=== PATIENT | male | born 1945 | race Caucasian/White ===

== ENCOUNTER 2020-02-22 13:20 | Emergency (ER) | payer MEDICARE, OTHER, SELFPAY ==
[2020-02-22 13:27] VITALS: BP 128/64; PULSE 97; RESP 16; TEMP 37; O2SAT 97; BMI 22.8
[2020-02-22 13:57] LABS: Appearance Urine UA CLEAR; Bilirubin Urine UA NEGATIVE (NEGATIVE); Color Urine UA YELLOW; Glucose Urine UA NEGATIVE (Negative); Ketones Urine UA NEGATIVE (NEGATIVE); Leukocyte Esterase Urine UA NEGATIVE (NEGATIVE); Nitrite Urine UA NEGATIVE (Negative); Occult Blood Urine UA 2+ (Negative); Protein Urine UA 2+ (Negative); Urobilinogen Urine UA 0.2 E.U./dL (0.2); pH Urine UA 6.5 (4.5-8.0)
[2020-02-22 14:08] LABS: RBC Urine 5-10/HPF (0-5/HPF); Squamous Epithelial Cell Urine 0-1 /HPF (0-5/HPF); WBC Urine 5-10/HPF (0-5/HPF)
[2020-02-22 14:09] LABS: Amorphous Sediment Urine 1+; Bacteria Urine Few (2-10); Culture Indicated Urine Specimen Cultured
--- NOTE | 2020-02-22 14:20 | PC.NURSE ---
patient comes into the ED with complaints of urinary symptoms. He states that on sunday he began having burning, urgency, and incontinence. He been increasingly fatigued and had an episode of confusion where he was not able to tell which day it was and feels the he ate 2 of his antibiotic pills within a 2 hour period. He also states that his scalp is hypersensitive to touch.
--- NOTE | 2020-02-22 14:33 | ED_ITS ---
HPI - Male Genitourinary <Shanthi Cabrales PA-C - Last Filed: 02/22/20 22:25> General Chief complaint: Urogenital-Male Stated complaint: UTI symptoms since Sunday Time Seen by Provider: 02/22/20 14:33 Source: patient Mode of arrival: Ambulatory History of Present Illness HPI Narrative: This is a well-appearing 75-year-old with hyperlipidemia, hypothyroid, rheumatoid arthritis no recent UTIs, who presents to the emergency department complaining of ongoing urgency and discomfort with urination after starting antibiotics for UTI Sunday night. His symptoms started on Sunday morning and gradually worsened throughout the day and included burning sensation with urination, irritation and bladder discomfort. He also had a fever yesterday of 101.3 in the afternoon after he had had 3 doses of cefuroxime. He also had confusion yesterday, his daughter said for a couple of hours he did not seem to know if it was morning or evening and was not able to answer questions appropriately. He seemed generally confused and he actually took 2 doses of his antibiotic yesterday evening one at 4:30 p.m. and one at 6:00 p.m. thinking that he had missed his dose. He says he is also feeling generally fatigued and more tired than usual. Daughter brought him to the emergency department though he has appeared well today has not had any confusion, they were concerned because of his confusion yesterday and that his antibiotics may not be appropriately treating his infection. He currently has no active pain except he says he is still having a burning uncomfortable sensation at the end of his stream and he is still having significant urgency with incontinence. He did not have an actual visit urinalysis or culture but was prescribed antibiotics over a telemedicine visit. Both patient and daughter deny that he had any speech changes, facial droop, coordination issues, headache, nausea, vomiting, chills, diarrhea or any other symptoms. Onset (ago): day(s) (2) Duration: constant and improved Related Data Home Medications Medication Instructions Recorded Confirmed CHOLECALCIFEROL (VITAMIN D) 2,000 iu PO #0 05/09/12 [ATORVASTATIN] 5 mg PO QDAY #0 09/30/12 ASPIRIN (Aspirin EC) 81 mg PO SEE INSTRUCTIONS #0 10/02/12 CA PANTOTHENATE/FOLIC ACID/VIT 1 tab PO Q3DAYS #0 10/02/12 (MULTIVITAMIN) CALCIUM CARBONATE (Calcium) 600 mg PO BIDCC #0 10/02/12 ascorbic acid (vitamin C) 500 mg PO Q3DAYS #0 10/02/12 prednisone 15 mg PO QDAY #0 10/02/12 cefuroxime axetil 500 mg PO BID 02/22/20 02/22/20 Previous Rx's Medication Instructions Recorded prednisone 5 - 10 mg PO BID #45 10/08/12 Allergies Allergy/AdvReac Type Severity Reaction Status Date / Time oxycodone Allergy Mild Rash on Verified 02/22/20 15:29 abdominal area Sulfa (Sulfonamide AdvReac Severe Vomiting Verified 02/22/20 15:28 Antibiotics) and Diarrhea Review of Systems <Shanthi Cabrales PA-C - Last Filed: 02/22/20 22:25> Review of Systems Narrative: GENERAL: Denies chills, positive for generalized fatigue, negative malaise, positive for fever, sweats. HEENT: Denies sinus pain, ear pain, sore throat, difficulty swallowing, dizziness. RESPIRATORY: Denies dyspnea, cough, wheezing, hemoptysis, sputum. CARDIOVASCULAR: Denies chest pain, palpitations, orthopnea, edema, GASTROINTESTINAL: Denies nausea, vomiting, abdominal pain, diarrhea, constipation, melena. : positive for dysuria, frequency, incontinence, negative for hematuria, urinary retention. MUSCULOSKELETAL: denies weakness, joint pain, or bony pain SKIN: Denies rash, skin lesions, or other NEUROLOGIC: Denies weakness, headache, numbness, change in speech, positive for episode of confusion yesterday, negative seizures, incoordination. PSYCHIATRIC: No concerning psychosocial issues. 12 point review of systems is negative except for those stated above Patient History <Shanthi Cabrales PA-C - Last Filed: 02/22/20 22:25> Social History Smoking Status: Former smoker Smoking Status: Former smoker alcohol intake frequency: a few times a week Alcohol type: wine Substance Use Type: does not use Exam <Shanthi Cabrales PA-C - Last Filed: 02/22/20 22:25> Narrative Exam Narrative: GENERAL: 75 year old patient appears stated age. Well-nourished, well-developed patient, in mild distress. HEAD: Atraumatic. Normocephalic. EYES: Pupils equal round and reactive. Extraocular motions intact. No scleral icterus. No injection or drainage. ENT: Nose without bleeding, purulent drainage. Throat without erythema, tonsillar hypertrophy or exudate. Airway patent. NECK: Trachea midline. Non tender CARDIOVASCULAR: Regular rate and rhythm without murmurs, gallops, or rubs. RESPIRATORY: Clear to auscultation. Breath sounds equal bilaterally. No wheezes, rales, or rhonchi. GASTROINTESTINAL: Abdomen soft, non-tender, nondistended. EXTREMITIES: No edema or joint tenderness. BACK: Nontender without deformity or crepitance. No flank or CVA tenderness. NEURO: AOx3. Cranial nerves are intact, strength is intact and equal 5/5 bilaterally UE and LE SKIN: No rash or erythema of visible areas Initial Vital Signs Initial Vital Signs: Vital Signs Temperature 98.6 F 02/22/20 13:27 Pulse Rate 97 H 02/22/20 13:27 Respiratory Rate 16 02/22/20 13:27 Blood Pressure 128/64 02/22/20 13:27 Pulse Oximetry 97 02/22/20 13:27 <Julieta Mays MD - Last Filed: 02/23/20 18:10> Initial Vital Signs Initial Vital Signs: Vital Signs Temperature 98.6 F 02/22/20 13:27 Pulse Rate 97 H 02/22/20 13:27 Respiratory Rate 16 02/22/20 13:27 Blood Pressure 128/64 02/22/20 13:27 Pulse Oximetry 97 02/22/20 13:27 Scores <Shanthi Cabrales PA-C - Last Filed: 02/22/20 22:25> GCS [place] coma scale eye opening: Spontaneous [place] coma scale verbal response: Orientated [place] coma scale motor response: Obey commands [place] coma scale total score: 15 Course <Shanthi Cabrales PA-C - Last Filed: 02/22/20 22:25> Course Course Narrative: Discussed this patient with attending physician Dr. Mays, he does have elevated white count of 18,000 although his lactate is not elevated. It appears that his symptoms are overall improving, his fever has improved with the cefuroxime, however his episode of confusion yesterday is concerning as well as his elevated white count today, plan to give him a bolus of fluid as well as give him ceftriaxone here in the emergency department IV before discharging him to continue his antibiotics orally at home. 15:21 Orders Ordered: Discontinued Medications Acetaminophen (Tylenol) 650 mg PO NOW ONE Stop: 02/22/20 15:58 Last Admin: 02/22/20 16:03 Dose: 650 mg Documented by: MARK Sodium Chloride (Normal Saline 0.9%) 1,000 mls @ 1,000 mls/hr IV BOLUS ONE Stop: 02/22/20 16:23 Last Admin: 02/22/20 15:32 Dose: 1,000 mls/hr Documented by: MARK Ceftriaxone Sodium/Dextrose (Rocephin) 2 gm in 50 mls @ 100 mls/hr IV NOW ONE Stop: 02/22/20 15:54 Last Infusion: 02/22/20 15:56 Dose: 0 mls/hr Documented by: Admin: 02/22/20 15:32 Dose: 100 mls/hr Documented by: MARK Vital Signs Vital signs: Vital Signs - 8 hr 02/22/20 17:04 Pulse Rate 89 Respiratory Rate 12 Blood Pressure 117/64 Pulse Oximetry 94 <Julieta Mays MD - Last Filed: 02/23/20 18:10> Orders Ordered: Discontinued Medications Acetaminophen (Tylenol) 650 mg PO NOW ONE Stop: 02/22/20 15:58 Last Admin: 02/22/20 16:03 Dose: 650 mg Documented by: MARK Sodium Chloride (Normal Saline 0.9%) 1,000 mls @ 1,000 mls/hr IV BOLUS ONE Stop: 02/22/20 16:23 Last Admin: 02/22/20 15:32 Dose: 1,000 mls/hr Documented by: MARK Ceftriaxone Sodium/Dextrose (Rocephin) 2 gm in 50 mls @ 100 mls/hr IV NOW ONE Stop: 02/22/20 15:54 Last Infusion: 02/22/20 15:56 Dose: 0 mls/hr Documented by: Admin: 02/22/20 15:32 Dose: 100 mls/hr Documented by: MARK Vital Signs Vital signs: Vital Signs - 8 hr 02/22/20 17:04 Pulse Rate 89 Respiratory Rate 12 Blood Pressure 117/64 Pulse Oximetry 94 MDM - Male Genitourinary <Shanthi Cabrales PA-C - Last Filed: 02/22/20 22:25> Differential Diagnosis Differential diagnosis: Likely urinary tract infection and other (Leukocytosis, fatigue) Medical Records Attestation: I reviewed the patient's medical records. Lab Data Attestation: I reviewed the patient's lab results. Result diagrams: 02/22/20 13:45 02/22/20 13:45 Labs: Lab Results 02/22/20 02/22/20 02/22/20 Range/Units 13:45 13:45 13:45 WBC 18.0 H (4.5-11.0) X10^3/uL RBC 3.94 L (4.5-5.9) X10^6/uL Hgb 13.4 L (13.5-17.5) g/dL Hct 39.2 L (41-53) % MCV 99.4 (80-100) fL MCH 33.9 (26-34) PG MCHC 34.1 (30-36) % RDW 14.4 (11.6-14.8) % Plt Count 178 (150-400) X10^3/uL Neut % (Auto) 83.6 H (50-75) % Lymph % (Auto) 6.6 L (25-40) % [place] % (Auto) 9.0 (3-14) % Eos % (Auto) 0.3 L (2-4) % Baso % (Auto) 0.5 (0-2) % Neut # (Auto) 89437 H (5389-4692) /uL Lymph # (Auto) 1200 (2726-5325) /uL [place] # (Auto) 1600 H (0-900) /uL Eos # (Auto) 0 (0-450) /uL Baso # (Auto) 100 (0-100) /uL Sodium 135 L (137-145) mmol/L Potassium 3.9 (3.4-5.1) mmol/L Chloride 100 (98-107) mmol/L Carbon Dioxide 28 (22-32) mmol/L BUN 15 (9-20) mg/dL Creatinine 0.96 (0.66-1.25) mg/dL Estimated GFR > 60.0 (>60) mL/min BUN/Creatinine Ratio 15.6 (6-22) Glucose 118 H (80-110) mg/dL Lactate 1.4 (0.7-2.1) mmol/L Calcium 9.4 (8.4-10.2) mg/dL Urine Color Urine Appearance Urine pH (4.5-8.0) Ur Specific [place] (1.000-1.035) Urine Protein (Negative) Urine Glucose (UA) (Negative) g/dL Urine Ketones (NEGATIVE) Urine Occult Blood (Negative) Urine Nitrate (Negative) Urine Bilirubin (NEGATIVE) Urine Urobilinogen (0.2) E.U./dL Ur Leukocyte Esterase (NEGATIVE) Urine RBC (0-5/HPF) Urine WBC (0-5/HPF) Ur Squamous Epith Cells (0-5/HPF) Amorphous Sediment Urine Bacteria (None) Ur Culture Indicated? 02/22/20 Range/Units 13:53 WBC (4.5-11.0) X10^3/uL RBC (4.5-5.9) X10^6/uL Hgb (13.5-17.5) g/dL Hct (41-53) % MCV (80-100) fL MCH (26-34) PG MCHC (30-36) % RDW (11.6-14.8) % Plt Count (150-400) X10^3/uL Neut % (Auto) (50-75) % Lymph % (Auto) (25-40) % [place] % (Auto) (3-14) % Eos % (Auto) (2-4) % Baso % (Auto) (0-2) % Neut # (Auto) (2132-9826) /uL Lymph # (Auto) (7638-5135) /uL [place] # (Auto) (0-900) /uL Eos # (Auto) (0-450) /uL Baso # (Auto) (0-100) /uL Sodium (137-145) mmol/L Potassium (3.4-5.1) mmol/L Chloride (98-107) mmol/L Carbon Dioxide (22-32) mmol/L BUN (9-20) mg/dL Creatinine (0.66-1.25) mg/dL Estimated GFR (>60) mL/min BUN/Creatinine Ratio (6-22) Glucose (80-110) mg/dL Lactate (0.7-2.1) mmol/L Calcium (8.4-10.2) mg/dL Urine Color Yellow Urine Appearance Clear Urine pH 6.5 (4.5-8.0) Ur Specific [place] 1.010 (1.000-1.035) Urine Protein 2+ H (Negative) Urine Glucose (UA) Negative (Negative) g/dL Urine Ketones Negative (NEGATIVE) Urine Occult Blood 2+ H (Negative) Urine Nitrate Negative (Negative) Urine Bilirubin Negative (NEGATIVE) Urine Urobilinogen 0.2 (0.2) E.U./dL Ur Leukocyte Esterase Negative (NEGATIVE) Urine RBC 5-10/hpf H (0-5/HPF) Urine WBC 5-10/hpf H (0-5/HPF) Ur Squamous Epith Cells 0-1 /hpf (0-5/HPF) Amorphous Sediment 1+ Urine Bacteria Few (2-10) H (None) Ur Culture Indicated? Specimen cultured MDM Narrative Medical decision making narrative: This is a generally healthy active 75-year-old gentleman with rheumatoid arthritis, hypothyroid, and hyperlipidemia who presents to the emergency department complaining of ongoing urinary symptoms though he has been taking antibiotics since Sunday evening. He developed acute urinary symptoms on Sunday which worsened throughout the day and was prescribed antibiotics after a telemedicine visit. Sunday he had an episode of confusion lasting about 2 hours and took multiple doses of his antibiotic (cefuroxime, 3 total during the day). He also had a fever at that time of 101.3. Since that time he has had no continued confusion, no fever and has been doing well other than feeling slightly fatigued. Labs today are unremarkable with exception of a leukocytosis. His vitals are unremarkable, he has a normal neuro exam, he does not meet sepsis criteria, his urinary symptoms have largely resolved with exception of continued mild dysuria and urge incontinence. I have low suspicion for CVA or TIA, I think his episode of confusion was likely due to his infection which is now improving after he has been on antibiotics for 2 days. After discussion with the attending physician, he was provided with a fluid bolus and ceftriaxone IV prior to discharge home to continue his oral antibiotics. He will have close follow-up with his primary care physician. He has a very attentive daughter, emergency return precautions provided, all questions answered. <Julieta Mays MD - Last Filed: 02/23/20 18:10> Lab Data Labs: Lab Results 02/22/20 02/22/20 02/22/20 Range/Units 13:45 13:45 13:45 WBC 18.0 H (4.5-11.0) X10^3/uL RBC 3.94 L (4.5-5.9) X10^6/uL Hgb 13.4 L (13.5-17.5) g/dL Hct 39.2 L (41-53) % MCV 99.4 (80-100) fL MCH 33.9 (26-34) PG MCHC 34.1 (30-36) % RDW 14.4 (11.6-14.8) % Plt Count 178 (150-400) X10^3/uL Neut % (Auto) 83.6 H (50-75) % Lymph % (Auto) 6.6 L (25-40) % [place] % (Auto) 9.0 (3-14) % Eos % (Auto) 0.3 L (2-4) % Baso % (Auto) 0.5 (0-2) % Neut # (Auto) 50282 H (7351-7313) /uL Lymph # (Auto) 1200 (4331-2152) /uL [place] # (Auto) 1600 H (0-900) /uL Eos # (Auto) 0 (0-450) /uL Baso # (Auto) 100 (0-100) /uL Sodium 135 L (137-145) mmol/L Potassium 3.9 (3.4-5.1) mmol/L Chloride 100 (98-107) mmol/L Carbon Dioxide 28 (22-32) mmol/L BUN 15 (9-20) mg/dL Creatinine 0.96 (0.66-1.25) mg/dL Estimated GFR > 60.0 (>60) mL/min BUN/Creatinine Ratio 15.6 (6-22) Glucose 118 H (80-110) mg/dL Lactate 1.4 (0.7-2.1) mmol/L Calcium 9.4 (8.4-10.2) mg/dL Urine Color Urine Appearance Urine pH (4.5-8.0) Ur Specific [place] (1.000-1.035) Urine Protein (Negative) Urine Glucose (UA) (Negative) g/dL Urine Ketones (NEGATIVE) Urine Occult Blood (Negative) Urine Nitrate (Negative) Urine Bilirubin (NEGATIVE) Urine Urobilinogen (0.2) E.U./dL Ur Leukocyte Esterase (NEGATIVE) Urine RBC (0-5/HPF) Urine WBC (0-5/HPF) Ur Squamous Epith Cells (0-5/HPF) Amorphous Sediment Urine Bacteria (None) Ur Culture Indicated? 02/22/20 Range/Units 13:53 WBC (4.5-11.0) X10^3/uL RBC (4.5-5.9) X10^6/uL Hgb (13.5-17.5) g/dL Hct (41-53) % MCV (80-100) fL MCH (26-34) PG MCHC (30-36) % RDW (11.6-14.8) % Plt Count (150-400) X10^3/uL Neut % (Auto) (50-75) % Lymph % (Auto) (25-40) % [place] % (Auto) (3-14) % Eos % (Auto) (2-4) % Baso % (Auto) (0-2) % Neut # (Auto) (4204-2037) /uL Lymph # (Auto) (4321-1585) /uL [place] # (Auto) (0-900) /uL Eos # (Auto) (0-450) /uL Baso # (Auto) (0-100) /uL Sodium (137-145) mmol/L Potassium (3.4-5.1) mmol/L Chloride (98-107) mmol/L Carbon Dioxide (22-32) mmol/L BUN (9-20) mg/dL Creatinine (0.66-1.25) mg/dL Estimated GFR (>60) mL/min BUN/Creatinine Ratio (6-22) Glucose (80-110) mg/dL Lactate (0.7-2.1) mmol/L Calcium (8.4-10.2) mg/dL Urine Color Yellow Urine Appearance Clear Urine pH 6.5 (4.5-8.0) Ur Specific [place] 1.010 (1.000-1.035) Urine Protein 2+ H (Negative) Urine Glucose (UA) Negative (Negative) g/dL Urine Ketones Negative (NEGATIVE) Urine Occult Blood 2+ H (Negative) Urine Nitrate Negative (Negative) Urine Bilirubin Negative (NEGATIVE) Urine Urobilinogen 0.2 (0.2) E.U./dL Ur Leukocyte Esterase Negative (NEGATIVE) Urine RBC 5-10/hpf H (0-5/HPF) Urine WBC 5-10/hpf H (0-5/HPF) Ur Squamous Epith Cells 0-1 /hpf (0-5/HPF) Amorphous Sediment 1+ Urine Bacteria Few (2-10) H (None) Ur Culture Indicated? Specimen cultured Discharge Plan Departure Patient Disposition: Home Clinical Impression: Urinary tract infection Qualifiers: Urinary tract infection type: acute cystitis Hematuria presence: without hematuria Qualified Code(s): N30.00 - Acute cystitis without hematuria Leukocytosis Qualifiers: Leukocytosis type: unspecified Qualified Code(s): D72.829 - Elevated white blood cell count, unspecified Discharge Date/Time: 02/22/20 17:06 Instructions: DI for Urinary Tract Infection (UTI) Activity Restrictions/Additional Instructions: Thank you for letting us to be part of your care today in the emergency department. Will most of your labs look good today, you still have evidence that your body's fighting a urinary tract infection, with an elevated white count and findings on your urinalysis. I do not think that you have an infection that has extended to your kidneys at this point, however your episode of confusion yesterday is concerning and in light of the fact that you also had a fever yesterday and to have an elevated white count today we administered IV fluids and IV antibiotics in the emergency department. You should still continue to take your oral antibiotics as prescribed. I think that these were beginning to work well but having the additional IV antibiotics today should help to keep your infection from worsening. Please keep monitoring her symptoms at home including checking your temperature, please try to stay well hydrated. I would like you to see your primary care provider in the next few days for follow-up. If you continue to have issues with incontinence even after the rather low resolution of your infection, you may also want to see a urologist. I suspect this symptom is due to your infection as you state that that is new for you. If you have new, worsening or concerning symptoms do not hesitate to seek medical care return to the emergency department for further evaluation. Th ere is no evidence of an emergent or life threatening illness at this time, but follow up with your doctor in 1-2 days is recommended nonetheless to continue to rule out serious underlying causes of your symptoms. Please call the office for an appointment. Please return to the Emergency Department for any worsening or persistent symptoms. Please take medications as directed. Prescriptions: No Action CHOLECALCIFEROL (VITAMIN D) 2,000 iu PO Qty: 0 RF: 0 prednisone 20 MG tablet 5 - 10 mg PO BID Qty: 45 RF: 0 [ATORVASTATIN] 5 mg PO QDAY Qty: 0 RF: 0 ASPIRIN (Aspirin EC) 81 mg PO SEE INSTRUCTIONS Qty: 0 RF: 0 prednisone 5 MG tablet 15 mg PO QDAY Qty: 0 RF: 0 CA PANTOTHENATE/FOLIC ACID/VIT (MULTIVITAMIN) 1 tab PO Q3DAYS Qty: 0 RF: 0 CALCIUM CARBONATE (Calcium) 600 mg PO BIDCC Qty: 0 RF: 0 ascorbic acid (vitamin C) 500 MG tablet 500 mg PO Q3DAYS Qty: 0 RF: 0 cefuroxime axetil 500 mg Tablet 500 mg PO BID RF: 0 Referrals: Kami Solares MD [Primary Care Provider] - <Julieta Mays MD - Last Filed: 02/23/20 18:10> Cosign ED Attending Cosignature Attestation: I was immediately available in the department for consultation throughout this patient's visit. I agree with documentation as above. Julieta Mays MD
[2020-02-22 15:01] LABS: Add Manual Diff / Slide Review NO; Basophils Absolute Auto 100 /uL (0-100); Basophils Percent Auto 0.5 % (0-2); Eosinophils Absolute Auto 0 /uL (0-450); Eosinophils Percent Auto 0.3 % (2-4); Hematocrit 39.2 % (41-53); Hemoglobin 13.4 g/dL (13.5-17.5); Lymphocytes Absolute Auto 1200 /uL (1100-4500); Lymphocytes Percent Auto 6.6 % (25-40); Mean Corpuscular HGB Conc 34.1 % (30-36); Mean Corpuscular Hemoglobin 33.9 PG (26-34); Mean Corpuscular Volume 99.4 fL (80-100); Monocytes Absolute Auto 1600 /uL (0-900); Neutrophils Absolute Auto 15100 /uL (1500-7000); Neutrophils Percent Auto 83.6 % (50-75); Platelet Count 178 X10^3/uL (150-400); Red Blood Cell Count 3.94 X10^6/uL (4.5-5.9); Red Cell Distribution Width 14.4 % (11.6-14.8)
[2020-02-22 15:05] LABS: Lactate (Lactic Acid) 1.4 mmol/L (0.7-2.1)
[2020-02-22 15:06] LABS: BUN Creatinine Ratio 15.6 (6-22); Blood Urea Nitrogen 15 mg/dL (9-20); Calcium 9.4 mg/dL (8.4-10.2); Carbon Dioxide 28 mmol/L (22-32); Chloride 100 mmol/L (98-107); Estimated Glomerular Filt Rate > 60.0 mL/min (>60); Glucose 118 mg/dL (80-110); HEMOLYSIS < 15 (0-50); Potassium 3.9 mmol/L (3.4-5.1); Sodium 135 mmol/L (137-145)
[2020-02-22] MEDS: SODIUM CHLORIDE 0.9% 1,000 ML 1000 ML IV (15:32)
[2020-02-22] MEDS: CEFTRIAXONE 2 GM/50 ML FROZ.PIGGY IV (15:32)
[2020-02-22] MEDS: ACETAMINOPHEN 325 MG TABLET 650 MG PO (16:03)
[2020-02-22 17:04] VITALS: BP 117/64; PULSE 89; RESP 12; O2SAT 94
== END 2020-02-22 17:06 | disposition home or self-care (01) ==
PROVIDERS: Emergency Medicine; Emergency Provider Student in an Organized Health Care Education/Training Program; PCP Student in an Organized Health Care Education/Training Program
DX: N30.00 Acute cystitis without hematuria (principal); D72.829 Elevated white blood cell count, unspecified
CPT/HCPCS: 36415; 80048; 81001; 83605; 85025; 87086; 96365; 99284; J0696

== ENCOUNTER → 2020-06-07 11:05 | Outpatient (CLI) | payer MEDICARE, OTHER, SELFPAY ==
[2020-06-07 12:17] LABS: COVID19 -Nasal RAPID Negative (Negative)
== END ==
PROVIDERS: PCP Student in an Organized Health Care Education/Training Program; Visit Provider Physician Assistant
DX: Z01.812 Encounter for preprocedural laboratory examination; Z20.828 Contact with and (suspected) exposure to other viral communicable diseases
CPT/HCPCS: 87635; C9803

== ENCOUNTER → 2020-06-09 15:06 | Outpatient (CLI) | payer MEDICARE, OTHER, SELFPAY | PROVIDERS: PCP Student in an Organized Health Care Education/Training Program; Referring Provider Student in an Organized Health Care Education/Training Program; Visit Provider Student in an Organized Health Care Education/Training Program | DX: R42 Dizziness and giddiness (principal); Z53.9 Procedure and treatment not carried out, unspecified reason ==

== ENCOUNTER → 2020-07-03 13:10 | Outpatient (CLI) | payer MEDICARE, OTHER, SELFPAY ==
[2020-07-03 14:40] LABS: COVID19 -Nasal RAPID Negative (Negative)
== END ==
PROVIDERS: PCP Student in an Organized Health Care Education/Training Program; Visit Provider Nurse Practitioner
DX: Z01.812 Encounter for preprocedural laboratory examination (principal); Z20.822 Contact with and (suspected) exposure to COVID-19
CPT/HCPCS: 87635; C9803

== ENCOUNTER → 2020-07-05 15:16 | Outpatient (CLI) | payer MEDICARE, OTHER, SELFPAY ==
--- NOTE | 2020-07-05 15:48 | PM.TREADMILL ---
Cardiac Stress Test Report Referral & Results Date Patient Seen: 07/05/20 Time Patient Seen: 15:48 Requesting provider: Kami Solares Indication: dizziness and giddiness Rest ECG: sinus rhythm Procedure Note: Standard Royer protocol, 4:55, 5.9 METS Slightly reduced exercise capacity, NIDA +9% Normal hemodynamic response to exercise No chest pain or anginal symptoms 1.[address] depression in II, III, aVF, V4-V6 Impression: positive exercise stress test Please note: Actual ECG tracings can be found in the PACS system.
--- NOTE | 2020-07-05 20:04 | DI.NM.S_ITS ---
DATE OF SERVICE: 07/05/2020 NO DICTATION Samuel Manning - LIVIER/dai/guille doc#: [id number]/job#: [id number] dd: 07/05/2020 17:33:00 dt: 07/05/2020 19:54:00 DICTATING MD/COPIES TO: Floridalma Little MD COPIES MNE: BENITO;
--- NOTE | 2020-07-05 20:11 | DI.NM.S_ITS ---
DATE OF SERVICE: 07/05/2020 PROCEDURE: Exercise stress test. INDICATION: Dizziness, presyncope. EXERCISE STRESS TEST: The patient underwent exercise stress test under the supervision of an attending staff. He walked on Royer protocol for 4 minutes 55 seconds, achieved 97 percent of target heart rate and normal blood pressure response, 7 METs of workload and functional aerobic impairment positive 9 percent. Baseline rhythm was sinus with some flattening and repolarization changes in the inferior lateral leads. During exercise, artifacts were seen, but in immediate recovery, the patient has up to 1.5 mm horizontal, as well as upsloping ST depression, in inferior leads and V4 to V6 and about [address]- elevation in lead aVR. ST depression lasted for more than 5 minutes in recovery. The patient did not have any chest pain or anginal symptoms. He felt fatigued. CONCLUSION: Exercise test is positive for inducible ischemia. Diminished exercise tolerance. No significant arrhythmia seen. Normal hemodynamic response. Discussed the finding with the second cutter physician, Dr. Ulloa, who is taking care of and covering Dr. Solares. Will recommend treating this patient like a coronary artery disease and consider left heart catheterization. Samuel Manning - LIVIER/dai/guille doc#: [id number]/job#: [id number] dd: 07/05/2020 17:42:00 dt: 07/05/2020 19:54:00 DICTATING /COPIES TO: Floridalma Little MD COPIES MNE: BEN[place]O;
== END ==
PROVIDERS: PCP Student in an Organized Health Care Education/Training Program; Referring Provider Student in an Organized Health Care Education/Training Program; Visit Provider Student in an Organized Health Care Education/Training Program
DX: I25.9 Chronic ischemic heart disease, unspecified (principal); R42 Dizziness and giddiness; R55 Syncope and collapse
CPT/HCPCS: 93017

== ENCOUNTER 2020-08-01 15:03 | Observation (INO) | payer MEDICARE, OTHER, SELFPAY ==
[2020-08-01] VITALS (14 sets, daily range): BP systolic 128–169; BP diastolic 73–80; PULSE 61–74; RESP 14–24; TEMP 36.4–37.2; O2SAT 97–100; BMI 22.8
--- NOTE | 2020-08-01 15:09 | ED.GENADULT ---
HPI - General Adult General Chief complaint: Dizziness Stated complaint: dizzy spell, weakness, left arm numbness Time Seen by Provider: 08/01/20 15:08 Source: patient and family Mode of arrival: Ambulatory Limitations: no limitations History of Present Illness HPI narrative: Patient is a 75-year-old male. History of rheumatoid arthritis, hypothyroidism, hypertension and coronary artery disease here for evaluation of dizziness, left-sided facial tingling, left arm numbness. He states the symptoms started approximately noon today. He was standing in the kitchen making some food when the episodes occurred. He denies any chest pain or shortness of breath. He has had dizziness in the past and has seen his primary doctor for this. Has also seen Cardiology. Approximately 2 weeks ago had an exercise stress test which did show reversible ischemia. Patient states that he was sent to see Cardiology for by his primary doctor because of the dizziness that he has had. He states that today his dizziness is what he has had in the past however he has never had the fatigue or the facial tingling or the left arm numbness or the balance issues that are associated with it. He states that at the time of my exam his symptoms have improved since her onset but he is not back to baseline. He describes the dizziness as more of a difficulty walking and not a room spinning sensation. Has not tried anything for symptoms prior to arrival Related Data Home Medications Medication Instructions Recorded Confirmed CHOLECALCIFEROL (VITAMIN D) 2,000 iu PO #0 05/09/12 07/06/20 [ATORVASTATIN] 5 mg PO QDAY #0 09/30/12 07/06/20 ASPIRIN (Aspirin EC) 81 mg PO SEE INSTRUCTIONS #0 10/02/12 07/06/20 CA PANTOTHENATE/FOLIC ACID/VIT 1 tab PO Q3DAYS #0 10/02/12 07/06/20 (MULTIVITAMIN) CALCIUM CARBONATE (Calcium) 600 mg PO BIDCC #0 10/02/12 07/06/20 ascorbic acid (vitamin C) 500 mg PO Q3DAYS #0 10/02/12 07/06/20 prednisone 15 mg PO QDAY #0 10/02/12 07/06/20 cefuroxime axetil 500 mg PO BID 02/22/20 07/06/20 atorvastatin 20 mg tablet 20 mg PO DAILY 06/01/20 07/06/20 calcium carbonate 500 mg calcium 500 mg PO DAILY 06/01/20 07/06/20 (1,250 mg) tablet cholecalciferol (vitamin D3) 50 50 mcg PO DAILY 06/01/20 07/06/20 mcg (2,000 unit) capsule levothyroxine 50 mcg tablet 50 mcg PO DAILY 06/01/20 07/06/20 naphazo HCl 0.025 %-hyprome 0.2 drp OPHTHALMIC (EYE) 06/01/20 07/06/20 %-ps 80 0.5 %-Zn sulf 0.25 % eye drops vitamin B complex 1 tab PO DAILY 06/01/20 07/06/20 zinc 50 mg tablet 50 mg PO DAILY 06/01/20 07/06/20 Previous Rx's Medication Instructions Recorded prednisone 5 - 10 mg PO BID #45 10/08/12 Allergies Allergy/AdvReac Type Severity Reaction Status Date / Time oxycodone Allergy Mild Rash on Verified 07/06/20 10:28 abdominal area ciprofloxacin Allergy Verified 07/06/20 10:28 Sulfa (Sulfonamide AdvReac Severe Vomiting Verified 07/06/20 10:28 Antibiotics) and Diarrhea Review of Systems Constitutional Constitutional: Denies fever(s), Denies headache(s) and Reports weakness Eyes Eyes: Denies exophthalmos ENT Ears, Nose, Mouth, and Throat: Denies vertigo, Reports dizziness, Denies otalgia, Denies headache(s), Reports disequilibrium and Denies sore throat Cardiovascular Cardiovascular: Denies chest pain, Denies rapid heart rate and Denies dyspnea Respiratory Respiratory: Denies cough and Denies dyspnea Gastrointestinal Gastrointestinal: Denies abdominal pain, Denies nausea and Denies vomiting Genitourinary Genitourinary: Denies dysuria Genitourinary: Denies dysuria Musculoskeletal Musculoskeletal: Reports abnormal gait, Denies arthralgias, Denies myalgias and Denies tingling Integumentary/Breasts Skin/Breast: Denies lesions and Denies rash Neurologic Neurologic: Denies abnormal speech, Reports abnormal gait, Denies confusion, Denies vertigo, Reports dizziness, Denies headache(s), Reports lack of coordination, Denies convulsions, Denies tingling, Reports disequilibrium and Reports weakness Psychiatric Psychiatric: Denies confusion Hematologic/Lymphatic On Anticoagulants: No Allergic/Immunologic Allergic/Immunologic: Denies urticaria Patient History Medical History BPH NOS w/o ur obs/LUTS Elevated PSA Erectile dysfunction Osteoarthritis Rheumatoid arthritis Surgical History History of back surgery Family History Brother Hearing impaired Social History marital status: number of children: 1 occupational status: previously employed Smoking Status: Former smoker alcohol intake: current caffeine: Yes Smoking Status: Former smoker alcohol intake frequency: a few times a week Alcohol type: wine Substance Use Type: does not use Exam Initial Vital Signs Initial Vital Signs: Vital Signs Temperature 97.8 F 08/01/20 15:07 Pulse Rate 65 08/01/20 15:07 Respiratory Rate 20 08/01/20 15:07 Blood Pressure 153/73 H 08/01/20 15:07 Pulse Oximetry 98 08/01/20 15:07 Const General: cooperative, healthy appearing, comfortable, well developed, well groomed and No acute distress Limitations: mental status not altered HENSC Head: normal to inspection and normocephalic Resp Effort & Inspection: normal respiratory effort Auscultation: clear to auscultation bilaterally Cardio Rate: regular rate Rhythm: regular rhythm GI Inspection: non-distended Skin Lesions: no lesions Rashes: no rashes Neuro General: patient alert, patient awake and patient oriented x3 Cranial Nerves: CN's II-XI intact bilaterally Cognition: normal cognition Speech: speech normal Gait: ataxic Motor: muscle tone normal throughout Sensory Exam: no sensory deficits noted Extrem General: capillary refill normal and No edema Psych Appearance: grossly normal and well kempt Scores GCS Pardeep coma scale eye opening: Spontaneous [place] coma scale verbal response: Orientated [place] coma scale motor response: Obey commands Pardeep coma scale total score: 15 Course Orders Ordered: ED Orders 08/01/20 15:10 EKG-12 Lead Stat 08/01/20 15:11 XR chest 1V Stat Complete Blood Count AUTO DIFF Stat Comprehensive Metabolic Panel Stat Lipase Stat NT-proBNP (BNP-Adult 18+) Stat Partial Thromboplastin Time Stat Prothrombin Time INR Stat Troponin & CK Cardiac Panel Stat 08/01/20 15:20 COVID19 Stat 08/01/20 15:29 CT head/brain wo con Stat Discontinued Medications Aspirin (Aspirin 81 Mg Chew Tab) 324 mg PO NOW ONE Stop: 08/01/20 16:58 Last Admin: 08/01/20 17:10 Dose: 324 mg Documented by: HERIBERTO Vital Signs Vital signs: Vital Signs - 8 hr 08/01/20 15:07 08/01/20 15:17 08/01/20 15:23 Temperature 97.8 F Pulse Rate 65 73 74 Respiratory Rate 20 24 22 Blood Pressure 153/73 H Pulse Oximetry 98 99 100 08/01/20 15:24 08/01/20 15:30 08/01/20 16:00 Temperature Pulse Rate 63 70 72 Respiratory Rate 17 17 14 Blood Pressure 150/77 H 157/75 H Pulse Oximetry 98 99 97 08/01/20 16:06 08/01/20 16:30 08/01/20 17:00 Temperature Pulse Rate 71 64 69 Respiratory Rate 22 15 20 Blood Pressure 144/78 H 145/77 H Pulse Oximetry 98 97 99 08/01/20 17:01 Temperature Pulse Rate 68 Respiratory Rate 19 Blood Pressure 169/78 H Pulse Oximetry 99 Medical Decision Making Medical Records Medical records reviewed: Yes I reviewed the patient's medical records. Lab Data Lab results reviewed: Yes I reviewed the patient's lab results. Result diagrams: 08/01/20 15:11 08/01/20 15:11 Labs: Lab Results 08/01/20 08/01/20 08/01/20 Range/Units 15:11 15:11 15:11 WBC 6.6 (4.5-11.0) X10^3/uL RBC 4.84 (4.5-5.9) X10^6/uL Hgb 14.8 (13.5-17.5) g/dL Hct 45.5 (41-53) % MCV 94.1 (80-100) fL MCH 30.5 (26-34) PG MCHC 32.4 (30-36) % RDW 13.6 (11.6-14.8) % Plt Count 205 (150-400) X10^3/uL Neut % (Auto) 48.5 L (50-75) % Lymph % (Auto) 36.9 (25-40) % [place] % (Auto) 10.3 (3-14) % Eos % (Auto) 2.9 (2-4) % Baso % (Auto) 1.4 (0-2) % Neut # (Auto) 3200 (9035-2501) /uL Lymph # (Auto) 2400 (3367-8463) /uL [place] # (Auto) 700 (0-900) /uL Eos # (Auto) 200 (0-450) /uL Baso # (Auto) 100 (0-100) /uL PT 12.0 (10.1-12.7) SECONDS INR 1.0 (0.9-1.3) APTT 35 (26.4-36.2) SECONDS Sodium 137 (137-145) mmol/L Potassium 4.1 (3.4-5.1) mmol/L Chloride 102 (98-107) mmol/L Carbon Dioxide 31 (22-32) mmol/L BUN 18 (9-20) mg/dL Creatinine 1.09 (0.66-1.25) mg/dL Estimated GFR > 60.0 (>60) mL/min BUN/Creatinine Ratio 16.5 (6-22) Glucose 117 H (80-110) mg/dL Calcium 9.4 (8.4-10.2) mg/dL Total Bilirubin 0.4 (0.2-1.3) mg/dL AST 36 (17-59) IU/L ALT 26 (<50) IU/L Alkaline Phosphatase 77 (38-126) U/L Total Creatine Kinase 59 (55-170) U/L CK-MB (CK-2) TNP CK-MB (CK-2) Rel Index TNP Troponin I < 0.012 (0.01-0.034) ng/mL NT-Pro-B Natriuret Pep 341 (<450) pg/mL Total Protein 7.8 (6.3-8.2) g/dL Albumin 4.0 (3.5-5.0) g/dL Globulin 3.8 (1.7-4.1) g/dL Albumin/Globulin Ratio 1.1 (1.0-2.8) Lipase 183 (23-300) U/L SARS-CoV-2 (PCR) (Negative) 08/01/20 Range/Units 15:20 WBC (4.5-11.0) X10^3/uL RBC (4.5-5.9) X10^6/uL Hgb (13.5-17.5) g/dL Hct (41-53) % MCV (80-100) fL MCH (26-34) PG MCHC (30-36) % RDW (11.6-14.8) % Plt Count (150-400) X10^3/uL Neut % (Auto) (50-75) % Lymph % (Auto) (25-40) % [place] % (Auto) (3-14) % Eos % (Auto) (2-4) % Baso % (Auto) (0-2) % Neut # (Auto) (8206-7914) /uL Lymph # (Auto) (4215-1997) /uL [place] # (Auto) (0-900) /uL Eos # (Auto) (0-450) /uL Baso # (Auto) (0-100) /uL PT (10.1-12.7) SECONDS INR (0.9-1.3) APTT (26.4-36.2) SECONDS Sodium (137-145) mmol/L Potassium (3.4-5.1) mmol/L Chloride (98-107) mmol/L Carbon Dioxide (22-32) mmol/L BUN (9-20) mg/dL Creatinine (0.66-1.25) mg/dL Estimated GFR (>60) mL/min BUN/Creatinine Ratio (6-22) Glucose (80-110) mg/dL Calcium (8.4-10.2) mg/dL Total Bilirubin (0.2-1.3) mg/dL AST (17-59) IU/L ALT (<50) IU/L Alkaline Phosphatase (38-126) U/L Total Creatine Kinase (55-170) U/L CK-MB (CK-2) CK-MB (CK-2) Rel Index Troponin I (0.01-0.034) ng/mL NT-Pro-B Natriuret Pep (<450) pg/mL Total Protein (6.3-8.2) g/dL Albumin (3.5-5.0) g/dL Globulin (1.7-4.1) g/dL Albumin/Globulin Ratio (1.0-2.8) Lipase (23-300) U/L SARS-CoV-2 (PCR) Negative (Negative) Imaging Data CT scan - head: Radiologist's Impression: Findings consistent with cerebral volume loss and microvascular ischemic changes. Age indeterminate although likely chronic lacunar infarcts are noted within the left frontal and right parietal lobes. No acute trans cortical infarction. ECG Data Attestation: I personally reviewed and interpreted this ECG as follows: Prior ECG tracings: not available for review Interpretation: Sinus rhythm Ventricular rate is 71 Normal axis Normal QRS Normal QTC No ST T wave changes MDM Narrative Medical decision making narrative: Patient denies any chest pain or shortness of breath. His EKG is unremarkable. Troponin is unremarkable. The dizziness that he had today is more of a lightheadedness and not vertigo. It appears that he has had this in the past. What is new today is the fatigue and the tingling in his left arm and the gait issues. Given his presentation and his history there is concerned about TIA/CVA. I have more suspicion for a neurologic issue rather than a cardiovascular issue although this is somewhat of a concern given his presentation and also his prior stress test result. I discussed the case with Dr. Hernandez who is on-call for the patient's primary provider who will admit for further evaluation and treatment. I did discuss this with the patient as well and he expressed understanding and agreement. Discharge Plan Departure Patient Disposition: Admitted as Observation Clinical Impression: TIA (transient ischemic attack) Admit Date/Time: 08/01/20 17:13 Admit Provider: Tone Hernandez
--- NOTE | 2020-08-01 15:11 | DI.RAD.S_ITS ---
PROCEDURE: XR CHEST 1V INDICATIONS: chest pain TECHNIQUE: One view of the chest was acquired. COMPARISON: None. FINDINGS: Surgical changes and devices: None. Lungs and pleura: Lungs are clear. No pleural effusions or pneumothorax. There is likely an azygos fissure, normal variant. Mediastinum: Mediastinal contours appear normal. Heart size is normal. Bones and chest wall: No suspicious bony lesions. Heterogeneous region of sclerosis within the proximal left humeral metaphysis which may represent enchondroma versus bone infarct. Mild degenerative changes of the spine and shoulders. Overlying soft tissues appear unremarkable. IMPRESSION: No evidence of an acute cardiopulmonary abnormality. Dictated by: Misael Coppola D.O. on 08/01/2020 at 14:49 Approved by: Misael Coppola D.O. on 08/01/2020 at 14:51
[2020-08-01 15:28] LABS: Add Manual Diff / Slide Review NO; Basophils Absolute Auto 100 /uL (0-100); Basophils Percent Auto 1.4 % (0-2); Eosinophils Absolute Auto 200 /uL (0-450); Eosinophils Percent Auto 2.9 % (2-4); Hematocrit 45.5 % (41-53); Hemoglobin 14.8 g/dL (13.5-17.5); Lymphocytes Absolute Auto 2400 /uL (1100-4500); Lymphocytes Percent Auto 36.9 % (25-40); Mean Corpuscular HGB Conc 32.4 % (30-36); Mean Corpuscular Hemoglobin 30.5 PG (26-34); Mean Corpuscular Volume 94.1 fL (80-100); Monocytes Absolute Auto 700 /uL (0-900); Monocytes Percent Auto 10.3 % (3-14); Neutrophils Absolute Auto 3200 /uL (1500-7000); Neutrophils Percent Auto 48.5 % (50-75); Platelet Count 205 X10^3/uL (150-400); Red Blood Cell Count 4.84 X10^6/uL (4.5-5.9); Red Cell Distribution Width 13.6 % (11.6-14.8); White Blood Cell Count 6.6 X10^3/uL (4.5-11.0)
--- NOTE | 2020-08-01 15:29 | DI.CT.S_ITS ---
PROCEDURE: CT HEAD/BRAIN WO CON INDICATIONS: dizziness and ataxic gait TECHNIQUE: Noncontrast 4.5 mm thick angled axial sections acquired from the foramen magnum to the vertex, with coronal and sagittal reformats. For radiation dose reduction, the following was used: automated exposure control, adjustment of mA and/or kV according to patient size. COMPARISON: None. FINDINGS: Image quality: Artifact at the skull base. CSF spaces: Ventricles and extra-axial CSF spaces are prominent consistent with cerebral atrophy and ex vacuo dilatation. Brain: There is diffuse foci and confluent regions of white matter hypoattenuation. This includes age indeterminate, likely chronic lacunar infarcts within the left frontal and right parietal lobes . No acute intracranial hemorrhage. No mass effect or midline shift. Atherosclerotic calcifications are noted within the proximal intracranial vasculature. Garza-white matter differentiation is maintained. Skull and face: Calvarium and visualized facial bones appear intact, without suspicious lesions. Sinuses: Visualized sinuses and mastoids are clear. IMPRESSION: Findings consistent with cerebral volume loss and microvascular ischemic changes. Age indeterminate although likely chronic lacunar infarcts are noted within the left frontal and right parietal lobes. No acute transcortical infarction. Dictated by: Misael Coppola D.O. on 08/01/2020 at 14:56 Approved by: Misael Coppola D.O. on 08/01/2020 at 15:00
[2020-08-01 15:40] LABS: PTT Partial Thromboplastin Tim 35 SECONDS (26.4-36.2)
[2020-08-01 15:41] LABS: Alanine Aminotransferase 26 IU/L (<50); Albumin Globulin Ratio 1.1 (1.0-2.8); Alkaline Phosphatase 77 U/L (38-126); Aspartate Aminotransferase 36 IU/L (17-59); BUN Creatinine Ratio 16.5 (6-22); Bilirubin Total 0.4 mg/dL (0.2-1.3); Blood Urea Nitrogen 18 mg/dL (9-20); Calcium 9.4 mg/dL (8.4-10.2); Carbon Dioxide 31 mmol/L (22-32); Chloride 102 mmol/L (98-107); Creatine Kinase 59 U/L (55-170); Estimated Glomerular Filt Rate > 60.0 mL/min (>60); Globulin 3.8 g/dL (1.7-4.1); Glucose 117 mg/dL (80-110); HEMOLYSIS < 15 (0-50); Lipase 183 U/L (23-300); Potassium 4.1 mmol/L (3.4-5.1); Sodium 137 mmol/L (137-145); Total Protein 7.8 g/dL (6.3-8.2)
[2020-08-01 15:53] LABS: NT-proBNP (BNP-Adult 18+) 341 pg/mL (<450); Troponin I < 0.012 ng/mL (0.01-0.034)
[2020-08-01 15:56] LABS: COVID19 -Nasal RAPID Negative (Negative)
[2020-08-01] MEDS: ASPIRIN 81 MG CHEW TAB 324 MG PO (17:10)
--- NOTE | 2020-08-01 17:27 | PM.HP.1 ---
History of Present Illness History of Present Illness Date Patient Seen: 08/01/20 Time Patient Seen: 17:39 Chief complaint: dizzy spell, weakness, left arm numbness Narrative: 75-year-old male history of hyperlipidemia hypothyroidism rheumatoid arthritis with some recent ongoing dizziness and lightheadedness. Patient presents to the emergency department today with onset of left arm numbness tingling and subjective feeling of weakness in addition to that he had left facial numbness. Did not notice any difficulty with facial muscle weakness. He had clarity of speech. He also had worsening of his balance problem. He just feels out of sorts. Likely needs to hold off moving because he may fall over he needs to hold on the something is always looking for something test to grab. He says the rooms not spinning around him he does not feel like his legs are weak he just feels off balance. Patient states this has been ongoing here for the last few months. He has been seeing his primary care doctor and they been doing some workup on his heart. At this time he is says his face numbness like Novocain his arm numbness is like Novocain feels like his left hand is weak in feels like his balance is good he is a good historian. He has no obvious facial muscle weakness no difficulty with speech or word-finding his daughter is at his bedside. He has no complaints of chest pain palpitations or shortness of breath. He states that he has had normal bowel movements normal urination. No abdominal pain. He has had no recent changes of his medication he denies any metal in his body or heart valves or aneurysm clips. He says he has a no code. He does not want to be on life support. Reviewed laboratory test done in the emergency room which are fairly unremarkable including cardiac troponin. CT scan shows age-related changes. Patient History Medical History (Updated 08/01/20 @ 17:28 by Tone Hernandez MD) BPH NOS w/o ur obs/LUTS Elevated PSA Erectile dysfunction Osteoarthritis Rheumatoid arthritis Surgical History History of back surgery Family & Social History Family History Brother Hearing impaired Tobacco & Substance use: Smoking Status Former smoker alcohol intake current alcohol intake frequency a few times a week Substance Use Type does not use Meds Home Medications and Allergies Home Medications Medication Instructions Recorded Confirmed Type CHOLECALCIFEROL (VITAMIN D) 2,000 iu PO #0 05/09/12 07/06/20 History [ATORVASTATIN] 5 mg PO QDAY #0 09/30/12 07/06/20 History ASPIRIN (Aspirin EC) 81 mg PO SEE INSTRUCTIONS #0 10/02/12 07/06/20 History CA PANTOTHENATE/FOLIC ACID/VIT 1 tab PO Q3DAYS #0 10/02/12 07/06/20 History (MULTIVITAMIN) CALCIUM CARBONATE (Calcium) 600 mg PO BIDCC #0 10/02/12 07/06/20 History ascorbic acid (vitamin C) 500 mg PO Q3DAYS #0 10/02/12 07/06/20 History prednisone 15 mg PO QDAY #0 10/02/12 07/06/20 History prednisone 5 - 10 mg PO BID #45 10/08/12 07/06/20 Rx cefuroxime axetil 500 mg PO BID 02/22/20 07/06/20 History atorvastatin 20 mg tablet 20 mg PO DAILY 06/01/20 07/06/20 History calcium carbonate 500 mg calcium 500 mg PO DAILY 06/01/20 07/06/20 History (1,250 mg) tablet cholecalciferol (vitamin D3) 50 50 mcg PO DAILY 06/01/20 07/06/20 History mcg (2,000 unit) capsule levothyroxine 50 mcg tablet 50 mcg PO DAILY 06/01/20 07/06/20 History naphazo HCl 0.025 %-hyprome 0.2 drp OPHTHALMIC (EYE) 06/01/20 07/06/20 History %-ps 80 0.5 %-Zn sulf 0.25 % eye drops vitamin B complex 1 tab PO DAILY 06/01/20 07/06/20 History zinc 50 mg tablet 50 mg PO DAILY 06/01/20 07/06/20 History Allergies Allergy/AdvReac Type Severity Reaction Status Date / Time oxycodone Allergy Mild Rash on Verified 07/06/20 10:28 abdominal area ciprofloxacin Allergy Verified 07/06/20 10:28 Sulfa (Sulfonamide AdvReac Severe Vomiting Verified 07/06/20 10:28 Antibiotics) and Diarrhea Exam Vital Signs (past 8 hours): - 08/01/20 15:07 08/01/20 15:17 08/01/20 15:23 Temperature 97.8 F Pulse Rate 65 73 74 Respiratory Rate 20 24 22 Blood Pressure 153/73 H Pulse Oximetry 98 99 100 08/01/20 15:24 08/01/20 15:30 08/01/20 16:00 Temperature Pulse Rate 63 70 72 Respiratory Rate 17 17 14 Blood Pressure 150/77 H 157/75 H Pulse Oximetry 98 99 97 08/01/20 16:06 08/01/20 16:30 08/01/20 17:00 Temperature Pulse Rate 71 64 69 Respiratory Rate 22 15 20 Blood Pressure 144/78 H 145/77 H Pulse Oximetry 98 97 99 08/01/20 17:01 Temperature Pulse Rate 68 Respiratory Rate 19 Blood Pressure 169/78 H Pulse Oximetry 99 Oxygen Delivery Method Room Air Narrative Exam Narrative: Gen.: Alert and oriented x3 no apparent distress. HEENT: NCAT PERRLA tympanic membranes are clear nares are patent oral mucosa is moist no tonsillar hypertrophy neck is supple without lymphadenopathy no thyroid enlargement. Cardio: S1-S2 regular rate and rhythm no murmurs appreciated. Respiratory: Lungs are clear to auscultation no wheezes or crackles normal respiratory effort. Abdomen: Soft nontender no rebound or guarding no liver spleen enlargement no appreciable hernias Extremities: Full range of motion no appreciable weakness no cyanosis or edema. Neurologic: Patient's sensation is intact upper and lower extremities. Good strength. Patient is right handed. Cranial nerves 2-12 are intact. Objective Labs Result Diagrams: 08/01/20 15:11 08/01/20 15:11 Labs: Laboratory Results - last 24 hr 08/01/20 08/01/20 08/01/20 15:11 15:11 15:11 WBC 6.6 RBC 4.84 Hgb 14.8 Hct 45.5 MCV 94.1 MCH 30.5 MCHC 32.4 RDW 13.6 Plt Count 205 Neut % (Auto) 48.5 L Lymph % (Auto) 36.9 Johnson % (Auto) 10.3 Eos % (Auto) 2.9 Baso % (Auto) 1.4 Neut # (Auto) 3200 Lymph # (Auto) 2400 Johnson # (Auto) 700 Eos # (Auto) 200 Baso # (Auto) 100 PT 12.0 INR 1.0 APTT 35 Sodium 137 Potassium 4.1 Chloride 102 Carbon Dioxide 31 BUN 18 Creatinine 1.09 Estimated GFR > 60.0 BUN/Creatinine Ratio 16.5 Glucose 117 H Calcium 9.4 Total Bilirubin 0.4 AST 36 ALT 26 Alkaline Phosphatase 77 Total Creatine Kinase 59 CK-MB (CK-2) TNP CK-MB (CK-2) Rel Index TNP Troponin I < 0.012 NT-Pro-B Natriuret Pep 341 Total Protein 7.8 Albumin 4.0 Globulin 3.8 Albumin/Globulin Ratio 1.1 Lipase 183 SARS-CoV-2 (PCR) 08/01/20 15:20 WBC RBC Hgb Hct MCV MCH MCHC RDW Plt Count Neut % (Auto) Lymph % (Auto) Johnson % (Auto) Eos % (Auto) Baso % (Auto) Neut # (Auto) Lymph # (Auto) Johnson # (Auto) Eos # (Auto) Baso # (Auto) PT INR APTT Sodium Potassium Chloride Carbon Dioxide BUN Creatinine Estimated GFR BUN/Creatinine Ratio Glucose Calcium Total Bilirubin AST ALT Alkaline Phosphatase Total Creatine Kinase CK-MB (CK-2) CK-MB (CK-2) Rel Index Troponin I NT-Pro-B Natriuret Pep Total Protein Albumin Globulin Albumin/Globulin Ratio Lipase SARS-CoV-2 (PCR) Negative Assessment & Plan Assessment & Plan narrative: 75-year-old male with hyperlipidemia hypertension presents with left arm numbness and left facial numbness with difficulty with balance. Laboratory tests EKG are unremarkable at this point. Due to the concerning nature of his symptoms due to potential cerebrovascular accident or injury patient will be admitted to the hospital for further evaluation and workup he will be given an aspirin he will be continued on his statin will monitor closely is blood pressure. If blood pressure raises significantly will treat. It is a little elevated now but I would prefer to have a little high at this point until we know what is going on. Head CT imaging was reviewed which shows cerebrovascular changes consistent with his age. Will place him on telemetry monitoring he will have an MRI angiogram stroke protocol to rule out cerebrovascular insult or injury and proceed with carotid artery ultrasound if needed. Will repeat laboratory testing in the morning. He will have NIH stroke scale done Q shift and we will have Physical therapy and Occupational therapy meet with him. Hyperlipidemia. Patient is on atorvastatin 20 mg a day will continue his statin at this point as prevention for. Recent cholesterol testing looks like has been done so will hold off on that. Essential hypertension. Patient currently not on antihypertensive medication blood pressure is elevated will let it be a little bit high at this point till we can figure out and further understand what is going on cerebrovascular early. Hypothyroidism is on replacement with 50 mcg will continue the 50 mcg tablet. Rheumatoid arthritis. Looks like he has been on and off prednisone. Will continue to monitor his arthritis symptoms and hold off on medication. DVT prophylaxis with SCDs and Lovenox. Disposition and plan continue telemetry monitoring and night stroke scale aspirin statin. MRI angiogram stroke protocol tomorrow. Will consider adding an echocardiogram or other laboratory tests as needed
--- NOTE | 2020-08-01 18:35 | DI.MRI.S_ITS ---
PROCEDURE: MR STROKE Pre- and post-contrast brain MRI, non-contrast brain MR angiogram, pre- and postcontrast neck MR angiogram INDICATIONS: Dizziness gait disturbance TECHNIQUE: Brain: Noncontrast axial T1 spin echo, axial T2 fast spin echo, sagittal and axial FLAIR, coronal T2 fast spin echo, axial gradient echo, axial diffusion and ADC through the brain. After the administration of contrast, axial 3D VIBE of the cranial vasculature and brain. Brain MRA: Non-contrast 3-D time of flight MR angiogram, with multiple xrihsby-qdmtnmhxi-rcjibnmiba (MIP) reformats performed. Neck MRA: Axial and sagittal TruFISP through the neck. Coronal dynamic MR angiogram during administration of contrast in the arterial and venous phases, with 3-dimenstional vrdgvkz-euikevqpy-aeepfdwpvw (MIP) reformats constructed from subtraction images. COMPARISON: [facility], CT, CT HEAD/BRAIN WO CON, 08/01/2020, 15:36. FINDINGS: Image quality: Degraded by patient motion artifact. BRAIN: CSF spaces: Ventricles are normal in size and shape. Basal cisterns are patent. No extra-axial fluid collections. Brain: No intracranial bleeds or mass effects. Garza-white matter interface is normal. There is mild, diffuse cerebral volume loss. There are moxu-fz-jeiusykb periventricular and subcortical white matter chronic microvascular ischemic changes. Diffusion weighted images show no acute ischemic insults. Brainstem appears normal. Normal intravascular flow voids are present. Dural sinuses demonstrate normal postcontrast enhancement. No abnormal intracranial enhancement. Skull and face: Calvarial marrow signal is normal. Orbits appear normal. Sinuses: Sinuses and mastoids are clear. BRAIN MR ANGIOGRAM: Anterior circulation: Intracranial internal carotid arteries are normal in enhancement. Atherosclerotic irregularity noted in the cavernous and supraclinoid segments of the internal carotid arteries bilaterally which causes moderate stenosis of the right internal carotid artery and mild stenosis of the left internal carotid artery.. The flow within the paired anterior cerebral arteries is normal and symmetric. The flow within the middle cerebral arteries is normal and symmetric. The anterior communicating artery is seen. No stenoses, occlusions, or aneurysms. Posterior circulation: Visualized portion of the right vertebral artery is fully patent. There is diminished flow in the intracranial left vertebral artery due to proximal left vertebral artery high-grade stenosis. Normal flow noted in the basilar artery. Basilar artery appears fully patent. High-grade stenosis noted in the origin of the left posterior cerebral artery with very diminished flow in the P1 segment of the left vertebral artery due to the origin high-grade stenosis. High-grade stenosis noted in the distal P1 segment of the right posterior cerebral artery. No aneurysms. NECK MR ANGIOGRAM: Carotids: Great vessels demonstrate a conventional anatomy as they arise from the aortic arch. The origins of the common carotid arteries appear patent. The calibers and courses of both common carotid arteries are normal. Atherosclerotic irregularity noted in the origin/proximal internal carotid arteries bilaterally which causes less than 50% stenosis of the right internal carotid artery and 70 -75 % stenosis of the proximal left internal carotid artery. Posterior circulation: Patient is right vertebral artery dominant. Moderate stenosis noted in the origin of the right vertebral artery. High-grade stenosis noted in the origin of the left vertebral artery with very diminished flow in the left vertebral artery distal to the origin of the vessel. Multifocal high-grade stenoses noted in the V2, V3 and proximal V4 segments of the left vertebral artery. Miscellaneous: Subclavian arteries appear patent. Pre-contrast images through the neck show no soft tissue abnormalities. IMPRESSION: BRAIN MRI: 1. No acute intracranial disease process. 2. No areas of acute or chronic infarction. 3. Mild, diffuse cerebral volume loss. 4. Dkbv-ae-ttoatvqk periventricular and subcortical white matter chronic microvascular ischemic change. 5. No abnormal intracranial mass or mass effect. 6. No suspicious postcontrast enhancement. BRAIN MR ANGIOGRAM: 1. High-grade stenosis involving the origin of the left posterior cerebral artery with very diminished flow in the left posterior artery distal to the origin of the vessel. 2. Short segment, high-grade stenosis of the distal P1 segment of the right posterior cerebral artery. 3. Diminished flow in the V4 segment of the left vertebral artery secondary to proximal high-grade stenosis. 4. Moderate stenosis of the supraclinoid segment of the right vertebral artery. NECK MR ANGIOGRAM: 1. Approximately 70-75 % stenosis of the proximal left internal carotid artery. 2. Less than 50% stenosis of the origin of the right internal carotid artery. 3. High-grade stenosis of the origin of the left vertebral artery with very diminished flow distal to the origin of the vessel. Multifocal high-grade stenoses noted in the V2, V3 and V4 segments of the left vertebral artery. 4. Moderate stenosis of the origin of the right vertebral artery. Patient is right vertebral artery dominant. Dictated by: Ann Sinha MD, PhD on 08/02/2020 at 11:14 Approved by: Ann Sinha MD, PhD on 08/02/2020 at 11:30
--- NOTE | 2020-08-01 18:36 | PC.NURSE ---
Addendum entered by Darshana Fernández R.N. 08/01/20 21:28: Pt had relatively uneventful evenig. Denies discomfort. tele NSR per ICU staff. Refuses SCD @ this time IVF continue as per orders. Call light w/in reach, pt calls appropriate for needs. Continue w/plan of care. Original Note: Pt arrived from ER to RM 213 @ 1740, A/O, pleasant. Denies any discomfort upon admit. Tele placed as per orders, Showing NSR per ICU staff. IVF NS @ 100cc/hr infusing into LFA via pump w/o incidence. Pt & family oriented to room & call system. Call light w/in reach. Pt calls appropriately for needs.
[2020-08-01] MEDS: SODIUM CHLORIDE 0.9% 1,000 ML 100 ML IV (18:41)
--- NOTE | 2020-08-02 00:36 | PC.NURSE ---
2300 Received safe hand-off report. The patient is lying on his left side in bed, alert and oriented x4. He demonstrates no muscular weakness in all four extremities, and there is no speech impairment or droop seen. Total NIH = 0. He has a left forearm PIV that has NS infusing at 100mL/h. He is on room air, and telemetry monitoring shows NSR with 1st degree AV block. No s/sx of distress. Will continue to monitor.
[2020-08-02 04:10] VITALS: BP 151/76; PULSE 69; RESP 16; TEMP 36.6; O2SAT 95
[2020-08-02 06:22] LABS: Add Manual Diff / Slide Review NO; Basophils Absolute Auto 100 /uL (0-100); Basophils Percent Auto 1.3 % (0-2); Eosinophils Absolute Auto 300 /uL (0-450); Eosinophils Percent Auto 3.4 % (2-4); Hematocrit 44.7 % (41-53); Hemoglobin 14.9 g/dL (13.5-17.5); Lymphocytes Absolute Auto 2600 /uL (1100-4500); Lymphocytes Percent Auto 29.7 % (25-40); Mean Corpuscular HGB Conc 33.3 % (30-36); Mean Corpuscular Volume 93.1 fL (80-100); Monocytes Absolute Auto 900 /uL (0-900); Monocytes Percent Auto 10.3 % (3-14); Neutrophils Absolute Auto 4900 /uL (1500-7000); Neutrophils Percent Auto 55.3 % (50-75); Platelet Count 190 X10^3/uL (150-400); Red Cell Distribution Width 13.5 % (11.6-14.8); White Blood Cell Count 8.8 X10^3/uL (4.5-11.0)
[2020-08-02 06:31] LABS: BUN Creatinine Ratio 16.3 (6-22); Blood Urea Nitrogen 15 mg/dL (9-20); Calcium 8.7 mg/dL (8.4-10.2); Carbon Dioxide 31 mmol/L (22-32); Chloride 106 mmol/L (98-107); Estimated Glomerular Filt Rate > 60.0 mL/min (>60); Glucose 94 mg/dL (80-110); HEMOLYSIS < 15 (0-50); Potassium 3.9 mmol/L (3.4-5.1); Sodium 140 mmol/L (137-145)
[2020-08-02 07:40] VITALS: BP 134/78; PULSE 66; RESP 15; TEMP 36.6; O2SAT 96
--- NOTE | 2020-08-02 08:40 | P.PN_ITS ---
Subjective Subjective Date Patient Seen: 08/02/20 Time Patient Seen: 08:20 Interval history: Spent 40 minutes with patient's this morning Met with patient and reviewed ER note and Dr. Ar Parker as well as workup in the emergency room and subsequent vital signs except try. Patient states that since about midnight he has not had any of his symptoms which prompted his admission. The numbness and tingling in his left arm and left face have resolved. He felt very unsteady on his feet but is no longer feeling that way. He is tolerating p.o. without difficulty. He ate his entire breakfast. He denies headache. Reviewed his symptoms that prompted his evaluation in the ER and he states that he has had some dizziness which prompted a workup cardiac and did show some reversible ischemia he met with welding machine operator helper arc and was placed on a baby aspirin but he has not started that yet. He did not have any symptoms of chest pain. This episode was the worst of his symptoms. He has a history of rheumatoid arthritis but has been off methotrexate for about 6 months. Has been off prednisone as well and has been doing quite well. He sees Dr. campa [facility]. He lives in [place] alone. He has a daughter who lives very close by and is very attentive. Reviewed his past medical history medications allergies past surgical history Review of systems: Negative for headache Negative for neurologic symptoms Negative for chest pain or palpitations or lightheadedness or dizziness Patient has had nasal congestion and sneezing since February COVID test was negative Exam Vital Signs (past 8 hours): - 08/02/20 04:10 08/02/20 07:40 Temperature 97.9 F 97.8 F Pulse Rate 69 66 Respiratory Rate 16 15 Blood Pressure 151/76 H 134/78 Pulse Oximetry 95 96 Oxygen Delivery Method Room Air Oxygen Flow Rate 0 Narrative Exam Narrative: Very pleasant man alert and oriented x3 sitting in his hospital bed. Excellent historian HEENT: Unremarkable. No neurologic findings Neck: Supple without adenopathy Chest: Clear to auscultation without wheezes rhonchi or crackles Cor: Regular rate and rhythm without any murmur Extremities: No edema, pulses intact Abdomen: Positive bowel sounds, soft, nontender Neurologic exam nonfocal. Sensations intact to light touch bilateral upper and lower extremities as is motor strength. Cranial nerves 2-12 are intact. I did not stand him up. Objective Labs Result Diagrams: 08/02/20 06:04 08/02/20 06:04 Labs: Laboratory Results - last 24 hr 08/01/20 08/01/20 08/01/20 15:11 15:11 15:11 WBC 6.6 RBC 4.84 Hgb 14.8 Hct 45.5 MCV 94.1 MCH 30.5 MCHC 32.4 RDW 13.6 Plt Count 205 Neut % (Auto) 48.5 L Lymph % (Auto) 36.9 [place] % (Auto) 10.3 Eos % (Auto) 2.9 Baso % (Auto) 1.4 Neut # (Auto) 3200 Lymph # (Auto) 2400 [place] # (Auto) 700 Eos # (Auto) 200 Baso # (Auto) 100 PT 12.0 INR 1.0 APTT 35 Sodium 137 Potassium 4.1 Chloride 102 Carbon Dioxide 31 BUN 18 Creatinine 1.09 Estimated GFR > 60.0 BUN/Creatinine Ratio 16.5 Glucose 117 H Calcium 9.4 Total Bilirubin 0.4 AST 36 ALT 26 Alkaline Phosphatase 77 Total Creatine Kinase 59 CK-MB (CK-2) TNP CK-MB (CK-2) Rel Index TNP Troponin I < 0.012 NT-Pro-B Natriuret Pep 341 Total Protein 7.8 Albumin 4.0 Globulin 3.8 Albumin/Globulin Ratio 1.1 Lipase 183 SARS-CoV-2 (PCR) 08/01/20 08/02/20 08/02/20 15:20 06:04 06:04 WBC 8.8 RBC 4.80 Hgb 14.9 Hct 44.7 MCV 93.1 MCH 31.0 MCHC 33.3 RDW 13.5 Plt Count 190 Neut % (Auto) 55.3 Lymph % (Auto) 29.7 [place] % (Auto) 10.3 Eos % (Auto) 3.4 Baso % (Auto) 1.3 Neut # (Auto) 4900 Lymph # (Auto) 2600 [place] # (Auto) 900 Eos # (Auto) 300 Baso # (Auto) 100 PT INR APTT Sodium 140 Potassium 3.9 Chloride 106 Carbon Dioxide 31 BUN 15 Creatinine 0.92 Estimated GFR > 60.0 BUN/Creatinine Ratio 16.3 Glucose 94 Calcium 8.7 Total Bilirubin AST ALT Alkaline Phosphatase Total Creatine Kinase CK-MB (CK-2) CK-MB (CK-2) Rel Index Troponin I NT-Pro-B Natriuret Pep Total Protein Albumin Globulin Albumin/Globulin Ratio Lipase SARS-CoV-2 (PCR) Negative PFSH Medical History BPH NOS w/o ur obs/LUTS Elevated PSA Erectile dysfunction Osteoarthritis Rheumatoid arthritis Surgical History History of back surgery Family History Brother Hearing impaired Social History marital status: number of children: 1 household members: none occupational status: previously employed Smoking Status: Former smoker alcohol intake: current caffeine: Yes Assessment & Plan Assessment & Plan narrative: 75-year-old male with a history of hypothyroidism, rheumatoid arthritis, osteoarthritis and coronary artery disease presents with symptoms suggestive of TIA. His symptoms have completely resolved. We will await the MRI MRA stroke protocol Will get him up and ambulate him Will start a baby aspirin because he was not on this prior to this incident Will continue his outpatient medications Pending results of MRI MRA we may discharge to home today.
--- NOTE | 2020-08-02 08:41 | SLP.IPNOTE ---
Orders for Speech Therapy evaluation received, chart reviewed. Discussed with Nsg who reports NIH score of 0 over 2 Nsg shifts. Pt is communicating without difficulty, consumed breakfast without difficulty. Agreed to DC orders. ST available for recall to case should symptoms appear.
[2020-08-02 08:56] LABS: Creatine Kinase 53 U/L (55-170)
[2020-08-02 09:09] LABS: Troponin I < 0.012 ng/mL (0.01-0.034)
--- NOTE | 2020-08-02 09:30 | PT.IIE ---
Surgical History (Last Reviewed 07/06/20 @ 12:30 by Rachelle Yousif MD) History of back surgery Medical History (Last Reviewed 08/01/20 @ 15:34 by Guillermo Danielson DO) BPH NOS w/o ur obs/LUTS Elevated PSA Erectile dysfunction Osteoarthritis Rheumatoid arthritis Physical Therapy Inpatient Evaluation/Re-Eval M1 PT/OT-IP Prior Functional Status Start: 08/02/20 08:48 Freq: NEEDED Status: Active Protocol: Document 08/02/20 09:28 AW (Rec: 08/02/20 12:03 AW [id number]) Medical Review Prior Functional Status Medical History Reviewed Yes Communication WNL. Pt is an effective verbal communicator. He is [place] and typically wears bilateral hearing aids. Mobility and Gait Independent without device. Pt walks ~1.5 miles several times weekly and performs calisthenics and stretches daily. Activities of Daily Living and IADL's Independent with all ADL and IADL's. Pt is an active frontload driver . Social History Household Members none Living Arrangements House Number of Floors (Floors) One Floor Number of Stairs To Enter/Railing? 5 MICAELA with narrow bilateral rails. Home Environment High Toilet,Walk in Shower,Tub /Shower,Built-In Shower Seat Home Equipment Manual Wheelchair,Grab Bars Near Toilet,Grab Bars In Shower Employment Status Retired Additional Social History Comment Pt lives alone in [place]. 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 M2 PT-IP Current Condition Start: 08/02/20 08:48 Freq: NEEDED Status: Active Protocol: Document 08/02/20 09:28 AW (Rec: 08/02/20 12:03 AW [id number]) Physical Therapy Current Condition Current Condition Evaluation Date 08/02/20 Treatment Diagnosis LUE and facial numbness, possible TIA, impaired gait/ dynamic balance Onset Date 08/01/20 M3 PT-IP Subjective Start: 08/02/20 08:48 Freq: NEEDED Status: Active Protocol: Document 08/02/20 09:28 AW (Rec: 08/02/20 12:03 AW [id number]) Subjective Physical Therapy Visit Type Type Initial Evaluation Visit Start Time 09:07 Visit Stop Time 09:28 Total Visit Minutes 21 Notes BRAIN MR ANGIOGRAM: High- grade stenosis L PROJECT MANAGEMENT ADVISOR, distal P1 segment of R PROJECT MANAGEMENT ADVISOR NECK MR ANGIOGRAM: ~70-75 % stenosis of the proximal L ICA ; <50% stenosis of the origin of the R ICA Physical Therapy Visit Comments Patient Comments Pt is willing to participate with PT Patient Goals Resume normal activity Therapy Pain Assessment Pain When Pain Assessed During Mobility Pain Present Pain Present Denied Pain M4 PT-IP Mobility and Gait Start: 08/02/20 08:48 Freq: NEEDED Status: Active Protocol: Document 08/02/20 09:28 AW (Rec: 08/02/20 12:03 AW [id number]) PT-Bed Mobility Assessment Supine to Sit Supine to Sit Independent Scooting Scooting to Edge of Bed Independent PT-Transfer Assessment Sit to and From Stand Sit to and from Stand Independent Equipment Transfer Assistive Device None,Gait Belt Orthotic/Prosthetic Devices or Brace: No Transfers Transfer Destination Chair Transfer Technique Stand Step Pivot Transfer Ability Level of Assist Independent Comments Mobility Comments Pt was encountered lying in the bed. He completed all bed moblility independently and then ambulated around the unit to complete Functional Gait Assessment. On return to the room, he transferred to the chair without assist. Gait Assessment Gait Gait Assistance Required: Standby Assistance Distance (Feet) 300 Assistive Devices Assistive Device None,Gait Belt Orthotic/Prosthetic Devices or Brace: No Gait Deviations General Gait Pattern Decreased Feet Clearance, Flexed Trunk Factors Limiting Gait Function Factors Limiting Gait Function Poor Balance Comments Gait Comments Pt ambulated around the unit and completed FGA with score of 21/30. He had most difficulty with narrow base of support ambulation and also had notable loss of gait speed /path deviation with all head turns. Stair Climbing Assessment Evaluation Level of Assist On Stairs Independent Devices Stair Climbing Assistive Devices Right Railing Technique/Endurance Stair Climbing Direction Ascend and Descend Stair Climbing Technique Step Over Step Number of Steps Climbed 3 Query Text: Stair Climbing Set # Repetitions (reps) 1 PT-Balance Assessment Sitting Balance and Reactions Static Sitting Balance Ability Normal Dynamic Sitting Balance Ability Normal Standing Balance and Reactions Static Standing Balance Ability Good Dynamic Standing Balance Ability Good Device Used no AD Balance Tests Romberg WNL Tandem Standing needed assist to get into position and to hold Functional Assessments Functional Tests Functional Gait Assessment Other Functional Tests Performed Points deducted for head turns , step over obstacle, eyes closed, backward walking, and NBOS. M5 PT-IP Objective Assessments Start: 08/02/20 08:48 Freq: NEEDED Status: Active Protocol: Document 08/02/20 09:28 AW (Rec: 08/02/20 12:03 AW [id number]) Orientation Orientation/Cognition Level of Alertness Alert Orientation Name,Day of Week,Place, Situation Language Function Ability Hard of Hearing Safety Awareness Understands Safety Issues Gross Range of Motion Upper Extremity ROM Assessment Within Functional Limits Lower Extremity ROM Assessment Within Functional Limits Strength Upper Extremity Strength Assessment Within Functional Limits Lower Extremity Strength Assessment Within Functional Limits Comments Strength Comments BLE grossly 4+/5 Coordination Assessment Assessment Finger to Nose Test Minimal Impairment Coordination Comments missed target <1 cm with LUE Sensation Assessment Sensation Sensation Description Numbness,Tingling Comments Sensation Comments Numbness tingling LUE resolved per patient report but he continues to endorse numb/ tingling left face. Muscle Tone Muscle Tone WNL Yes Other Assessments Other Other Assessments Occulomotor and vestibular exam grossly normal. M6 PT-IP Treatment Start: 08/02/20 08:48 Freq: NEEDED Status: Active Protocol: Document 08/02/20 09:28 AW (Rec: 08/02/20 12:03 AW [id number]) Physical Therapy Treatment Education Education Provided Safety M7 PT-IP Assessment and Plan Start: 08/02/20 08:48 Freq: NEEDED Status: Active Protocol: Document 08/02/20 09:28 AW (Rec: 08/02/20 12:03 AW [id number]) PT Summary Assessment and Plan Potential Rehabilitation Potential Excellent Status of Condition at Evaluation Stable Summary Impairments Strength,Balance,Sensation, Gait Assessment Summary Antoine is a 75 yo man seen for PT evaluation with TIA-like symptoms of LUE and left face numbness. On exam, LUE numbness has been absent since last midnight but left face numbness persists intermittently. Pt completed all bed mobility and transfers independently but required SBA for ambulation without AD. He completed Functional Gait Assessment with a score of 21/ 30 which is below mean for age -matched peers (Herminio, 2007). Pt would benefit from outpatient PT to address dynamic balance concerns. Pt may also consider having a family member or someone else stay with him for a day or two in case symptoms evolve. Goals Gait Goal Independent Gait Distance 200 Other Goals - Pt to score 25/30 or greater on FGA. Frequency of Treatment Frequency Of Treatment Once a Day Treatment Plan Physical Therapy Treatment Plan Transfer Training,Gait Training,Therapeutic Exercise, Balance Retraining,Discharge Planning,Neuromuscular Re-ed, Coordination Retraining Recommendations To Nursing Amount of Assist Needed Standby Assistance Discharge Recommendations PT Discharge Recommendations Home,Home with Assistance, Outpatient PT Transportation Needs at Discharge Private Vehicle
[2020-08-02] MEDS: ENOXAPARIN 40 MG/0.4 ML SYRINGE SUBCUT (09:44)
[2020-08-02] MEDS: LEVOTHYROXINE 50 MCG TABLET PO (09:45)
[2020-08-02] MEDS: ASPIRIN EC 81 MG TABLET PO (09:45)
[2020-08-02] MEDS: ACETAMINOPHEN 325 MG TABLET 650 MG PO ×2 (09:46→17:31)
[2020-08-02 10:15] VITALS: O2SAT 95
--- NOTE | 2020-08-02 10:16 | PC.NURSE ---
Day shift: Pt off unit for MRI at approx 1020. Pt off tele now as well. Will place back on tele when Pt returns. Pts daughter in room for support.
--- NOTE | 2020-08-02 10:19 | CM.DANOTE ---
DCP: Case received, EMR reviewed and met with patient. Introduced self and role. Was able to meet with patient to obtain information regarding his baseline activity status prior to hospitalization, as well as his current living situation. DCP assessment completed with information currently available. Patient is a 75 year old male who admitted yesterday afternoon to the care of the hospitalist team. PCP: Dr. Solares. Payer: confirmed: Medicare/[employer]. Patient came to the hospital via private vehicle secondary to having some dizziness and left arm numbness. He is scheduled to have an MRI today. He also has P.T. orders. Met with patient in his room. He is alert and oriented, pleasant. Patient resides in [place], lives alone, approximately 11 years ago. He has a daughter, Rosa Razo, who lives in [place] as well. Patient is independent at baseline. He drives, uses no DME. Patient indicated that he has lived in [place] for approximately 21 years. P: Patient is ambulatory, he should be able to go home when medically stable. P.T. mentioned outpatient P.T. MRI is pending. DCP will continue to follow. Darling Parker RN/Truck Driver Rubbish Collector
--- NOTE | 2020-08-02 11:29 | PC.NURSE ---
Day shift: Pt back on AC unit at approx 1120. Pt back on tele at approx 1130. Pt stated that he tolerated the MRI well. Encouraged to drink extra fluids to help rid body of the contrast used in MRI.
[2020-08-02 11:30] VITALS: BP 137/73; PULSE 71; RESP 15; TEMP 36.5; O2SAT 96
--- NOTE | 2020-08-02 13:06 | PC.NURSE ---
Day shift: Per Dr Janelle scott to d/c tele at this time.
--- NOTE | 2020-08-02 13:20 | OT.IP.EVAL ---
Past Medical History (Last Reviewed 08/01/20 @ 15:34 by Guillermo Danielson DO) BPH NOS w/o ur obs/LUTS Elevated PSA Erectile dysfunction Osteoarthritis Rheumatoid arthritis Surgical History (Last Reviewed 07/06/20 @ 12:30 by Rachelle Yousif MD) History of back surgery Occupational Therapy Inpatient Evaluation/Re-Eval M1 PT/OT-IP Prior Functional Status Start: 08/02/20 13:24 Freq: NEEDED Status: Active Protocol: Document 08/02/20 13:20 [facility] (Rec: 08/02/20 13:48 [facility] [id number]) Medical Review Prior Functional Status Medical History Reviewed Yes Communication WNL. Pt is an effective verbal communicator. He is [place] and typically wears bilateral hearing aids. Mobility and Gait Independent without device. Pt walks ~1.5 miles several times weekly and performs calisthenics and stretches daily. Activities of Daily Living and IADL's Independent with all ADL and IADL's. Pt is an active garbage truck driver . Social History Household Members none Living Arrangements House Number of Floors (Floors) One Floor Number of Stairs To Enter/Railing? 5 MICAELA with narrow bilateral rails. Home Environment High Toilet,Walk in Shower,Tub /Shower,Built-In Shower Seat Home Equipment Manual Wheelchair,Grab Bars Near Toilet,Grab Bars In Shower Employment Status Retired Additional Social History Comment Pt lives alone in [place]. 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 M2 OT-IP Current Condition Start: 08/02/20 13:24 Freq: Status: Active Protocol: Document 08/02/20 13:20 [facility] (Rec: 08/02/20 13:48 [facility] [id number]) Occupational Therapy Current Condition Current Condition Evaluation Date 08/02/20 Treatment Diagnosis LUE numbness, decreased STM Diagnosis Onset Date 08/01/20 M3 OT- IP Subjective and Pain Start: 08/02/20 13:24 Freq: Status: Active Protocol: Document 08/02/20 13:20 [facility] (Rec: 08/02/20 13:48 [facility] [id number]) OT- Subjective Occupational Therapy Visit Type Type Initial Evaluation Visit Start Time 12:17 Visit Stop Time 13:20 Total Visit Minutes 63 Notes BRAIN MR ANGIOGRAM: High grade stenosis L INSTRUCTOR HAIRSPRING, distal P1 segment of R INSTRUCTOR [place]IRSPRING NECK MR ANGIOGRAM: ~70-75 % stenosis of the proximal L ICA ; <50% stenosis of the origin of the R ICA Occupational Therapy Visit Comments Patient Comments Pt agreed to do OT eval, pt's daughter present in the home. Patient/Caregiver Goals TO go home. OT Pain Assessment Pain When Pain Assessed At Rest Pain Present Pain Present Denied Pain M4 OT- IP ADL's Start: 08/02/20 13:24 Freq: Status: Active Protocol: Document 08/02/20 13:20 [facility] (Rec: 08/02/20 13:48 [facility] [id number]) OT GIT-Bzif-Hftoyrc General Evaluation Self-Feeding Ability Independent OT ADL-Grooming Comments OT Grooming Comments Not performed. OT ADL-Dressing General Eval Upper Body Dressing Ability Independent Lower Body Dressing Ability Standby Assistance Comments OT Dressing Comments Pt loss of balance while donning left leg into pants and needing CGA too regain balance. Pt states normally leans to the wall in order to get his pants on. Educated pt to sit for LB dressing needs to improve safety. OT ADL-Toileting General Evaluation Toileting Ability Standby Assistance Comments OT Toileting Comments Pt states has urination urgency and at times rushes to use the bathroom and has fallen in the past. Suggested that pt use disposable briefs to prevent pt from having to banerjee to the bathroom. In addition to sit down to urinate would be safer for the pt at this time. OT ADL-Bathing Comments OT Bathing Comments NOt performed. Suggested to use a shower chair at this time. M5 OT- IP IADL's Start: 08/02/20 13:24 Freq: Status: Active Protocol: Document 08/02/20 13:20 [facility] (Rec: 08/02/20 13:48 [facility] [id number]) OT-Instrumental Activities of Daily Living Home Safety Awareness Awareness of Need for Assistance at Home Decreased Awareness Medication Management Medication Management Comments Due to pt's decreased STM, would be best to have his daughter assist with his needs. Money Management Money Management Comments Due to pt's decreased STM, would be best to have his daughter /supervise and assist as needed. Meal Preparation Meal Preparation Comments Due to pt's decreased STM, would be best to have his daughter assist with his needs. Video Production Intern Video Production Intern Comments Due to pt's decreased STM, would be best to have his daughter assist with his needs. Driving Driving Concerns Identified Regarding Safety M6 OT- IP Functional Cognition Start: 08/02/20 13:24 Freq: Status: Active Protocol: Document 08/02/20 13:20 [facility] (Rec: 08/02/20 13:48 [facility] [id number]) Cognitive Factors Limiting Selfcare Function Cognitive Ability Level of Alertness Alert Patient Orientation Name,Month,Date,Year,Day of Week,Place,Situation Attention Span Ability Capable of Focused Attention, Capable of Sustained Attention Ability to Follow Commands Able to Follow One Step Commands Memory Description Short Term Impaired,Working Impaired Safety Awareness Underestimates Need for Assistance Problem Solving Ability Needs Assist to Identify Solutions Executive Function Ability Unable to Filter Distractions, Unable to Organize Plans, Unable to Remember Details Cognitive Tests SLUMS Pt scored 23/30 which implies mild cognitive deficits for pts level of education, a score of 27/30 is normal. Pt able to recall 11 animals in one minute, able to recall 3/5 words after time passed, and able to answer 2/4 questions right after paragraph read. Cognitive Comments Cognitive Assessment Comments Pt scored 175 seconds and MIN vc to get through the task which implies severe deficits for visual attention, task switching, mental flexibility, speed of processing, and executive function. It is suggested pt not to drive at this time. OT- Vision and Hearing OT- Hearing Assessment OT- Hearing Assessment WFL OT- Vision Assessment Visual Acuity Glasses All The Time M7 OT- IP Mobility and Balance Start: 08/02/20 13:24 Freq: Status: Active Protocol: Document 08/02/20 13:20 [facility] (Rec: 08/02/20 13:48 [facility] [id number]) OT- Bed Mobility Assessment Rolling Type of Rolling Roll to Left Level of Assistance Independent Supine to Sit Supine to Sit Assist Independent OT-Transfer Assessment Sit to and From Stand Sit to and from Stand Independent Transfers Transfer Ability Standby Assistance Technique Transfer Destination Bed,Chair,Toilet Devices Transfer Assistive Devices None Comments Mobility Comments distant SBA for mobility in the room OT- Balance Assessment Sitting Balance and Reactions Static Sitting Balance Ability Normal Dynamic Sitting Balance Ability Good Standing Balance and Reactions Static Standing Balance Ability Fair Dynamic Standing Balance Ability Poor Comments Other Balance Tests/Deviations/Treatment Pt lost his balance while : trying to stand and [place] his pants. M8 OT- IP Objective Assessments Start: 08/02/20 13:24 Freq: Status: Active Protocol: Document 08/02/20 13:20 [facility] (Rec: 08/02/20 13:48 [facility] [id number]) OT Gross Range of Motion Upper Extremity Range of Motion Assessment Right Impaired ROM Impairments RUE mildly decreased at end range of AROM. Pt's tends to have flexed posture of neck and back. Right shoulder more rounded than left side. OT Strength Comments Strength Comments BUE 4/5 OT- Coordination Assessment Upper Extremity Finger to Nose Test Within Functional Limits Comments Coordination Comments RUE 31.5 seconds and LUE 29.5 sec for 9 hole peg. OT-Muscle Tone Assessment Muscle Tone WNL No OT Sensation Assessment Comments Summary Comments Intact for light touch. Pt states has numbness on his left arm that comes and goes. M9 OT- IP Assessment and Plan Start: 08/02/20 13:24 Freq: Status: Active Protocol: Document 08/02/20 13:20 [facility] (Rec: 08/02/20 13:48 [facility] [id number]) OT Summary Assessment and Plan Potential Rehabilitation Potential Good Analytic Complexity at Evaluation Low Summary OT Impairments Strength,Balance,Functional Mobility,Dressing,Bathing, Activity Tolerance Progress Towards Goals Progressing Toward Goals,Slow Progress due to Cognition Assessment Summary Pt low complexity and main barriers are decreased STM, dynamic balance, fms, and would benefit from supervision for executive functions needs , meds, and finances due to decreased STM. Pt's daughter is very supportive and willing to stay with the pt to provide supervision and assist as needed. Pt would benefit from outpt therapy for balance and memory needs. Goals Dressing Goal Independent Bathing Goal Independent Shower Transfer Goal Independent OT-Other Goals Pt to be able to incorporate memory strategies daily for Adl and IADl needs. Days to Meet Goals 2 Frequency of Treatment Frequency Of Treatment Once a Day Treatment Plan OT Treatment Plan ADL Training,Functional Cognition Training,Functional Mobility,Patient/Family Education,Discharge Planning Other Treatment Recommendations and Next shower if still here Treatment Focus Discharge Recommendations OT Discharge Recommendations Home with Assistance, Outpatient PT Home Equipment Needs shower chair Transportation Needs at Discharge Private Vehicle
[2020-08-02 13:55] VITALS: O2SAT 96
[2020-08-02 15:24] VITALS: BP 128/71; PULSE 63; RESP 17; TEMP 36.2; O2SAT 98
--- NOTE | 2020-08-02 15:34 | DI.CT.S_ITS ---
PROCEDURE: CT ANGIO HEAD AND NECK INDICATIONS: Abnormal vascular findings on prior MR angiograms. TECHNIQUE: Pre-contrast 4.5 mm thick sections acquired from the foramen magnum to the vertex. After the administration of intravenous contrast, 1 mm thick sections acquired from the aortic arch through the [place]. Post-contrast 4.5 mm thick sections then re-acquired from the foramen magnum to the vertex. 3-dimensional leeroiq-dafpcbxpp-dbwhdsidte (MIP) and/or volume rendering reformats were acquired of the central intracranial vasculature and neck separately. COMPARISON: [facility], MR, MR STROKE, 08/02/2020, 10:30. [facility], CT, CT HEAD/BRAIN WO CON, 08/01/2020, 15:36. FINDINGS: Image quality: Excellent. BRAIN: CSF spaces: Ventricles are normal in size and shape. Basal cisterns are patent. No extra-axial fluid collections. Brain: No midline shift. No intracranial bleeds or masses. Garza-white matter interface appears intact. Skull and face: Calvarium and facial bones appear intact, without suspicious lesions. Orbits appear normal. Sinuses: Sinuses and mastoids are clear. HEAD CT ANGIOGRAPHY: Anterior circulation: Intracranial internal carotid arteries demonstrate atherosclerotic calcification and irregularity. There is at least 70% stenosis seen involving the right supraclinoid intracranial internal carotid artery. The flow within the paired anterior cerebral arteries is normal and symmetric. The flow within the middle cerebral arteries is normal and symmetric. The anterior communicating artery is seen. No aneurysms are seen. Posterior circulation: There is approximately 50% narrowing seen involving the left V4 segment. There is a normal appearing basilar artery. There is generalized reduced flow seen within both posterior cerebral arteries. On these images, no julia, hemodynamically significant stenosis is identified, however. No aneurysms are seen. NECK CT ANGIOGRAPHY: Carotid system: The great vessels demonstrate a conventional anatomy as they arise from the aortic arch. The origins of the common carotid arteries appear patent. The common carotid arteries demonstrate normal caliber and courses. The bifurcation regions demonstrate atherosclerotic irregularity and calcification. There is approximately 75% stenosis seen involving the left proximal internal carotid artery. There is approximately 50% stenosis seen involving the right proximal internal carotid artery. The more distal internal carotid arteries demonstrate normal course and caliber. Posterior circulation: There is high-grade stenosis (at least 80%) involving the left vertebral artery origin. Multiple stenosis can be seen involving the more distal left vertebral artery, at least 50%. There is approximately 30% stenosis seen involving the right vertebral artery origin. The more distal right vertebral artery is within normal limits. The right vertebral artery is dominant to the left. Soft tissues: Visualized neck soft tissues demonstrate no suspicious abnormalities. Bones: No suspicious bony lesions. Visualized cervical spine appears normally aligned. IMPRESSION: At least 70% stenosis seen involving the right supraclinoid intracranial internal carotid artery. There is generalized decreased flow within the posterior cerebral arteries, yet without a focal stenosis identified on these images. Approximately 50% stenosis seen involving the V4 segment of the left vertebral artery. Approximately 75% stenosis involving the proximal left internal carotid artery. Approximately 50% stenosis involving the right proximal internal carotid artery. High-grade stenosis (at least 80%) involving the left vertebral artery. Multiple stenosis of at least 50% can be seen throughout the left vertebral artery. There is a mild stenosis involving the origin of the right vertebral artery. Any quantitative measurements of stenosis were performed using NASCET criteria. Dictated by: Preston Cheung M.D. on 08/02/2020 at 17:18 Approved by: Preston Cheung M.D. on 08/02/2020 at 17:29
--- NOTE | 2020-08-02 17:29 | P.DS_ITS ---
History of Present Illness History of Present Illness Date Patient Seen: 08/02/20 Time Patient Seen: 17:29 Date of Onset of Symptoms: 08/01/20 Chief complaint: dizzy spell, weakness, left arm numbness Discharge Providers Provider Date of admission: 08/01/20 17:13 Discharge Date: 08/02/20 Primary care physician: Kami Solares MD Consults: 08/01/20 18:35 Consult to Discharge Planning Routine Comment: Consult to Occupational Therapy Evaluate & Treat Comment: Physician Instructions: Evaluate and treat Consult to Physical Therapy Evaluate & Treat Comment: Physician Instructions: Evaluate and Treat Consult to Speech Therapy Evaluate & Treat Comment: Physician Instructions: Evaluate and treat Discharge provider: Shanthi Luis MD Summary Hospital Course Discharge Diagnosis: TIA Hypothyroidism Hyperlipidemia Carotid stenosis 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 He underwent CT scan of the head without contrast that showed no acute stroke or intracranial abnormality but possible old lacunar infarcts. He was admitted to the hospital for further monitoring. He was placed on a baby aspirin a day. He previously had been on no aspirin therapy. His symptoms completely resolved. His blood pressure was normal at the time I saw him and he was symptom free. His exam was unremarkable. He then had a MRI MRA of the head neck which showed 70-75% stenosis of the left internal carotid artery as well as 50% stenosis of the right internal carotid artery. He had high-grade stenoses in the left vertebral artery and moderate stenosis in the right vertebral artery. He also had high-grade stenosis in the left posterior cerebral artery and high-grade stenosis in the right posterior cerebral artery. I discussed this with [facility] vascular surgery with her PA [employer]day school missionary Richelle Godinez. She also discussed with 1 of her physicians. Due to the concern of possible over read on the MRI MRA they recommended doing a CT angiogram of the head and neck. They feel that this is a more reliable test to look at stenosis of the arteries. I then discussed this with the patient and his daughter Rosa. The patient had become upset and agitated stating he was going to go home because he did not get any sleep last night. I discussed the findings on the CT scan I discussed the findings on the MRI and MRA and the recommendations from [facility] vascular surgery to proceed with the CT angiogram of the head neck. I discussed that my opinion was that continued hospitalization overnight was the safest option due to the unknown findings as well as his recent probable TIA. He agreed to do the CT scan tonight but was insistent on going home tonight. We discussed possibility of having a larger stroke. He was comfortable with taking that risk in going home and then following this up as an outpatient. He understands that this was not my 1st recommendation. However I feel that he is of sound mind to make decisions regarding his healthcare. He understands risk of progression of disease and having a significant CVA. He understands rationale for a baby aspirin in addition to his atorvastatin and his levothyroxine. He will contact our as our office in the morning to follow up with Dr. Solares. Pending the results of his CT scan he will go home on his outpatient medications as well as a baby aspirin daily and we will discuss with [facility] vascular surgery about the results of his CT once we receive the results. We also discussed his recent stress Mibi test that was performed and his appointment with Dr. Pa of Cardiology and the plan that he had recommended that he go on a baby aspirin. He is scheduled for a stress echo. Apparently a stress Mibi showed reversible ischemia. I reviewed his CK and troponin that was negative in the ER as well as this morning. I do not think that his symptoms were on a cardiac basis. Patient has had a longstanding symptoms of dizziness and I wonder if this is not related to his vertebral artery stenosis. Status at Discharge Cognitive/behavioral status at discharge: oriented Functional status at discharge: independent ambulation Overall status at discharge: patient is back to baseline Time Spent with Patient Time spent: Greater than 30 minutes Exam Vital Signs (past 8 hours): - 08/02/20 10:15 08/02/20 11:30 08/02/20 13:55 Temperature 97.7 F Pulse Rate 71 Respiratory Rate 15 Blood Pressure 137/73 Pulse Oximetry 95 96 96 08/02/20 15:24 Temperature 97.2 F L Pulse Rate 63 Respiratory Rate 17 Blood Pressure 128/71 Pulse Oximetry 98 Oxygen Delivery Method Room Air Oxygen Flow Rate 0 Narrative Exam Narrative: Blood pressures have been good. They have been the 120s to 130s over 70s. Heart rate has been in the 60s to 70s. He has been afebrile. O2 sat on room air is in the mid 90s. He is alert and oriented x3 and is calm. Otherwise exam is unchanged from earlier today. No focal neurologic findings Objective Labs Result Diagrams: 08/02/20 06:04 08/02/20 06:04 Labs: Laboratory Results - last 24 hr 08/02/20 08/02/20 08/02/20 06:04 06:04 06:04 WBC 8.8 RBC 4.80 Hgb 14.9 Hct 44.7 MCV 93.1 MCH 31.0 MCHC 33.3 RDW 13.5 Plt Count 190 Neut % (Auto) 55.3 Lymph % (Auto) 29.7 [place] % (Auto) 10.3 Eos % (Auto) 3.4 Baso % (Auto) 1.3 Neut # (Auto) 4900 Lymph # (Auto) 2600 [place] # (Auto) 900 Eos # (Auto) 300 Baso # (Auto) 100 Sodium 140 Potassium 3.9 Chloride 106 Carbon Dioxide 31 BUN 15 Creatinine 0.92 Estimated GFR > 60.0 BUN/Creatinine Ratio 16.3 Glucose 94 Calcium 8.7 Total Creatine Kinase 53 L CK-MB (CK-2) TNP CK-MB (CK-2) Rel Index TNP Troponin I < 0.012 [facility] Medical History BPH NOS w/o ur obs/LUTS Elevated PSA Erectile dysfunction Osteoarthritis Rheumatoid arthritis Surgical History History of back surgery Family History Brother Hearing impaired Social History marital status: number of children: 1 household members: none occupational status: previously employed Smoking Status: Former smoker alcohol intake: current caffeine: Yes Discharge Assessment & Plan Assessment and Plan Assessment: TIA Carotid artery stenosis Vertebral artery stenosis Cerebral artery stenosis Hyperlipidemia Hypothyroidism Rheumatoid arthritis without acute issues Possible coronary artery disease Plan of Treatment: CT angio head neck and pending results patient is deciding to go home against my recommendations. He will follow-up as outpatient with Dr. Solares We will discuss results of CT angio of the head neck with vascular surgery at [facility]. He will go home on outpatient levothyroxine, atorvastatin and will start on a baby aspirin daily He will return to the ER if symptoms worsen. Discharge Plan Discharge Plan Patient Disposition: Home Discharge orders & Medications Prescriptions: Continued ASPIRIN (Aspirin EC) 81 mg PO SEE INSTRUCTIONS Qty: 0 RF: 0 CA PANTOTHENATE/FOLIC ACID/VIT (MULTIVITAMIN) 1 tab PO 3XW Qty: 0 RF: 0 CALCIUM CARBONATE (Calcium) 600 mg PO BIDCC Qty: 0 RF: 0 ascorbic acid (vitamin C) 500 MG tablet 500 mg PO 3XW PRN (Reason: cold prevention) Qty: 0 RF: 0 cyanocobalamin (vitamin B-12) [Vitamin B-12] 1,000 mcg Tablet 1,000 mcg PO 3XW RF: 0 naphazoline 0.012 % Drops 1 - 2 drp OPHTHALMIC (EYE) QID PRN (Reason: Dry Eyes) RF: 0 levothyroxine 50 mcg tablet 50 mcg PO AC RF: 0 vitamin B complex Tablet 1 tab PO 3XW RF: 0 zinc Tablet,Chewable 0.5 tab PO 3XW RF: 0 atorvastatin 20 mg tablet 20 mg PO DAILY RF: 0 cholecalciferol (vitamin D3) 50 mcg (2,000 unit) capsule 50 mcg PO DAILY RF: 0 Follow up/Referrals: Kami Solares MD [Primary Care Provider] - Discharge Data Primary Care Provider: Kami Solares Attending Provider: Kami Solares
--- NOTE | 2020-08-10 15:46 | PC.NURSE ---
Late Entry; NS infusion initiated 08/01 at 18:41, stopped per MD order 08/02 at 08:19.
== END 2020-08-02 18:15 | disposition home or self-care (01) ==
LOC: ED 16:58 → AC 17:13
PROVIDERS: Family Medicine; Admitting Provider Family Medicine; Emergency Provider Emergency Medicine; PCP Student in an Organized Health Care Education/Training Program; Referring Provider Emergency Medicine; Visit Provider Student in an Organized Health Care Education/Training Program
DX: G45.9 Transient cerebral ischemic attack, unspecified (principal); R42 Dizziness and giddiness; R53.1 Weakness; E03.9 Hypothyroidism, unspecified; M06.9 Rheumatoid arthritis, unspecified; I10 Essential (primary) hypertension; I25.10 Atherosclerotic heart disease of native coronary artery without angina pectoris; E78.5 Hyperlipidemia, unspecified; Z20.822 Contact with and (suspected) exposure to COVID-19
CPT/HCPCS: 36415; 70450; 70496; 70498; 70548; 70553; 71045; 80048; 80053; 82550; 83690; 83880; 84484; 85025; 85610; 85730; 87635; 93005; 93010; 96360; 96361; 96372; 97161; 97165; 97530; 97535; 99284; C9803; G0378; J1650; Q9967

== ENCOUNTER → 2021-07-06 15:58 | Outpatient (CLI) | payer MEDICARE, OTHER, SELFPAY ==
[2020-08-01 18:33] VITALS: BMI 22.8
[2021-07-07 04:34] LABS: Hepatitis B Surf AB Quant <3.1 mIU/mL (Immunity>9.9)
[2021-07-07 17:27] LABS: Hepatitis B Surface Antigen NEGATIVE s/c (NEGATIVE)
[2021-07-08 15:47] LABS: QuantiFERON Mitogen Value >10.00 IU/mL (.); QuantiFERON Nil Value 0.02 IU/mL (.); QuantiFERON TB Gold Plus Negative (Negative); QuantiFERON TB1 Ag Value 0.02 IU/mL (.); QuantiFERON TB2 Ag Value 0.01 IU/mL (.)
== END ==
PROVIDERS: PCP Student in an Organized Health Care Education/Training Program; Referring Provider Internal Medicine; Visit Provider Internal Medicine
DX: Z11.59 Encounter for screening for other viral diseases (principal); Z11.1 Encounter for screening for respiratory tuberculosis; Z79.899 Other long term (current) drug therapy; M06.00 Rheumatoid arthritis without rheumatoid factor, unspecified site
CPT/HCPCS: 36415; 86480; 86706; 87340

== ENCOUNTER 2022-08-18 13:21 | Emergency (ER) | payer MEDICARE, OTHER, SELFPAY ==
[2020-08-01 18:33] VITALS: BMI 22.8
[2022-08-18] VITALS (19 sets, daily range): BP systolic 112–201; BP diastolic 57–88; PULSE 57–79; RESP 12–25; TEMP 36.4; O2SAT 95–100; BMI 24.1
[2022-08-18 14:07] LABS: Add Manual Diff / Slide Review NO; Basophils Absolute Auto 100 /uL (0-100); Basophils Percent Auto 1.2 % (0-2); Eosinophils Absolute Auto 200 /uL (0-450); Eosinophils Percent Auto 3.2 % (2-4); Hemoglobin 15.8 g/dL (13.5-17.5); Lymphocytes Absolute Auto 1800 /uL (1100-4500); Lymphocytes Percent Auto 24.4 % (25-40); Mean Corpuscular HGB Conc 32.9 % (30-36); Mean Corpuscular Hemoglobin 31.5 PG (26-34); Mean Corpuscular Volume 95.7 fL (80-100); Monocytes Absolute Auto 600 /uL (0-900); Neutrophils Absolute Auto 4800 /uL (1500-7000); Neutrophils Percent Auto 63.2 % (50-75); Platelet Count 140 X10^3/uL (150-400); Red Blood Cell Count 5.02 X10^6/uL (4.5-5.9); Red Cell Distribution Width 13.5 % (11.6-14.8); White Blood Cell Count 7.6 X10^3/uL (4.5-11.0)
[2022-08-18 14:11] LABS: Alanine Aminotransferase 34 IU/L (<50); Albumin 4.2 g/dL (3.5-5.0); Albumin Globulin Ratio 1.3 (1.0-2.8); Alkaline Phosphatase 52 U/L (38-126); Aspartate Aminotransferase 42 IU/L (17-59); BUN Creatinine Ratio 13.5 (6-22); Bilirubin Total 0.9 mg/dL (0.2-1.3); Blood Urea Nitrogen 14 mg/dL (9-20); Calcium 8.6 mg/dL (8.4-10.2); Carbon Dioxide 31 mmol/L (22-32); Chloride 101 mmol/L (98-107); Creatine Kinase 66 U/L (55-170); Estimated Glomerular Filt Rate > 60 mL/min (>60); Globulin 3.3 g/dL (1.7-4.1); Glucose 122 mg/dL (80-110); HEMOLYSIS 37 (0-50); Lipase 264 U/L (23-300); Potassium 3.9 mmol/L (3.4-5.1); Sodium 140 mmol/L (137-145); Total Protein 7.5 g/dL (6.3-8.2)
[2022-08-18 14:24] LABS: Troponin I < 0.012 ng/mL (0.01-0.034)
--- NOTE | 2022-08-18 15:13 | DI.CT.S_ITS ---
PROCEDURE: CT ABDOMEN PELVIS W CON INDICATIONS: IV contrast only/vomiting TECHNIQUE: After the administration of intravenous contrast, axial sections acquired from the lung bases to the pubic symphysis. Coronal and sagittal reformats were performed. For radiation dose reduction, the following was used: automated exposure control, adjustment of mA and/or kV according to patient size. COMPARISON: None. FINDINGS: Image quality: Good Lower chest: Incidentally noted 9 mm nodule at the right costophrenic angle. Scattered scarring and atelectasis also present. Another nodule is seen in the right middle lobe measuring 5 mm. Image 5/10, 20. Nonspecific minimal esophageal wall thickening in the distal aspect. Solid organs: Liver is unremarkable. Moderate degree of inflammatory stranding around the gallbladder. The cystic duct appears dilated. No pathologic dilation of the biliary tree or pancreatic duct. No splenomegaly. No adrenal nodules. No hydronephrosis. Nonobstructing bilateral renal calculi are present, measuring up to 1 cm on the left. Vessels and lymph nodes: No abdominal aortic aneurysm. The main portal vein is patent. There is no pathologic adenopathy by size criteria. Bowel and peritoneum: No bowel obstruction. No pathologic ascites. Suspected chronic diverticular disease, particularly of the sigmoid colon. Consider correlation with any history of colonoscopy. Body wall: Unremarkable Pelvis: Bladder is under distended. Prostate is not well evaluated on this study, overall unremarkable. Bones: No acute or suspicious osseous abnormality. There are degenerative changes. Left L5 laminotomy. IMPRESSION: No radiopaque gallstones, however there is moderate inflammatory changes of the gallbladder, as well as dilation of the cystic duct. Obstructing radiolucent stones is consideration. Consider ultrasound to assess for sonographic Simeon sign if there is concordant clinical concern for cholecystitis. Incidentally noted lung nodules measuring up to 9 mm. Consider follow-up CT chest in six months or sooner. Other findings as above. Dictated by: Neptali Gardner M.D. on 08/18/2022 at 16:00 Approved by: Neptali Gardner M.D. on 08/18/2022 at 16:05
--- NOTE | 2022-08-18 15:14 | ED.NAVMDI ---
HPI - Nausea/Vomiting/Diarrhea <Aakash Alvarez MD - Last Filed: 08/22/22 08:00> General Chief complaint: Nausea/Vomiting/Diarrhea Stated complaint: Nausea/vomiting, weakness [id number] (randomly) Time Seen by Provider: 08/18/22 14:47 Source: patient Mode of arrival: Ambulatory History of Present Illness HPI Narrative: Patient here with daughter complains of intermittent nausea and vomiting this month. Had episode earlier this month. Has been doing well until yesterday with vomiting again. Denies any abdominal pain. However patient states he is had a lot of burping and belching in his past month. This is new for him. Has mild headache because of what he feels as dehydration. No slurred speech facial droop. No numbness tingling or weakness. No difficulty walking. No dizziness. Patient denies any chest pain. Denies abdominal pain. Patient does have peripheral artery disease. Last MRI MRA was in June 2021 and there was no changes in his vessels according to patient and daughter. Denies any chest pain back pain abdominal pain denies any headache. No altered mental status. Fast exam is negative. Denies any palpitations. No black or bloody stools. Patient denies any surgical abdominal history. Not had endoscopy of the stomach. Is not on any antacids. No changes in health as far as medications or diet. Worse with standing up. Better with lying flat Related Data Home Medications Medication Instructions Recorded Confirmed ASPIRIN (Aspirin EC) 81 mg PO SEE INSTRUCTIONS ##0 10/02/12 08/01/20 CA PANTOTHENATE/FOLIC ACID/VIT 1 tab PO 3XW ##0 10/02/12 08/01/20 (MULTIVITAMIN) CALCIUM CARBONATE (Calcium) 600 mg PO BIDCC ##0 10/02/12 08/01/20 ascorbic acid (vitamin C) 500 mg 500 mg PO 3XW PRN cold prevention 10/02/12 08/01/20 tablet ##0 atorvastatin 20 mg tablet 20 mg PO DAILY 06/01/20 08/01/20 cholecalciferol (vitamin D3) 50 50 mcg PO DAILY 06/01/20 08/01/20 mcg (2,000 unit) capsule cyanocobalamin (vitamin B-12) 1,000 mcg PO 3XW 08/01/20 08/01/20 1,000 mcg tablet (Vitamin B-12) levothyroxine 50 mcg tablet 50 mcg PO AC 08/01/20 08/01/20 naphazoline 0.012 % eye drops 1 - 2 drp ophthalmic (eye) QID PRN 08/01/20 08/01/20 Dry Eyes vitamin B complex 1 tab PO 3XW 08/01/20 08/01/20 zinc 0.5 tab PO 3XW 08/01/20 08/01/20 Allergies Allergy/AdvReac Type Severity Reaction Status Date / Time oxycodone Allergy Mild Rash on Verified 08/18/22 13:40 abdominal area Sulfa (Sulfonamide AdvReac Severe Vomiting Verified 08/18/22 13:40 Antibiotics) and Diarrhea ciprofloxacin AdvReac Verified 08/18/22 13:40 gemifloxacin AdvReac Verified 08/18/22 13:40 levofloxacin AdvReac Verified 08/18/22 13:40 moxifloxacin AdvReac Verified 08/18/22 13:40 norfloxacin AdvReac Verified 08/18/22 13:40 ofloxacin AdvReac Verified 08/18/22 13:40 Review of Systems <Aakash Alvarez MD - Last Filed: 08/22/22 08:00> Review of Systems Narrative: GENERAL: negative chills, fatigue, malaise, fever, sweats. HEENT: negative sinus pain, ear pain, sore throat RESPIRATORY: negative dyspnea, cough CARDIOVASCULAR: negative chest pain, palpitations GASTROINTESTINAL: Positive nausea, vomiting, negative abdominal pain : negative dysuria, frequency, hematuria MUSCULOSKELETAL: negative muscle or bony pain SKIN: negative rash, skin lesions NEUROLOGIC: negative weakness, numbness, negative slurred speech negative dizziness negative altered mental status ROS Unobtainable: All systems reviewed & are unremarkable except as noted in HPI and below Patient History <Aakash Alvarez MD - Last Filed: 08/22/22 08:00> Medical History BPH NOS w/o ur obs/LUTS Elevated PSA Erectile dysfunction Osteoarthritis Rheumatoid arthritis Surgical History History of back surgery Family History Brother Hearing impaired Social History marital status: number of children: 1 household members: none occupational status: previously employed Smoking Status: Former smoker alcohol intake: current caffeine: Yes Smoking Status: Former smoker alcohol intake frequency: a few times a week Alcohol type: wine Substance Use Type: does not use Exam <Aakash Alvarez MD - Last Filed: 08/22/22 08:00> Narrative Exam Narrative: GENERAL: in no distress, not toxic not dyspneic HEAD: Normocephalic. EYES: Pupils equal round ENT: Mucous membranes moist. NECK: Trachea midline. CARDIOVASCULAR: Regular rate and rhythm without murmurs RESPIRATORY: Clear to auscultation. Breath sounds equal bilaterally. No wheezes, rales, or rhonchi. GASTROINTESTINAL: Abdomen soft, non-tender, no peritoneal signs, bowel sounds are present. No CVA tenderness, negative Simeon sign EXTREMITIES: No gross deformities. BACK: No flank tenderness. NEURO: AOx4. SKIN: Warm and dry PSYCH: Not anxious, is cooperative Initial Vital Signs Initial Vital Signs: Vital Signs Temperature 97.5 F L 08/18/22 13:34 Pulse Rate 66 08/18/22 13:34 Respiratory Rate 18 08/18/22 13:34 Blood Pressure 112/57 L 08/18/22 13:34 Pulse Oximetry 99 08/18/22 13:34 Oxygen Delivery Method 08/18/22 13:34 <Guillermo Danielson DO - Last Filed: 08/18/22 23:56> Initial Vital Signs Initial Vital Signs: Vital Signs Temperature 97.5 F L 08/18/22 13:34 Pulse Rate 66 08/18/22 13:34 Respiratory Rate 18 08/18/22 13:34 Blood Pressure 112/57 L 08/18/22 13:34 Pulse Oximetry 99 08/18/22 13:34 Oxygen Delivery Method 08/18/22 13:34 Course <Aakash Alvarez MD - Last Filed: 08/22/22 08:00> Orders Ordered: Discontinued Medications Sodium Chloride (Normal Saline 0.9%) 1,000 mls @ 1,000 mls/hr IV BOLUS ONE Stop: 08/18/22 16:12 Last Infusion: 08/18/22 16:54 Dose: 0 mls/hr Documented By: Admin: 08/18/22 15:22 Dose: 1,000 mls/hr Documented By: JASWANT Ondansetron HCl (Ondansetron 4 Mg/2 Ml Inj) 4 mg IV NOW PRN PRN Reason: Nausea And Vomiting Pantoprazole Sodium (Pantoprazole 40 Mg Vial) 40 mg IV NOW ONE Stop: 08/18/22 15:14 Last Admin: 08/18/22 15:22 Dose: 40 mg Documented By: JASWANT Vital Signs Vital signs: Vital Signs - 8 hr 08/18/22 16:39 08/18/22 15:58 08/18/22 15:58 Pulse Rate 61 Pulse Rate [Orthostatic Sitting] 72 Pulse Rate [Orthostatic Standing] 79 Respiratory Rate 21 Blood Pressure 174/79 H Blood Pressure [Orthostatic Sitting] 165/76 H Blood Pressure [Orthostatic Standing] 186/82 H Pulse Oximetry 98 08/18/22 16:00 08/18/22 16:00 08/18/22 16:30 Pulse Rate 62 Pulse Rate [Orthostatic Sitting] Pulse Rate [Orthostatic Standing] Respiratory Rate 12 Blood Pressure 155/75 H 167/75 H Blood Pressure [Orthostatic Sitting] Blood Pressure [Orthostatic Standing] Pulse Oximetry 99 08/18/22 16:30 08/18/22 16:32 08/18/22 16:33 Pulse Rate 62 64 Pulse Rate [Orthostatic Sitting] Pulse Rate [Orthostatic Standing] Respiratory Rate 22 22 Blood Pressure 165/76 H Blood Pressure [Orthostatic Sitting] Blood Pressure [Orthostatic Standing] Pulse Oximetry 97 99 08/18/22 16:35 08/18/22 16:36 08/18/22 17:00 Pulse Rate Pulse Rate [Orthostatic Sitting] Pulse Rate [Orthostatic Standing] Respiratory Rate Blood Pressure 199/88 H 186/82 H 168/79 H Blood Pressure [Orthostatic Sitting] Blood Pressure [Orthostatic Standing] Pulse Oximetry 08/18/22 17:00 08/18/22 17:28 08/18/22 17:28 Pulse Rate 64 57 L Pulse Rate [Orthostatic Sitting] Pulse Rate [Orthostatic Standing] Respiratory Rate 15 17 Blood Pressure 176/74 H Blood Pressure [Orthostatic Sitting] Blood Pressure [Orthostatic Standing] Pulse Oximetry 99 97 08/18/22 17:30 08/18/22 17:30 08/18/22 18:00 Pulse Rate 58 L 60 Pulse Rate [Orthostatic Sitting] Pulse Rate [Orthostatic Standing] Respiratory Rate 25 H 19 Blood Pressure 168/79 H Blood Pressure [Orthostatic Sitting] Blood Pressure [Orthostatic Standing] Pulse Oximetry 98 98 08/18/22 18:01 08/18/22 18:01 08/18/22 18:23 Pulse Rate 60 Pulse Rate [Orthostatic Sitting] Pulse Rate [Orthostatic Standing] Respiratory Rate 18 Blood Pressure 201/82 H 154/74 H Blood Pressure [Orthostatic Sitting] Blood Pressure [Orthostatic Standing] Pulse Oximetry 100 08/18/22 18:23 08/18/22 18:30 08/18/22 18:30 Pulse Rate 63 65 Pulse Rate [Orthostatic Sitting] Pulse Rate [Orthostatic Standing] Respiratory Rate 16 16 Blood Pressure 150/75 H Blood Pressure [Orthostatic Sitting] Blood Pressure [Orthostatic Standing] Pulse Oximetry 96 98 <Guillermo Danielson, DO - Last Filed: 08/18/22 23:56> Orders Ordered: Discontinued Medications Sodium Chloride (Normal Saline 0.9%) 1,000 mls @ 1,000 mls/hr IV BOLUS ONE Stop: 08/18/22 16:12 Last Infusion: 08/18/22 16:54 Dose: 0 mls/hr Documented By: Admin: 08/18/22 15:22 Dose: 1,000 mls/hr Documented By: JASWANT Ondansetron HCl (Ondansetron 4 Mg/2 Ml Inj) 4 mg IV NOW PRN PRN Reason: Nausea And Vomiting Pantoprazole Sodium (Pantoprazole 40 Mg Vial) 40 mg IV NOW ONE Stop: 08/18/22 15:14 Last Admin: 08/18/22 15:22 Dose: 40 mg Documented By: JASWANT Vital Signs Vital signs: Vital Signs - 8 hr 08/18/22 16:39 08/18/22 15:58 08/18/22 15:58 Pulse Rate 61 Pulse Rate [Orthostatic Sitting] 72 Pulse Rate [Orthostatic Standing] 79 Respiratory Rate 21 Blood Pressure 174/79 H Blood Pressure [Orthostatic Sitting] 165/76 H Blood Pressure [Orthostatic Standing] 186/82 H Pulse Oximetry 98 08/18/22 16:00 08/18/22 16:00 08/18/22 16:30 Pulse Rate 62 Pulse Rate [Orthostatic Sitting] Pulse Rate [Orthostatic Standing] Respiratory Rate 12 Blood Pressure 155/75 H 167/75 H Blood Pressure [Orthostatic Sitting] Blood Pressure [Orthostatic Standing] Pulse Oximetry 99 08/18/22 16:30 08/18/22 16:32 08/18/22 16:33 Pulse Rate 62 64 Pulse Rate [Orthostatic Sitting] Pulse Rate [Orthostatic Standing] Respiratory Rate 22 22 Blood Pressure 165/76 H Blood Pressure [Orthostatic Sitting] Blood Pressure [Orthostatic Standing] Pulse Oximetry 97 99 08/18/22 16:35 08/18/22 16:36 08/18/22 17:00 Pulse Rate Pulse Rate [Orthostatic Sitting] Pulse Rate [Orthostatic Standing] Respiratory Rate Blood Pressure 199/88 H 186/82 H 168/79 H Blood Pressure [Orthostatic Sitting] Blood Pressure [Orthostatic Standing] Pulse Oximetry 08/18/22 17:00 08/18/22 17:28 08/18/22 17:28 Pulse Rate 64 57 L Pulse Rate [Orthostatic Sitting] Pulse Rate [Orthostatic Standing] Respiratory Rate 15 17 Blood Pressure 176/74 H Blood Pressure [Orthostatic Sitting] Blood Pressure [Orthostatic Standing] Pulse Oximetry 99 97 08/18/22 17:30 08/18/22 17:30 08/18/22 18:00 Pulse Rate 58 L 60 Pulse Rate [Orthostatic Sitting] Pulse Rate [Orthostatic Standing] Respiratory Rate 25 H 19 Blood Pressure 168/79 H Blood Pressure [Orthostatic Sitting] Blood Pressure [Orthostatic Standing] Pulse Oximetry 98 98 08/18/22 18:01 08/18/22 18:01 08/18/22 18:23 Pulse Rate 60 Pulse Rate [Orthostatic Sitting] Pulse Rate [Orthostatic Standing] Respiratory Rate 18 Blood Pressure 201/82 H 154/74 H Blood Pressure [Orthostatic Sitting] Blood Pressure [Orthostatic Standing] Pulse Oximetry 100 08/18/22 18:23 08/18/22 18:30 08/18/22 18:30 Pulse Rate 63 65 Pulse Rate [Orthostatic Sitting] Pulse Rate [Orthostatic Standing] Respiratory Rate 16 16 Blood Pressure 150/75 H Blood Pressure [Orthostatic Sitting] Blood Pressure [Orthostatic Standing] Pulse Oximetry 96 98 MDM - Nausea/Vomiting/Diarrhea <Aakash Alvarez MD - Last Filed: 08/22/22 08:00> Lab Data 08/18/22 13:46 08/18/22 13:46 Labs: Lab Results 08/18/22 08/18/22 Range/Units 13:46 13:46 WBC 7.6 (4.5-11.0) X10^3/uL RBC 5.02 (4.5-5.9) X10^6/uL Hgb 15.8 (13.5-17.5) g/dL Hct 48.0 (41-53) % MCV 95.7 (80-100) fL MCH 31.5 (26-34) PG MCHC 32.9 (30-36) % RDW 13.5 (11.6-14.8) % Plt Count 140 L (150-400) X10^3/uL Neut % (Auto) 63.2 (50-75) % Lymph % (Auto) 24.4 L (25-40) % Mclean % (Auto) 8.0 (3-14) % Eos % (Auto) 3.2 (2-4) % Baso % (Auto) 1.2 (0-2) % Neut # (Auto) 4800 (4481-2493) /uL Lymph # (Auto) 1800 (9982-9174) /uL Mclean # (Auto) 600 (0-900) /uL Eos # (Auto) 200 (0-450) /uL Baso # (Auto) 100 (0-100) /uL Sodium 140 (137-145) mmol/L Potassium 3.9 (3.4-5.1) mmol/L Chloride 101 (98-107) mmol/L Carbon Dioxide 31 (22-32) mmol/L BUN 14 (9-20) mg/dL Creatinine 1.04 (0.66-1.25) mg/dL Estimated GFR > 60 (>60) mL/min BUN/Creatinine Ratio 13.5 (6-22) Glucose 122 H (80-110) mg/dL Calcium 8.6 (8.4-10.2) mg/dL Total Bilirubin 0.9 (0.2-1.3) mg/dL AST 42 (17-59) IU/L ALT 34 (<50) IU/L Alkaline Phosphatase 52 (38-126) U/L Total Creatine Kinase 66 (55-170) U/L CK-MB (CK-2) TNP CK-MB (CK-2) Rel Index TNP Troponin I < 0.012 (0.01-0.034) ng/mL Total Protein 7.5 (6.3-8.2) g/dL Albumin 4.2 (3.5-5.0) g/dL Globulin 3.3 (1.7-4.1) g/dL Albumin/Globulin Ratio 1.3 (1.0-2.8) Lipase 264 (23-300) U/L Urine Dip Bedside Urine Glucose Negative Bedside Urine Bilirubin - Negative Bedside Urine Ketone - Negative Urine Specific [place] 1.010 Bedside Urine Occult Blood - Negative Bedside Urine pH 7.0 Bedside Urine Protein - Negative Bedside Urine Urobilinogen - Negative Bedside Urine Nitrite - Negative Bedside Urine Leukocytes - Negative Esterase Imaging Data CT scan - abdomen/pelvis: Radiologist's Impression: [address] [address] [address] Scan Report Signed Patient: Samuel Manning MR#: [id number] : 1945 Acct:[id number] Age/Sex: 77 / M Date of Service: 08/18/22 Loc: ED Accession Number: [id number] ?? Procedure: CT abdomen pelvis w con Ordering Provider: Aakash Alvarez MD PROCEDURE:? CT ABDOMEN PELVIS W CON ? INDICATIONS:? IV contrast only/vomiting ? TECHNIQUE:? After the administration of intravenous contrast, axial sections acquired from the lung bases to the pubic symphysis.? Coronal and sagittal reformats were performed.? For radiation dose reduction, the following was used:? automated exposure control, adjustment of mA and/or kV according to patient size.? ? COMPARISON:? None. ? FINDINGS:? Image quality:? Good ? Lower chest:? Incidentally noted 9 mm nodule at the right costophrenic angle.? Scattered scarring and atelectasis also present.? Another nodule is seen in the right middle lobe measuring 5 mm.? Image . Nonspecific minimal esophageal wall thickening in the distal aspect.? ? Solid organs:? Liver is unremarkable.? Moderate degree of inflammatory stranding around the gallbladder.? The cystic duct appears dilated.? No pathologic dilation of the biliary tree or pancreatic duct.? No splenomegaly.? No adrenal nodules.? No hydronephrosis.? Nonobstructing bilateral renal calculi are present, measuring up to 1 cm on the left. ? Vessels and lymph nodes:? No abdominal aortic aneurysm.? The main portal vein is patent.? There is no pathologic adenopathy by size criteria. ? Bowel and peritoneum:? No bowel obstruction.? No pathologic ascites.? Suspected chronic diverticular disease, particularly of the sigmoid colon.? Consider correlation with any history of colonoscopy. ? Body wall:? Unremarkable ? Pelvis:? Bladder is under distended.? Prostate is not well evaluated on this study, overall unremarkable. ? Bones:? No acute or suspicious osseous abnormality.? There are degenerative changes.? Left L5 laminotomy. ? IMPRESSION:? No radiopaque gallstones, however there is moderate inflammatory changes of the gallbladder, as well as dilation of the cystic duct.? Obstructing radiolucent stones is consideration.? Consider ultrasound to assess for sonographic Simeon sign if there is concordant clinical concern for cholecystitis. ? Incidentally noted lung nodules measuring up to 9 mm.? Consider follow-up CT chest in six months or sooner. ? Other findings as above. ? ? Dictated by: Neptali Gardner M.D. on 08/18/2022 at 16:00 ? ? Approved by: Neptali Gardner M.D. on 08/18/2022 at 16:05 ? [facility] Narrative Medical decision making narrative: Patient here with daughter complains of intermittent nausea and vomiting this month. Had episode earlier this month. Has been doing well until yesterday with vomiting again. Denies any abdominal pain. However patient states he is had a lot of burping and belching in his past month. This is new for him. Has mild headache because of what he feels as dehydration. No slurred speech facial droop. No numbness tingling or weakness. No difficulty walking. No dizziness. Patient denies any chest pain. Denies abdominal pain. Patient does have peripheral artery disease. Last MRI MRA was in June 2021 and there was no changes in his vessels according to patient and daughter. Denies any chest pain back pain abdominal pain denies any headache. No altered mental status. Fast exam is negative After history and exam CBC CMP troponin EKGs CT abdomen pelvis Zofran Protonix normal saline have been ordered [facility] CC: Nausea vomiting/reflux Complicating co-morbidities: History of peripheral artery disease, history of TIA Data collected from: Patient and daughter Medical records reviewed: No previous visits here for this complaint Differential considered: Includes but not limited to TIA/non-STEMI/acid reflux/gastritis/pancreatitis Exam documented above, pertinent findings include: Nontender abdomen Lab Test results independently reviewed as above. Pertinent findings: White cell count 7.6 hemoglobin 15.8 hematocrit 48 platelets a 140, sodium 140 potassium 3.9 GFR greater than 60 AST 42 ALT 34 total bilirubin 0.9, glucose 122 Independently reviewed EKG as above normal sinus rhythm normal EKG rate [address] elevation or depression Imaging studies independently reviewed: CT abdomen pelvis Consultations: Treatments: Re-evaluations: 6:[address] Danielson, ultrasounds pending. Disposition likely discharge home Discussion: Diagnosis: <Guillermo Danielson DO - Last Filed: 08/18/22 23:56> Lab Data Labs: Lab Results 08/18/22 08/18/22 Range/Units 13:46 13:46 WBC 7.6 (4.5-11.0) X10^3/uL RBC 5.02 (4.5-5.9) X10^6/uL Hgb 15.8 (13.5-17.5) g/dL Hct 48.0 (41-53) % MCV 95.7 (80-100) fL MCH 31.5 (26-34) PG MCHC 32.9 (30-36) % RDW 13.5 (11.6-14.8) % Plt Count 140 L (150-400) X10^3/uL Neut % (Auto) 63.2 (50-75) % Lymph % (Auto) 24.4 L (25-40) % Mclean % (Auto) 8.0 (3-14) % Eos % (Auto) 3.2 (2-4) % Baso % (Auto) 1.2 (0-2) % Neut # (Auto) 4800 (6349-5778) /uL Lymph # (Auto) 1800 (3352-0387) /uL Mclean # (Auto) 600 (0-900) /uL Eos # (Auto) 200 (0-450) /uL Baso # (Auto) 100 (0-100) /uL Sodium 140 (137-145) mmol/L Potassium 3.9 (3.4-5.1) mmol/L Chloride 101 (98-107) mmol/L Carbon Dioxide 31 (22-32) mmol/L BUN 14 (9-20) mg/dL Creatinine 1.04 (0.66-1.25) mg/dL Estimated GFR > 60 (>60) mL/min BUN/Creatinine Ratio 13.5 (6-22) Glucose 122 H (80-110) mg/dL Calcium 8.6 (8.4-10.2) mg/dL Total Bilirubin 0.9 (0.2-1.3) mg/dL AST 42 (17-59) IU/L ALT 34 (<50) IU/L Alkaline Phosphatase 52 (38-126) U/L Total Creatine Kinase 66 (55-170) U/L CK-MB (CK-2) TNP CK-MB (CK-2) Rel Index TNP Troponin I < 0.012 (0.01-0.034) ng/mL Total Protein 7.5 (6.3-8.2) g/dL Albumin 4.2 (3.5-5.0) g/dL Globulin 3.3 (1.7-4.1) g/dL Albumin/Globulin Ratio 1.3 (1.0-2.8) Lipase 264 (23-300) U/L Urine Dip Bedside Urine Glucose Negative Bedside Urine Bilirubin - Negative Bedside Urine Ketone - Negative Urine Specific [place] 1.010 Bedside Urine Occult Blood - Negative Bedside Urine pH 7.0 Bedside Urine Protein - Negative Bedside Urine Urobilinogen - Negative Bedside Urine Nitrite - Negative Bedside Urine Leukocytes - Negative Esterase Imaging Data US - abdomen: Radiologist's Impression: PROCEDURE:? US ABDOMEN COMPLETE ? INDICATIONS:? NAUSEA VOMITING/ATTENTION TO GALLBLADDER ? TECHNIQUE:? Real-time scanning was performed of the abdominal and retroperitoneal organs, with image documentation.? ? COMPARISON:? [facility], CT, CT ABDOMEN PELVIS W [facility], 08/18/2022, 15:37. ? FINDINGS:? ? Liver:? Liver is normal in size and homogeneous in echotexture.? ? Gallbladder:? No findings of gallstones or sludge are seen.? The gallbladder wall is thickened at 6-7 mm.? There is seen pericholecystic fluid.? The sonographic Simeon sign is negative.? ? Biliary ducts:? Intrahepatic bile ducts are non-dilated.? Extrahepatic bile duct caliber measures 5 mm.? Normal is 6-7 mm or less in diameter, or 10 mm or less post-cholecystectomy.? ? Pancreas:? Visualized portions of the pancreas are sonographically normal.? ? Spleen:? Spleen is normal in size and homogeneous in echotexture.? ? Kidneys:? Right kidney measures 10 cm long; left kidney measures 8.8 cm long.? No hydronephrosis or nephrolithiasis.? No solid masses.? The kidneys demonstrate an irregular, lobulated appearance.? Shadowing foci can be seen within the kidneys, measuring up to 12 mm on the left and up to 7 mm on the right. ? Aorta:? Visualized aorta is normal in caliber at less than 3 cm.? ? Iliacs:? Proximal common iliac arteries are normal in caliber at less than 2.5 cm.? ? IVC:? Intrahepatic inferior vena cava is patent.? ? Miscellaneous:? No free abdominal fluid.? ? ? IMPRESSION:? Abnormal gallbladder, with gallbladder wall thickening and pericholecystic fluid.? No additional sonographic signs of cholecystitis are seen. ? No biliary dilatation. ? Lobulated appearing kidneys, with nonobstructing stones seen.? The kidney stones are much better seen on the accompanying CT examination. [facility] Narrative Medical decision making narrative: Patient here with daughter complains of intermittent nausea and vomiting this month. Had episode earlier this month. Has been doing well until yesterday with vomiting again. Denies any abdominal pain. However patient states he is had a lot of burping and belching in his past month. This is new for him. Has mild headache because of what he feels as dehydration. No slurred speech facial droop. No numbness tingling or weakness. No difficulty walking. No dizziness. Patient denies any chest pain. Denies abdominal pain. Patient does have peripheral artery disease. Last MRI MRA was in June 2021 and there was no changes in his vessels according to patient and daughter. Denies any chest pain back pain abdominal pain denies any headache. No altered mental status. Fast exam is negative After history and exam CBC CMP troponin EKGs CT abdomen pelvis Zofran Protonix normal saline have been ordered [facility] CC: Nausea vomiting/reflux Complicating co-morbidities: History of peripheral artery disease, history of TIA Data collected from: Patient and daughter Medical records reviewed: No previous visits here for this complaint Differential considered: Includes but not limited to TIA/non-STEMI/acid reflux/gastritis/pancreatitis Exam documented above, pertinent findings include: Nontender abdomen Lab Test results independently reviewed as above. Pertinent findings: White cell count 7.6 hemoglobin 15.8 hematocrit 48 platelets a 140, sodium 140 potassium 3.9 GFR greater than 60 AST 42 ALT 34 total bilirubin 0.9, glucose 122 Independently reviewed EKG as above normal sinus rhythm normal EKG rate [address] elevation or depression Imaging studies independently reviewed: CT abdomen pelvis Consultations: Treatments: Re-evaluations: 6:[address] Danielson, ultrasounds pending. Disposition likely discharge home Discussion: Diagnosis: Dr danielson: Received turned over. Reviewed patient's history and physical and workup up to this point. For my own independent exam. Patient's ultrasound does show thickening of the gallbladder wall but no other indication of acute cholecystitis. Patient does not have any right upper quadrant tenderness. His LFTs are unremarkable. Had a long discussion with the patient and family at bedside. We discussed his workup to this point. He acknowledged the lack of a definitive diagnosis of his discomfort but states he is feeling better. Plan to be is to hold on further workup for now. He was given information that he could follow-up with general surgery to discuss the findings of the ultrasound and his gallbladder and also potentially to discuss an upper endoscopy if his symptoms return. He was given return precautions. He expressed understanding and agreement Discharge Plan Departure Patient Disposition: Home Clinical Impression: Vomiting Instructions: DI for Nausea -- Adult, DI for Vomiting -- Adult Activity Restrictions/Additional Instructions: I do recommend that you continue to take all of your medications as directed. I do recommend you contact your primary doctor for follow-up. Use the nausea medication that you have at home as needed. You can consider contacting the general surgery department at the number provided below. Return to the emergency department for any new or worsening symptoms. Prescriptions: No Action ASPIRIN (Aspirin EC) 81 mg PO SEE INSTRUCTIONS Qty: 0 Rx Instructions: Patient has not started taking this CA PANTOTHENATE/FOLIC ACID/VIT (MULTIVITAMIN) 1 tab PO 3XW Qty: 0 CALCIUM CARBONATE (Calcium) 600 mg PO BIDCC Qty: 0 ascorbic acid (vitamin C) 500 MG tablet 500 mg PO 3XW PRN (Reason: cold prevention) Qty: 0 cyanocobalamin (vitamin B-12) [Vitamin B-12] 1,000 mcg Tablet 1,000 mcg PO 3XW naphazoline 0.012 % Drops 1 - 2 drp OPHTHALMIC (EYE) QID PRN (Reason: Dry Eyes) levothyroxine 50 mcg tablet 50 mcg PO AC Rx Instructions: Take 30min prior to breakfast vitamin B complex Tablet 1 tab PO 3XW Rx Instructions: 500mg of B3 zinc Tablet,Chewable 0.5 tab PO 3XW Rx Instructions: Take 6mg (0.5 tab of 12mg) atorvastatin 20 mg tablet 20 mg PO DAILY cholecalciferol (vitamin D3) 50 mcg (2,000 unit) capsule 50 mcg PO DAILY Referrals: Rimma Antoine MD [Physician] - Miscellaneous,DoctorMD [Primary Care Provider] - Stand Alone Forms: Patient Portal/API
[2022-08-18] MEDS: PANTOPRAZOLE 40 MG VIAL IV (15:22)
[2022-08-18] MEDS: SODIUM CHLORIDE 0.9% 1,000 ML 1000 ML IV (15:22)
--- NOTE | 2022-08-18 16:39 | DI.US.S_ITS ---
PROCEDURE: US ABDOMEN COMPLETE INDICATIONS: NAUSEA VOMITING/ATTENTION TO GALLBLADDER TECHNIQUE: Real-time scanning was performed of the abdominal and retroperitoneal organs, with image documentation. COMPARISON: [facility], CT, CT ABDOMEN PELVIS W CON, 08/18/2022, 15:37. FINDINGS: Liver: Liver is normal in size and homogeneous in echotexture. Gallbladder: No findings of gallstones or sludge are seen. The gallbladder wall is thickened at 6-7 mm. There is seen pericholecystic fluid. The sonographic Simeon sign is negative. Biliary ducts: Intrahepatic bile ducts are non-dilated. Extrahepatic bile duct caliber measures 5 mm. Normal is 6-7 mm or less in diameter, or 10 mm or less post-cholecystectomy. Pancreas: Visualized portions of the pancreas are sonographically normal. Spleen: Spleen is normal in size and homogeneous in echotexture. Kidneys: Right kidney measures 10 cm long; left kidney measures 8.8 cm long. No hydronephrosis or nephrolithiasis. No solid masses. The kidneys demonstrate an irregular, lobulated appearance. Shadowing foci can be seen within the kidneys, measuring up to 12 mm on the left and up to 7 mm on the right. Aorta: Visualized aorta is normal in caliber at less than 3 cm. Iliacs: Proximal common iliac arteries are normal in caliber at less than 2.5 cm. IVC: Intrahepatic inferior vena cava is patent. Miscellaneous: No free abdominal fluid. IMPRESSION: Abnormal gallbladder, with gallbladder wall thickening and pericholecystic fluid. No additional sonographic signs of cholecystitis are seen. No biliary dilatation. Lobulated appearing kidneys, with nonobstructing stones seen. The kidney stones are much better seen on the accompanying CT examination. Dictated by: Preston Cheung M.D. on 08/18/2022 at 17:30 Approved by: Preston Cheung M.D. on 08/18/2022 at 17:32
--- NOTE | 2022-08-18 18:17 | PC.NURSE ---
PT reports intermittent nausea/vomitting over the past 3 weeks. States it it only happens when he is standing up and walking around. Rest and lying down resolve symptoms.
== END 2022-08-18 19:02 | disposition home or self-care (01) ==
PROVIDERS: Emergency Medicine; Emergency Provider Emergency Medicine
DX: R11.2 Nausea with vomiting, unspecified (principal)
CPT/HCPCS: 36415; 74177; 76700; 80053; 81003; 82550; 83690; 84484; 85025; 93005; 96361; 96374; 99284; C9113; Q9967

== ENCOUNTER 2022-09-02 16:05 | Emergency (ER) | payer MEDICARE, OTHER, SELFPAY ==
[2020-08-01 18:33] VITALS: BMI 22.8
[2022-09-02] VITALS (8 sets, daily range): BP systolic 139–164; BP diastolic 63–77; PULSE 60–69; RESP 16–20; TEMP 36.8; O2SAT 96–100; BMI 24.1
--- NOTE | 2022-09-02 16:45 | ED_ITS ---
HPI - Nausea/Vomiting/Diarrhea <Mariola Mcdaniel [facility] - Last Filed: 09/02/22 19:10> General Chief complaint: Nausea/Vomiting/Diarrhea Stated complaint: V/D Time Seen by Provider: 09/02/22 16:27 Source: patient and family Mode of arrival: Ambulatory History of Present Illness HPI Narrative: This is a 77-year-old male who presents to the emergency department complaining of episodes of vomiting today, nausea, diarrhea/loose stool without fever, chills, respiratory illness, chest pain, shortness of breath or other symptom. He states that he was here in the emergency department not long ago. On chart review it appears that he was in the emergency department on 08/18/2022 for similar symptoms. Denies abdominal pain, endorses burping and belching frequently recently and this is new. Denies headache, denies numbness or tingling, denies week numbness or dizziness. He has a history of peripheral artery disease, MRI MRA was in June 2021 in there changes to the vessels. Denies chest pain, back pain, abdominal pain, headache, altered mentation, palpitations, denies blood in his emesis or his stools. Denies history of abdominal surgery, has not had GI endoscopy but has a referral to [facility] gastroenterology pending from his PCP Dr. Patterson. Patient endorses his pain is worse when standing up, better when lying flat, in the emergency department he had a CT abdomen pelvis with contrast showing lung nodules measuring up to 9 mm, no gallstones however moderate inflammatory changes of the gallbladder as well as the dilatation of the cystic duct. Related Data Home Medications Medication Instructions Recorded Confirmed ASPIRIN (Aspirin EC) 81 mg PO SEE INSTRUCTIONS ##0 10/02/12 08/01/20 CA PANTOTHENATE/FOLIC ACID/VIT 1 tab PO 3XW ##0 10/02/12 08/01/20 (MULTIVITAMIN) CALCIUM CARBONATE (Calcium) 600 mg PO BIDCC ##0 10/02/12 08/01/20 ascorbic acid (vitamin C) 500 mg 500 mg PO 3XW PRN cold prevention 10/02/12 08/01/20 tablet ##0 atorvastatin 20 mg tablet 20 mg PO DAILY 06/01/20 08/01/20 cholecalciferol (vitamin D3) 50 50 mcg PO DAILY 06/01/20 08/01/20 mcg (2,000 unit) capsule cyanocobalamin (vitamin B-12) 1,000 mcg PO 3XW 08/01/20 08/01/20 1,000 mcg tablet (Vitamin B-12) levothyroxine 50 mcg tablet 50 mcg PO AC 08/01/20 08/01/20 naphazoline 0.012 % eye drops 1 - 2 drp ophthalmic (eye) QID PRN 08/01/20 08/01/20 Dry Eyes vitamin B complex 1 tab PO 3XW 08/01/20 08/01/20 zinc 0.5 tab PO 3XW 08/01/20 08/01/20 Previous Rx's Medication Instructions Recorded hydrocortisone 2.5 % topical cream 1 applic ME QD-BID PRN hemorrhoids 09/02/22 with perineal applicator #30 grams hydrocortisone acetate 25 mg 25 mg ME BEDTIME PRN hemorrhoids 09/02/22 rectal suppository #12 ea nitrofurantoin macrocrystal 100 mg 100 mg PO BID 7 days #14 caps 09/02/22 capsule ondansetron 4 mg disintegrating 4 mg PO Q8H PRN nausea and 09/02/22 tablet vomiting #10 tabs Allergies Allergy/AdvReac Type Severity Reaction Status Date / Time oxycodone Allergy Mild Rash on Verified 09/02/22 16:11 abdominal area Sulfa (Sulfonamide AdvReac Severe Vomiting Verified 09/02/22 16:11 Antibiotics) and Diarrhea ciprofloxacin AdvReac Verified 09/02/22 16:11 gemifloxacin AdvReac Verified 09/02/22 16:11 levofloxacin AdvReac Verified 09/02/22 16:11 moxifloxacin AdvReac Verified 09/02/22 16:11 norfloxacin AdvReac Verified 09/02/22 16:11 ofloxacin AdvReac Verified 09/02/22 16:11 Review of Systems <TERESO Tabares - Last Filed: 09/02/22 19:10> Review of Systems ROS Unobtainable: All systems reviewed & are unremarkable except as noted in HPI and below Patient History <TERESO Tabares - Last Filed: 09/02/22 19:10> Medical History BPH NOS w/o ur obs/LUTS Elevated PSA Erectile dysfunction Osteoarthritis Rheumatoid arthritis Surgical History History of back surgery Family History Brother Hearing impaired Social History marital status: number of children: 1 household members: none occupational status: previously employed Smoking Status: Former smoker alcohol intake: current caffeine: Yes Smoking Status: Former smoker alcohol intake frequency: a few times a week Alcohol type: beer Substance Use Type: does not use Exam <TERESO Tbaares - Last Filed: 09/02/22 19:10> Narrative Exam Narrative: Reviewed vitals signs and nursing notes. General: cooperative, in no acute distress, well groomed HEENT: symmetrical facial expressions, moist mucous membranes, neck is supple CV: regular rate and rhythm, warm extremities without tachycardia, murmur, diaphoresis or fever Respiratory: Without abnormal breath sounds, normal work of breathing, without tachypnea, hypoxia. GI: abdomen soft, nontender to palpation in all quadrants, nondistended, without masses, rebound tenderness or CVA tenderness bilaterally. Simeon sign is positive, no tenderness to abdomen with palpation, negative psoas and Rovsing signs. No CVA tenderness bilaterally : No pain no abnormalities on exam, patient has external hemorrhoid that is tender, soft to palpation, small in size. MSK: moves all extremities, neurovascularly intact, no weakness, normal tone Skin: brisk capillary refill, without rash or wound Neuro: normal speech and cognition, A&O x3, ambulatory, clear speech Initial Vital Signs Initial Vital Signs: Vital Signs Temperature 98.2 F 09/02/22 16:11 Pulse Rate 63 09/02/22 16:11 Respiratory Rate 20 09/02/22 16:11 Blood Pressure 156/69 H 09/02/22 16:11 Pulse Oximetry 98 09/02/22 16:11 Oxygen Delivery Method Room Air 09/02/22 16:11 <Thang Gresham DO - Last Filed: 09/02/22 20:41> Initial Vital Signs Initial Vital Signs: Vital Signs Temperature 98.2 F 09/02/22 16:11 Pulse Rate 63 03/11/23 16:11 Respiratory Rate 20 09/02/22 16:11 Blood Pressure 156/69 H 09/02/22 16:11 Pulse Oximetry 98 09/02/22 16:11 Oxygen Delivery Method Room Air 09/02/22 16:11 Course <TERESO Tabares - Last Filed: 09/02/22 19:10> Orders Ordered: ED Orders 09/02/22 16:43 Urine Microscopic Stat 09/02/22 16:48 US abdomen limited Stat 09/02/22 17:17 CBC Auto Diff [Complete Blood Count AUTO DIFF] Stat CMP [Comprehensive Metabolic Panel] Stat CRP [C-Reactive Protein Quant] Stat Lactate (Lactic Acid) Stat Lipase Stat Magnesium Stat TSH [Thyroid Stimulating Hormone] Stat 09/02/22 17:39 Respiratory Panel (Film Array) Stat 09/02/22 18:30 Urine Culture Stat Discontinued Medications Hydrocortisone (Hydrocortisone 2.5% Cream 30 Gm) 1 applic TOP NOW ONE Stop: 09/02/22 19:00 Last Admin: 09/02/22 19:46 Dose: Not Given Documented By: MOE Hydrocortisone/Pramoxine (Hc/Pramoxine 10gm Foam) 1 applic ME NOW ONE Stop: 09/02/22 18:58 Last Admin: 09/02/22 19:46 Dose: Not Given Documented By: MOE Sodium Chloride (Normal Saline 0.9%) 1,000 mls @ 1,000 mls/hr IV BOLUS ONE Stop: 09/02/22 17:42 Last Infusion: 09/02/22 18:38 Dose: 0 mls/hr Documented By: Admin: 09/02/22 17:26 Dose: 1,000 mls/hr Documented By: TREVON Nitrofurantoin Macrocrystals (Nitrofurantoin Er 100 Mg Capsule) 100 mg PO NOW ONE Stop: 09/02/22 18:48 Last Admin: 09/02/22 19:28 Dose: 100 mg Documented By: TERVON Ondansetron HCl (Ondansetron 4 Mg/2 Ml Inj) 4 mg IV NOW ONE Stop: 09/02/22 16:45 Last Admin: 09/02/22 17:25 Dose: 4 mg Documented By: TREVON Ondansetron HCl (Ondansetron 4 Mg Odt Prepack) 1 bottle MISC SEEINSTR ONE Stop: 09/02/22 18:49 Last Admin: 09/02/22 19:28 Dose: 1 bottle Documented By: TREVON Vital Signs Vital signs: Vital Signs - 8 hr 09/02/22 16:11 09/02/22 16:11 09/02/22 16:11 Temperature 98.2 F Pulse Rate 63 60 Respiratory Rate 20 16 Blood Pressure 156/69 H 143/63 H Pulse Oximetry 98 100 Oxygen Delivery Method Room Air 09/02/22 16:30 09/02/22 16:30 09/02/22 17:00 Temperature Pulse Rate 63 Respiratory Rate Blood Pressure 153/68 H 164/77 H Pulse Oximetry 98 Oxygen Delivery Method 09/02/22 17:00 09/02/22 17:30 09/02/22 17:31 Temperature Pulse Rate 65 62 65 Respiratory Rate Blood Pressure Pulse Oximetry 97 100 99 Oxygen Delivery Method 09/02/22 17:31 09/02/22 18:00 09/02/22 18:00 Temperature Pulse Rate 69 Respiratory Rate 20 Blood Pressure 156/73 H 139/67 Pulse Oximetry 96 Oxygen Delivery Method Room Air 09/02/22 18:30 09/02/22 18:38 09/02/22 18:38 Temperature Pulse Rate 64 64 Respiratory Rate 20 Blood Pressure 151/70 H Pulse Oximetry 97 97 Oxygen Delivery Method <Thang Gresham DO - Last Filed: 09/02/22 20:41> Orders Ordered: ED Orders 09/02/22 16:43 Urine Microscopic Stat 09/02/22 16:48 US abdomen limited Stat 09/02/22 17:17 CBC Auto Diff [Complete Blood Count AUTO DIFF] Stat CMP [Comprehensive Metabolic Panel] Stat CRP [C-Reactive Protein Quant] Stat Lactate (Lactic Acid) Stat Lipase Stat Magnesium Stat TSH [Thyroid Stimulating Hormone] Stat 09/02/22 17:39 Respiratory Panel (Film Array) Stat 09/02/22 18:30 Urine Culture Stat Discontinued Medications Hydrocortisone (Hydrocortisone 2.5% Cream 30 Gm) 1 applic TOP NOW ONE Stop: 09/02/22 19:00 Last Admin: 09/02/22 19:46 Dose: Not Given Documented By: MOE Hydrocortisone/Pramoxine (Hc/Pramoxine 10gm Foam) 1 applic ME NOW ONE Stop: 09/02/22 18:58 Last Admin: 09/02/22 19:46 Dose: Not Given Documented By: MOE Sodium Chloride (Normal Saline 0.9%) 1,000 mls @ 1,000 mls/hr IV BOLUS ONE Stop: 09/02/22 17:42 Last Infusion: 09/02/22 18:38 Dose: 0 mls/hr Documented By: Admin: 09/02/22 17:26 Dose: 1,000 mls/hr Documented By: TREVON Nitrofurantoin Macrocrystals (Nitrofurantoin Er 100 Mg Capsule) 100 mg PO NOW ONE Stop: 09/02/22 18:48 Last Admin: 09/02/22 19:28 Dose: 100 mg Documented By: TREVON Ondansetron HCl (Ondansetron 4 Mg/2 Ml Inj) 4 mg IV NOW ONE Stop: 09/02/22 16:45 Last Admin: 09/02/22 17:25 Dose: 4 mg Documented By: TREVON Ondansetron HCl (Ondansetron 4 Mg Odt Prepack) 1 bottle MISC SEEINSTR ONE Stop: 09/02/22 18:49 Last Admin: 09/02/22 19:28 Dose: 1 bottle Documented By: TREVON Vital Signs Vital signs: Vital Signs - 8 hr 09/02/22 16:11 09/02/22 16:11 09/02/22 16:11 Temperature 98.2 F Pulse Rate 63 60 Respiratory Rate 20 16 Blood Pressure 156/69 H 143/63 H Pulse Oximetry 98 100 Oxygen Delivery Method Room Air 09/02/22 16:30 09/02/22 16:30 09/02/22 17:00 Temperature Pulse Rate 63 Respiratory Rate Blood Pressure 153/68 H 164/77 H Pulse Oximetry 98 Oxygen Delivery Method 09/02/22 17:00 09/02/22 17:30 09/02/22 17:31 Temperature Pulse Rate 65 62 65 Respiratory Rate Blood Pressure Pulse Oximetry 97 100 99 Oxygen Delivery Method 09/02/22 17:31 09/02/22 18:00 09/02/22 18:00 Temperature Pulse Rate 69 Respiratory Rate 20 Blood Pressure 156/73 H 139/67 Pulse Oximetry 96 Oxygen Delivery Method Room Air 09/02/22 18:30 09/02/22 18:38 09/02/22 18:38 Temperature Pulse Rate 64 64 Respiratory Rate 20 Blood Pressure 151/70 H Pulse Oximetry 97 97 Oxygen Delivery Method MDM - Nausea/Vomiting/Diarrhea <Mariola Mcdaniel, [facility] - Last Filed: 09/02/22 19:10> Lab Data 09/02/22 17:17 09/02/22 17:17 Labs: Lab Results 09/02/22 09/02/22 09/02/22 Range/Units 17:17 17:17 17:17 WBC (4.5-11.0) X10^3/uL RBC (4.5-5.9) X10^6/uL Hgb (13.5-17.5) g/dL Hct (41-53) % MCV (80-100) fL MCH (26-34) PG MCHC (30-36) % RDW (11.6-14.8) % Plt Count (150-400) X10^3/uL Neut % (Auto) (50-75) % Lymph % (Auto) (25-40) % [place] % (Auto) (3-14) % Eos % (Auto) (2-4) % Baso % (Auto) (0-2) % Neut # (Auto) (8498-6242) /uL Lymph # (Auto) (1744-3888) /uL [place] # (Auto) (0-900) /uL Eos # (Auto) (0-450) /uL Baso # (Auto) (0-100) /uL Sodium 139 (137-145) mmol/L Potassium 4.0 (3.4-5.1) mmol/L Chloride 102 (98-107) mmol/L Carbon Dioxide 33 H (22-32) mmol/L BUN 14 (9-20) mg/dL Creatinine 0.93 (0.66-1.25) mg/dL Estimated GFR > 60 (>60) mL/min BUN/Creatinine Ratio 15.1 (6-22) Glucose 99 (80-110) mg/dL Lactate 1.2 (0.7-2.1) mmol/L Calcium 8.7 (8.4-10.2) mg/dL Magnesium 1.9 (1.6-2.3) mg/dL Total Bilirubin 1.0 (0.2-1.3) mg/dL AST 29 (17-59) IU/L ALT 25 (<50) IU/L Alkaline Phosphatase 58 (38-126) U/L C-Reactive Protein 1.2 H (<1.0) mg/dL Total Protein 7.1 (6.3-8.2) g/dL Albumin 3.9 (3.5-5.0) g/dL Globulin 3.2 (1.7-4.1) g/dL Albumin/Globulin Ratio 1.2 (1.0-2.8) Lipase (23-300) U/L TSH 1.37 (0.47-4.68) uIU/mL Urine RBC (0-5/HPF) Urine WBC (0-5/HPF) Ur Squamous Epith Cells (0-5/HPF) Urine Bacteria (None) Ur Culture Indicated? Chlamy pneumoniae PCR (Not Detect) Adenovirus (PCR) (Not Detect) B. pertussis DNA (PCR) (Not Detecte) B.parapertussis DNA PCR (Not Detecte) Coronavirus OC43 (PCR) (Not Detect) Coronavirus HKU1 (PCR) (Not Detect) Coronavirus 229E (PCR) (Not Detect) SARS-CoV-2 (PCR) (Not Detecte) Coronavirus NL63 (PCR) (Not Detect) Human Metapneumovir PCR (Not Detect) Influenza Type A (PCR) (Not Detect) Influenza Type B (PCR) (Not Detect) M. pneumoniae (PCR) (Not Detect) Parainfluenza 1 (PCR) (Not Detect) Parainfluenza 2 (PCR) (Not Detect) Parainfluenza 3 (PCR) (Not Detect) Parainfluenza 4 (PCR) (Not Detect) RSV (PCR) (Not Detect) Entero/Rhino (PCR) (Not Detect) 09/02/22 09/02/22 09/02/22 Range/Units 17:17 17:17 17:39 WBC 9.5 (4.5-11.0) X10^3/uL RBC 4.81 (4.5-5.9) X10^6/uL Hgb 15.2 (13.5-17.5) g/dL Hct 45.1 (41-53) % MCV 93.9 (80-100) fL MCH 31.6 (26-34) PG MCHC 33.6 (30-36) % RDW 13.4 (11.6-14.8) % Plt Count 157 (150-400) X10^3/uL Neut % (Auto) 72.2 (50-75) % Lymph % (Auto) 16.1 L (25-40) % [place] % (Auto) 9.5 (3-14) % Eos % (Auto) 1.7 L (2-4) % Baso % (Auto) 0.5 (0-2) % Neut # (Auto) 6800 (2426-9199) /uL Lymph # (Auto) 1500 (7438-6743) /uL [place] # (Auto) 900 (0-900) /uL Eos # (Auto) 200 (0-450) /uL Baso # (Auto) 0 (0-100) /uL Sodium (137-145) mmol/L Potassium (3.4-5.1) mmol/L Chloride (98-107) mmol/L Carbon Dioxide (22-32) mmol/L BUN (9-20) mg/dL Creatinine (0.66-1.25) mg/dL Estimated GFR (>60) mL/min BUN/Creatinine Ratio (6-22) Glucose (80-110) mg/dL Lactate (0.7-2.1) mmol/L Calcium (8.4-10.2) mg/dL Magnesium (1.6-2.3) mg/dL Total Bilirubin (0.2-1.3) mg/dL AST (17-59) IU/L ALT (<50) IU/L Alkaline Phosphatase (38-126) U/L C-Reactive Protein (<1.0) mg/dL Total Protein (6.3-8.2) g/dL Albumin (3.5-5.0) g/dL Globulin (1.7-4.1) g/dL Albumin/Globulin Ratio (1.0-2.8) Lipase 39 (23-300) U/L TSH (0.47-4.68) uIU/mL Urine RBC (0-5/HPF) Urine WBC (0-5/HPF) Ur Squamous Epith Cells (0-5/HPF) Urine Bacteria (None) Ur Culture Indicated? Chlamy pneumoniae PCR Not detected (Not Detect) Adenovirus (PCR) Not detected (Not Detect) B. pertussis DNA (PCR) Not detected (Not Detecte) B.parapertussis DNA PCR Not detected (Not Detecte) Coronavirus OC43 (PCR) Not detected (Not Detect) Coronavirus HKU1 (PCR) Not detected (Not Detect) Coronavirus 229E (PCR) Not detected (Not Detect) SARS-CoV-2 (PCR) Not detected (Not Detecte) Coronavirus NL63 (PCR) Not detected (Not Detect) Human Metapneumovir PCR Not detected (Not Detect) Influenza Type A (PCR) Not detected (Not Detect) Influenza Type B (PCR) Not detected (Not Detect) M. pneumoniae (PCR) Not detected (Not Detect) Parainfluenza 1 (PCR) Not detected (Not Detect) Parainfluenza 2 (PCR) Not detected (Not Detect) Parainfluenza 3 (PCR) Not detected (Not Detect) Parainfluenza 4 (PCR) Not detected (Not Detect) RSV (PCR) Not detected (Not Detect) Entero/Rhino (PCR) Not detected (Not Detect) 09/02/22 Range/Units 18:30 WBC (4.5-11.0) X10^3/uL RBC (4.5-5.9) X10^6/uL Hgb (13.5-17.5) g/dL Hct (41-53) % MCV (80-100) fL MCH (26-34) PG MCHC (30-36) % RDW (11.6-14.8) % Plt Count (150-400) X10^3/uL Neut % (Auto) (50-75) % Lymph % (Auto) (25-40) % [place] % (Auto) (3-14) % Eos % (Auto) (2-4) % Baso % (Auto) (0-2) % Neut # (Auto) (0847-9060) /uL Lymph # (Auto) (9811-9041) /uL [place] # (Auto) (0-900) /uL Eos # (Auto) (0-450) /uL Baso # (Auto) (0-100) /uL Sodium (137-145) mmol/L Potassium (3.4-5.1) mmol/L Chloride (98-107) mmol/L Carbon Dioxide (22-32) mmol/L BUN (9-20) mg/dL Creatinine (0.66-1.25) mg/dL Estimated GFR (>60) mL/min BUN/Creatinine Ratio (6-22) Glucose (80-110) mg/dL Lactate (0.7-2.1) mmol/L Calcium (8.4-10.2) mg/dL Magnesium (1.6-2.3) mg/dL Total Bilirubin (0.2-1.3) mg/dL AST (17-59) IU/L ALT (<50) IU/L Alkaline Phosphatase (38-126) U/L C-Reactive Protein (<1.0) mg/dL Total Protein (6.3-8.2) g/dL Albumin (3.5-5.0) g/dL Globulin (1.7-4.1) g/dL Albumin/Globulin Ratio (1.0-2.8) Lipase (23-300) U/L TSH (0.47-4.68) uIU/mL Urine RBC None seen (0-5/HPF) Urine WBC 5-10/hpf H (0-5/HPF) Ur Squamous Epith Cells 0-1 /hpf (0-5/HPF) Urine Bacteria Occasional (0-1) (None) Ur Culture Indicated? Specimen cultured Chlamy pneumoniae PCR (Not Detect) Adenovirus (PCR) (Not Detect) B. pertussis DNA (PCR) (Not Detecte) B.parapertussis DNA PCR (Not Detecte) Coronavirus OC43 (PCR) (Not Detect) Coronavirus HKU1 (PCR) (Not Detect) Coronavirus 229E (PCR) (Not Detect) SARS-CoV-2 (PCR) (Not Detecte) Coronavirus NL63 (PCR) (Not Detect) Human Metapneumovir PCR (Not Detect) Influenza Type A (PCR) (Not Detect) Influenza Type B (PCR) (Not Detect) M. pneumoniae (PCR) (Not Detect) Parainfluenza 1 (PCR) (Not Detect) Parainfluenza 2 (PCR) (Not Detect) Parainfluenza 3 (PCR) (Not Detect) Parainfluenza 4 (PCR) (Not Detect) RSV (PCR) (Not Detect) Entero/Rhino (PCR) (Not Detect) Imaging Data US - abdomen: Radiologist's Impression: PROCEDURE:? US ABDOMEN LIMITED ? INDICATIONS:? VOMITING, DIARRHEA; RECENT CHOLECYSTITIS ? TECHNIQUE:? Real-time scanning was performed of the abdominal and retroperitoneal organs, with image documentation.? ? COMPARISON:? None. ? FINDINGS:? ? Liver:? Liver is normal in size and homogeneous in echotexture.? ? Gallbladder:? No stones or wall thickness.? No pericholecystic fluid.? Sonographic Simeon's is negative.? ? Biliary ducts:? Intrahepatic bile ducts are non-dilated.? Extrahepatic bile duct caliber measures 5.4 mm.? Normal is 6-7 mm or less in diameter, or 10 mm or less post-cholecystectomy.? ? Pancreas:? Visualized portions of the pancreas are sonographically normal.? ? Miscellaneous:? No free abdominal fluid.? ? IMPRESSION:? Normal abdominal ultrasound. ? ? ? Dictated by: Dean Oreilly M.D. on 09/02/2022 at 17:48 ? ? Approved by: Dean Oreilly M.D. on 09/02/2022 at 17:50 ? MDM Narrative Medical decision making narrative: Chief Complaint: Independent historian: Patient Differential diagnoses include but are not limited to: biliary disease, gastroenteritis, GERD, bowel obstruction, acute viral process, perforated viscus, appendicitis, colitis, diverticulitis, IBD/IBS, intestinal ischemia, obstructive uropathy, lumbar radiculopathy, acute cystitis, prostatitis, pyelonephritis, acute hepatitis, mesenteric ischemia, urinary retention, cholecystitis. Doubt atypical ACS. No peritoneal signs on abdominal exam. Significant tenderness to the right upper quadrant with palpation, patient's exam is timothy ewhat unremarkable, he endorses dyspepsia. I have independently reviewed the patient's vital signs and nursing notes as well as prior records if available. Pertinent lab findings reviewed: Pertinent Imaging reviewed: Abdominal ultrasound right upper quadrant Course of care: Ordered CBC, CMP, lactic acid, CRP, UA, respiratory panel, IV Zofran, IV fluid bolus 1723 Patient receiving his IV fluid bolus currently, ultrasound in the room, has not left a urine sample yet. On exam patient was nontender to the right upper quadrant with a negative Simeon sign nontender over McBurney's point and no CVA tenderness bilaterally. His lab work overall is unremarkable. His CO2 is mildly elevated at 33 otherwise no abnormalities, his CRP is 1.2, normal TSH and lipase. 180 patient has not left a urine sample yet, respiratory panel is still pending. Ultrasound report is pending. 183 I had patient ambulate to the bathroom for urine sample, urine was clear and yellow, trace of leukocytes, ketones and blood, pending microscopy Patient has external hemorrhoids that are tender, soft elevation, erythematous, without cellulitis surrounding, he had a bowel movement without blood. Opted to give him some hydrocortisone ointment for these prior to going home as the pharmacies are closed. He expresses pain on the external of his anus and no internal rectal pain, no pain with defecation, no urinary retention, no dysuria, urinary frequency or urgency, only complains of nausea and vomiting without abd ominal pain. He is nontoxic, without fever, and is p.o. tolerant. His symptoms were treated with Zofran, 1 L of IV fluid, Macrobid for UA positive for WBCs on both urine dip and microscopy. Urine culture is pending. He was given urology follow-up contact information if his symptoms are ongoing. Post-void residual was 12 mL. He does not have retention today. Patient's last visit shows he had gallbladder wall thickening with pericholecystic fluid and he did not receive antibiotics however he has multiple allergies. Today his abdominal ultrasounds hose and normal right upper quadrant ultrasound without pericholecystic fluid, gallbladder wall thickening or gallstones. Patient was given a copy of this information, he does have a history of rheumatoid arthritis, he denies any other symptoms still. His CRP is 1.2, he appears much more comfortable, is ambulatory with a steady gait and does not have postural dizziness. Social considerations that may affect disposition: none Questions are addressed and there is agreement with the plan and for follow-up. Patient is appropriate for outpatient management. MIPS: This encounter doesn't have any diagnosis' associated with MIPS criteria. <Thang Gresham DO - Last Filed: 09/02/22 20:41> Lab Data Labs: Lab Results 09/02/22 09/02/22 09/02/22 Range/Units 17:17 17:17 17:17 WBC (4.5-11.0) X10^3/uL RBC (4.5-5.9) X10^6/uL Hgb (13.5-17.5) g/dL Hct (41-53) % MCV (80-100) fL MCH (26-34) PG MCHC (30-36) % RDW (11.6-14.8) % Plt Count (150-400) X10^3/uL Neut % (Auto) (50-75) % Lymph % (Auto) (25-40) % [place] % (Auto) (3-14) % Eos % (Auto) (2-4) % Baso % (Auto) (0-2) % Neut # (Auto) (5762-6383) /uL Lymph # (Auto) (2593-0388) /uL [place] # (Auto) (0-900) /uL Eos # (Auto) (0-450) /uL Baso # (Auto) (0-100) /uL Sodium 139 (137-145) mmol/L Potassium 4.0 (3.4-5.1) mmol/L Chloride 102 (98-107) mmol/L Carbon Dioxide 33 H (22-32) mmol/L BUN 14 (9-20) mg/dL Creatinine 0.93 (0.66-1.25) mg/dL Estimated GFR > 60 (>60) mL/min BUN/Creatinine Ratio 15.1 (6-22) Glucose 99 (80-110) mg/dL Lactate 1.2 (0.7-2.1) mmol/L Calcium 8.7 (8.4-10.2) mg/dL Magnesium 1.9 (1.6-2.3) mg/dL Total Bilirubin 1.0 (0.2-1.3) mg/dL AST 29 (17-59) IU/L ALT 25 (<50) IU/L Alkaline Phosphatase 58 (38-126) U/L C-Reactive Protein 1.2 H (<1.0) mg/dL Total Protein 7.1 (6.3-8.2) g/dL Albumin 3.9 (3.5-5.0) g/dL Globulin 3.2 (1.7-4.1) g/dL Albumin/Globulin Ratio 1.2 (1.0-2.8) Lipase (23-300) U/L TSH 1.37 (0.47-4.68) uIU/mL Urine RBC (0-5/HPF) Urine WBC (0-5/HPF) Ur Squamous Epith Cells (0-5/HPF) Urine Bacteria (None) Ur Culture Indicated? Chlamy pneumoniae PCR (Not Detect) Adenovirus (PCR) (Not Detect) B. pertussis DNA (PCR) (Not Detecte) B.parapertussis DNA PCR (Not Detecte) Coronavirus OC43 (PCR) (Not Detect) Coronavirus HKU1 (PCR) (Not Detect) Coronavirus 229E (PCR) (Not Detect) SARS-CoV-2 (PCR) (Not Detecte) Coronavirus NL63 (PCR) (Not Detect) Human Metapneumovir PCR (Not Detect) Influenza Type A (PCR) (Not Detect) Influenza Type B (PCR) (Not Detect) M. pneumoniae (PCR) (Not Detect) Parainfluenza 1 (PCR) (Not Detect) Parainfluenza 2 (PCR) (Not Detect) Parainfluenza 3 (PCR) (Not Detect) Parainfluenza 4 (PCR) (Not Detect) RSV (PCR) (Not Detect) Entero/Rhino (PCR) (Not Detect) 09/02/22 09/02/22 09/02/22 Range/Units 17:17 17:17 17:39 WBC 9.5 (4.5-11.0) X10^3/uL RBC 4.81 (4.5-5.9) X10^6/uL Hgb 15.2 (13.5-17.5) g/dL Hct 45.1 (41-53) % MCV 93.9 (80-100) fL MCH 31.6 (26-34) PG MCHC 33.6 (30-36) % RDW 13.4 (11.6-14.8) % Plt Count 157 (150-400) X10^3/uL Neut % (Auto) 72.2 (50-75) % Lymph % (Auto) 16.1 L (25-40) % [place] % (Auto) 9.5 (3-14) % Eos % (Auto) 1.7 L (2-4) % Baso % (Auto) 0.5 (0-2) % Neut # (Auto) 6800 (8274-7565) /uL Lymph # (Auto) 1500 (9428-4041) /uL [place] # (Auto) 900 (0-900) /uL Eos # (Auto) 200 (0-450) /uL Baso # (Auto) 0 (0-100) /uL Sodium (137-145) mmol/L Potassium (3.4-5.1) mmol/L Chloride (98-107) mmol/L Carbon Dioxide (22-32) mmol/L BUN (9-20) mg/dL Creatinine (0.66-1.25) mg/dL Estimated GFR (>60) mL/min BUN/Creatinine Ratio (6-22) Glucose (80-110) mg/dL Lactate (0.7-2.1) mmol/L Calcium (8.4-10.2) mg/dL Magnesium (1.6-2.3) mg/dL Total Bilirubin (0.2-1.3) mg/dL AST (17-59) IU/L ALT (<50) IU/L Alkaline Phosphatase (38-126) U/L C-Reactive Protein (<1.0) mg/dL Total Protein (6.3-8.2) g/dL Albumin (3.5-5.0) g/dL Globulin (1.7-4.1) g/dL Albumin/Globulin Ratio (1.0-2.8) Lipase 39 (23-300) U/L TSH (0.47-4.68) uIU/mL Urine RBC (0-5/HPF) Urine WBC (0-5/HPF) Ur Squamous Epith Cells (0-5/HPF) Urine Bacteria (None) Ur Culture Indicated? Chlamy pneumoniae PCR Not detected (Not Detect) Adenovirus (PCR) Not detected (Not Detect) B. pertussis DNA (PCR) Not detected (Not Detecte) B.parapertussis DNA PCR Not detected (Not Detecte) Coronavirus OC43 (PCR) Not detected (Not Detect) Coronavirus HKU1 (PCR) Not detected (Not Detect) Coronavirus 229E (PCR) Not detected (Not Detect) SARS-CoV-2 (PCR) Not detected (Not Detecte) Coronavirus NL63 (PCR) Not detected (Not Detect) Human Metapneumovir PCR Not detected (Not Detect) Influenza Type A (PCR) Not detected (Not Detect) Influenza Type B (PCR) Not detected (Not Detect) M. pneumoniae (PCR) Not detected (Not Detect) Parainfluenza 1 (PCR) Not detected (Not Detect) Parainfluenza 2 (PCR) Not detected (Not Detect) Parainfluenza 3 (PCR) Not detected (Not Detect) Parainfluenza 4 (PCR) Not detected (Not Detect) RSV (PCR) Not detected (Not Detect) Entero/Rhino (PCR) Not detected (Not Detect) 09/02/22 Range/Units 18:30 WBC (4.5-11.0) X10^3/uL RBC (4.5-5.9) X10^6/uL Hgb (13.5-17.5) g/dL Hct (41-53) % MCV (80-100) fL MCH (26-34) PG MCHC (30-36) % RDW (11.6-14.8) % Plt Count (150-400) X10^3/uL Neut % (Auto) (50-75) % Lymph % (Auto) (25-40) % [place] % (Auto) (3-14) % Eos % (Auto) (2-4) % Baso % (Auto) (0-2) % Neut # (Auto) (6152-6701) /uL Lymph # (Auto) (0563-6155) /uL [place] # (Auto) (0-900) /uL Eos # (Auto) (0-450) /uL Baso # (Auto) (0-100) /uL Sodium (137-145) mmol/L Potassium (3.4-5.1) mmol/L Chloride (98-107) mmol/L Carbon Dioxide (22-32) mmol/L BUN (9-20) mg/dL Creatinine (0.66-1.25) mg/dL Estimated GFR (>60) mL/min BUN/Creatinine Ratio (6-22) Glucose (80-110) mg/dL Lactate (0.7-2.1) mmol/L Calcium (8.4-10.2) mg/dL Magnesium (1.6-2.3) mg/dL Total Bilirubin (0.2-1.3) mg/dL AST (17-59) IU/L ALT (<50) IU/L Alkaline Phosphatase (38-126) U/L C-Reactive Protein (<1.0) mg/dL Total Protein (6.3-8.2) g/dL Albumin (3.5-5.0) g/dL Globulin (1.7-4.1) g/dL Albumin/Globulin Ratio (1.0-2.8) Lipase (23-300) U/L TSH (0.47-4.68) uIU/mL Urine RBC None seen (0-5/HPF) Urine WBC 5-10/hpf H (0-5/HPF) Ur Squamous Epith Cells 0-1 /hpf (0-5/HPF) Urine Bacteria Occasional (0-1) (None) Ur Culture Indicated? Specimen cultured Chlamy pneumoniae PCR (Not Detect) Adenovirus (PCR) (Not Detect) B. pertussis DNA (PCR) (Not Detecte) B.parapertussis DNA PCR (Not Detecte) Coronavirus OC43 (PCR) (Not Detect) Coronavirus HKU1 (PCR) (Not Detect) Coronavirus 229E (PCR) (Not Detect) SARS-CoV-2 (PCR) (Not Detecte) Coronavirus NL63 (PCR) (Not Detect) Human Metapneumovir PCR (Not Detect) Influenza Type A (PCR) (Not Detect) Influenza Type B (PCR) (Not Detect) M. pneumoniae (PCR) (Not Detect) Parainfluenza 1 (PCR) (Not Detect) Parainfluenza 2 (PCR) (Not Detect) Parainfluenza 3 (PCR) (Not Detect) Parainfluenza 4 (PCR) (Not Detect) RSV (PCR) (Not Detect) Entero/Rhino (PCR) (Not Detect) Discharge Plan Departure Patient Disposition: Home Clinical Impression: Acute UTI, Dehydration, Vomiting and diarrhea Hemorrhoids Qualifiers: Hemorrhoid type: unspecified Qualified Code(s): K64.9 - Unspecified hemorrhoids Instructions: Hemorrhoids, Dehydration, DI for Urinary Tract Infection (UTI), DI for Vomiting -- Adult Activity Restrictions/Additional Instructions: *You have been diagnosed with a mild urinary tract infection which could be related to prostatitis as well however we will start with treating this locally with an antibiotic called Macrobid/nitrofurantoin which action your bladder only. This should help improve the nausea and vomiting over the next 1-2 days. I have given use Zofran to use for nausea, please take Tylenol 650 mg every 6 hours as needed for pain. I encouraged to stay hydrated with clear fluids, avoid fatty foods, your liver enzymes have improved in your lab work has improved since last time. I hope that you start feeling better and if you do not, please come back and will re-evaluate everything. The respiratory viral panel was negative for all tested viruses. You received your 1st dose in the emergency department today, please brain picker your antibiotic tomorrow and take it twice a day for the next 7 days. We will follow-up on the urine culture and call you if we should change your antibiotic. Please use the hydrocortisone suppositories as needed for hemorrhoid pain and rectal pain, you may use the hydrocortisone ointment as well if it is helpful. *What to do: *Please continue to take your regular medications as directed. [x ] New medication prescriptions sent to your pharmacy: [[facility]] [ ] New medication written as a paper prescription [ ] No new medications given *Please follow up with your primary care provider in 2-3 days, call for an appointment. Let them know you were seen in the Emergency Department and that we asked that you be seen for follow-up. We will electronically transmit a record of today's note if your PCP is in our system *If you do not have a primary care provider please contact [phone] to [facility] with one of the [facility] primary care providers. *Return to Emergency Department if you should have any new, worsening, or concerning symptoms, such as [fever greater than 101F, chills, worsening pain, persistent vomiting or other bothersome symptoms]. Prescriptions: New nitrofurantoin macrocrystal 100 mg capsule 100 mg PO BID 7 Days Qty: 14 0RF Rx Instructions: must administer with a meal/food ondansetron 4 mg tablet,disintegrating 4 mg PO Q8H PRN (Reason: nausea and vomiting) Qty: 10 0RF hydrocortisone acetate 25 mg suppository 25 mg ME BEDTIME PRN (Reason: hemorrhoids) Qty: 12 0RF hydrocortisone 2.5 % cream with perineal applicator 1 applic ME QD-BID PRN (Reason: hemorrhoids) Qty: 30 0RF No Action ASPIRIN (Aspirin EC) 81 mg PO SEE INSTRUCTIONS Qty: 0 Rx Instructions: Patient has not started taking this CA PANTOTHENATE/FOLIC ACID/VIT (MULTIVITAMIN) 1 tab PO 3XW Qty: 0 CALCIUM CARBONATE (Calcium) 600 mg PO BIDCC Qty: 0 ascorbic acid (vitamin C) 500 MG tablet 500 mg PO 3XW PRN (Reason: cold prevention) Qty: 0 cyanocobalamin (vitamin B-12) [Vitamin B-12] 1,000 mcg Tablet 1,000 mcg PO 3XW naphazoline 0.012 % Drops 1 - 2 drp OPHTHALMIC (EYE) QID PRN (Reason: Dry Eyes) levothyroxine 50 mcg tablet 50 mcg PO AC Rx Instructions: Take 30min prior to breakfast vitamin B complex Tablet 1 tab PO 3XW Rx Instructions: 500mg of B3 zinc Tablet,Chewable 0.5 tab PO 3XW Rx Instructions: Take 6mg (0.5 tab of 12mg) atorvastatin 20 mg tablet 20 mg PO DAILY cholecalciferol (vitamin D3) 50 mcg (2,000 unit) capsule 50 mcg PO DAILY Referrals: Aakash Bassett MD [Physician] - Shanthi Luis MD [Physician] - Stand Alone Forms: Patient Portal/API <Thang Gresham DO - Last Filed: 09/02/22 20:41> Cosign ED Attending Cosjefature Attestation: I was immediately available in the department for consultation. This documentation has been reviewed and I agree with assessment and plan. Supervised by Thang Gresham DO
--- NOTE | 2022-09-02 16:48 | DI.US.S_ITS ---
PROCEDURE: US ABDOMEN LIMITED INDICATIONS: VOMITING, DIARRHEA; RECENT CHOLECYSTITIS TECHNIQUE: Real-time scanning was performed of the abdominal and retroperitoneal organs, with image documentation. COMPARISON: None. FINDINGS: Liver: Liver is normal in size and homogeneous in echotexture. Gallbladder: No stones or wall thickness. No pericholecystic fluid. Sonographic Simeon's is negative. Biliary ducts: Intrahepatic bile ducts are non-dilated. Extrahepatic bile duct caliber measures 5.4 mm. Normal is 6-7 mm or less in diameter, or 10 mm or less post-cholecystectomy. Pancreas: Visualized portions of the pancreas are sonographically normal. Miscellaneous: No free abdominal fluid. IMPRESSION: Normal abdominal ultrasound. Dictated by: Dean Oreilly M.D. on 09/02/2022 at 17:48 Approved by: Dean Oreilly M.D. on 09/02/2022 at 17:50
[2022-09-02] MEDS: ONDANSETRON 4 MG/2 ML INJ IV (17:25)
[2022-09-02] MEDS: SODIUM CHLORIDE 0.9% 1,000 ML 1000 ML IV (17:26)
[2022-09-02 17:35] LABS: Lactate (Lactic Acid) 1.2 mmol/L (0.7-2.1)
[2022-09-02 17:36] LABS: Lipase 39 U/L (23-300)
[2022-09-02 17:39] LABS: Alanine Aminotransferase 25 IU/L (<50); Albumin 3.9 g/dL (3.5-5.0); Albumin Globulin Ratio 1.2 (1.0-2.8); Alkaline Phosphatase 58 U/L (38-126); Aspartate Aminotransferase 29 IU/L (17-59); BUN Creatinine Ratio 15.1 (6-22); Blood Urea Nitrogen 14 mg/dL (9-20); C-Reactive Protein Quant 1.2 mg/dL (<1.0); Calcium 8.7 mg/dL (8.4-10.2); Carbon Dioxide 33 mmol/L (22-32); Chloride 102 mmol/L (98-107); Estimated Glomerular Filt Rate > 60 mL/min (>60); Globulin 3.2 g/dL (1.7-4.1); Glucose 99 mg/dL (80-110); HEMOLYSIS < 15 (0-50); Magnesium 1.9 mg/dL (1.6-2.3); Sodium 139 mmol/L (137-145); Total Protein 7.1 g/dL (6.3-8.2)
[2022-09-02 18:06] LABS: Thyroid Stimulating Hormone 1.37 uIU/mL (0.47-4.68)
[2022-09-02 18:07] LABS: Add Manual Diff / Slide Review NO; Basophils Absolute Auto 0 /uL (0-100); Basophils Percent Auto 0.5 % (0-2); Eosinophils Absolute Auto 200 /uL (0-450); Eosinophils Percent Auto 1.7 % (2-4); Hematocrit 45.1 % (41-53); Hemoglobin 15.2 g/dL (13.5-17.5); Lymphocytes Absolute Auto 1500 /uL (1100-4500); Lymphocytes Percent Auto 16.1 % (25-40); Mean Corpuscular HGB Conc 33.6 % (30-36); Mean Corpuscular Hemoglobin 31.6 PG (26-34); Mean Corpuscular Volume 93.9 fL (80-100); Monocytes Absolute Auto 900 /uL (0-900); Monocytes Percent Auto 9.5 % (3-14); Neutrophils Absolute Auto 6800 /uL (1500-7000); Neutrophils Percent Auto 72.2 % (50-75); Platelet Count 157 X10^3/uL (150-400); Red Blood Cell Count 4.81 X10^6/uL (4.5-5.9); Red Cell Distribution Width 13.4 % (11.6-14.8); White Blood Cell Count 9.5 X10^3/uL (4.5-11.0)
[2022-09-02 18:45] LABS: Adenovirus Not Detected (Not Detect); B. parapertussis Not Detected (Not Detecte); Bordetella pertussis Not Detected (Not Detecte); Chlamydophila pneumoniae Not Detected (Not Detect); Coronavirus 229E Not Detected (Not Detect); Coronavirus HKU1 Not Detected (Not Detect); Coronavirus NL 63 Not Detected (Not Detect); Coronavirus OC43 Not Detected (Not Detect); Human Metapneumovirus Not Detected (Not Detect); Human Rhinovirus/Enterovirus Not Detected (Not Detect); Influenza A Not Detected (Not Detect); Influenza B Not Detected (Not Detect); Mycoplasma pneumoniae Not Detected (Not Detect); Parainfluenza Virus 1 Not Detected (Not Detect); Parainfluenza Virus 2 Not Detected (Not Detect); Parainfluenza Virus 3 Not Detected (Not Detect); Parainfluenza Virus 4 Not Detected (Not Detect); Respiratory Syncytial Virus Not Detected (Not Detect); SARS- CoV-2 Not Detected (Not Detecte)
[2022-09-02 18:45] LABS: Bacteria Urine Occasional (0-1); Culture Indicated Urine Specimen Cultured; RBC Urine None Seen (0-5/HPF); Squamous Epithelial Cell Urine 0-1 /HPF (0-5/HPF); WBC Urine 5-10/HPF (0-5/HPF)
[2022-09-02] MEDS: NITROFURANTOIN ER 100 MG CAPSULE PO (19:28)
[2022-09-02] MEDS: ONDANSETRON 4 MG ODT PREPACK 1 BOTTLE MISC (19:28)
== END 2022-09-02 19:48 | disposition home or self-care (01) ==
PROVIDERS: Emergency Provider Nurse Practitioner Critical Care Medicine
DX: N39.0 Urinary tract infection, site not specified (principal); E86.0 Dehydration; R19.7 Diarrhea, unspecified; R11.0 Nausea; K64.9 Unspecified hemorrhoids; Z20.822 Contact with and (suspected) exposure to COVID-19
CPT/HCPCS: 36415; 76705; 80053; 81015; 83605; 83690; 83735; 84443; 85025; 86140; 87086; 87633; 96361; 96374; 99284; J2405

== ENCOUNTER 2022-09-18 11:12 | Emergency (ER) | payer MEDICARE, OTHER, SELFPAY ==
[2020-08-01 18:33] VITALS: BMI 22.8
[2022-09-18] VITALS (9 sets, daily range): BP systolic 127–159; BP diastolic 60–76; PULSE 65–71; RESP 14–16; TEMP 36.6; O2SAT 97–99; BMI 23.5
[2022-09-18] MEDS: ONDANSETRON 4 MG/2 ML INJ IV (11:55)
[2022-09-18 12:02] LABS: Add Manual Diff / Slide Review NO; Basophils Absolute Auto 100 /uL (0-100); Basophils Percent Auto 0.9 % (0-2); Eosinophils Absolute Auto 100 /uL (0-450); Eosinophils Percent Auto 1.9 % (2-4); Hematocrit 46.2 % (41-53); Hemoglobin 15.7 g/dL (13.5-17.5); Lymphocytes Absolute Auto 1700 /uL (1100-4500); Lymphocytes Percent Auto 22.2 % (25-40); Mean Corpuscular Hemoglobin 31.9 PG (26-34); Mean Corpuscular Volume 93.6 fL (80-100); Monocytes Absolute Auto 700 /uL (0-900); Monocytes Percent Auto 8.8 % (3-14); Neutrophils Absolute Auto 5000 /uL (1500-7000); Neutrophils Percent Auto 66.2 % (50-75); Platelet Count 205 X10^3/uL (150-400); Red Blood Cell Count 4.93 X10^6/uL (4.5-5.9); Red Cell Distribution Width 13.4 % (11.6-14.8); White Blood Cell Count 7.6 X10^3/uL (4.5-11.0)
[2022-09-18 12:04] LABS: Bacteria Urine None Seen; Culture Indicated Urine Cult Not Indicated; RBC Urine None Seen (0-5/HPF); Squamous Epithelial Cell Urine 0-1 /HPF (0-5/HPF); WBC Urine 1-5/HPF (0-5/HPF)
[2022-09-18] MEDS: SODIUM CHLORIDE 0.9% 1,000 ML 1000 ML IV (12:25)
[2022-09-18 12:26] LABS: Alanine Aminotransferase 25 IU/L (<50); Albumin 4.3 g/dL (3.5-5.0); Albumin Globulin Ratio 1.2 (1.0-2.8); Alkaline Phosphatase 83 U/L (38-126); Aspartate Aminotransferase 31 IU/L (17-59); BUN Creatinine Ratio 16.2 (6-22); Bilirubin Total 0.9 mg/dL (0.2-1.3); Blood Urea Nitrogen 16 mg/dL (9-20); Calcium 9.3 mg/dL (8.4-10.2); Carbon Dioxide 29 mmol/L (22-32); Chloride 102 mmol/L (98-107); Estimated Glomerular Filt Rate > 60 mL/min (>60); Globulin 3.7 g/dL (1.7-4.1); Glucose 101 mg/dL (80-110); HEMOLYSIS < 15 (0-50); Lipase 448 U/L (23-300); Potassium 3.8 mmol/L (3.4-5.1); Sodium 140 mmol/L (137-145)
[2022-09-18] MEDS: METOCLOPRAMIDE 10 MG/2 ML INJ IV (12:33)
--- NOTE | 2022-09-18 12:55 | ED_ITS ---
HPI - Abdominal Pain <Hector Barrientos PA-C - Last Filed: 09/18/22 18:09> General Chief Complaint: Abdominal Pain Stated Complaint: V/N headache/belching T-1 Time Seen by Provider: 09/18/22 12:21 Source: patient Mode of arrival: Ambulatory History of Present Illness HPI narrative: This is a 77-year-old male presents emergency department due to approximately 24 hours of increased nausea and vomiting a episodes of over last 24 hours. Denies any hematemesis. Patient states that he has been having persistent nausea and vomiting for the last month and has been seen here in the ED multiple times for this but states that has worsened over the last 24 hours. Denies any abdominal pain, diarrhea, fevers, chest pain, shortness of breath, or any other concerning signs or symptoms. Patient also reports a mild headache but denies any neurologic changes, slurred speech, focal weakness, or any other concerning signs or symptoms. Related Data Home Medications Medication Instructions Recorded Confirmed ASPIRIN (Aspirin EC) 81 mg PO SEE INSTRUCTIONS ##0 10/02/12 08/01/20 CA PANTOTHENATE/FOLIC ACID/VIT 1 tab PO 3XW ##0 10/02/12 08/01/20 (MULTIVITAMIN) CALCIUM CARBONATE (Calcium) 600 mg PO BIDCC ##0 10/02/12 08/01/20 ascorbic acid (vitamin C) 500 mg 500 mg PO 3XW PRN cold prevention 10/02/12 08/01/20 tablet ##0 atorvastatin 20 mg tablet 20 mg PO DAILY 06/01/20 08/01/20 cholecalciferol (vitamin D3) 50 50 mcg PO DAILY 06/01/20 08/01/20 mcg (2,000 unit) capsule cyanocobalamin (vitamin B-12) 1,000 mcg PO 3XW 08/01/20 08/01/20 1,000 mcg tablet (Vitamin B-12) levothyroxine 50 mcg tablet 50 mcg PO AC 08/01/20 08/01/20 naphazoline 0.012 % eye drops 1 - 2 drp ophthalmic (eye) QID PRN 08/01/20 08/01/20 Dry Eyes vitamin B complex 1 tab PO 3XW 08/01/20 08/01/20 zinc 0.5 tab PO 3XW 08/01/20 08/01/20 Previous Rx's Medication Instructions Recorded hydrocortisone 2.5 % topical cream 1 applic SC QD-BID PRN hemorrhoids 09/02/22 with perineal applicator #30 grams hydrocortisone acetate 25 mg 25 mg SC BEDTIME PRN hemorrhoids 09/02/22 rectal suppository #12 ea ondansetron 4 mg disintegrating 4 mg PO Q8H PRN nausea and 09/02/22 tablet vomiting #10 tabs amoxicillin 875 mg-potassium 1 tab PO Q8H 5 days #15 tabs 09/18/22 clavulanate 125 mg tablet ondansetron 4 mg oral soluble film 4 mg PO Q8H PRN nausea and 09/18/22 vomiting #30 ea Allergies Allergy/AdvReac Type Severity Reaction Status Date / Time oxycodone Allergy Mild Rash on Verified 09/18/22 11:28 abdominal area Sulfa (Sulfonamide AdvReac Severe Vomiting Verified 09/18/22 11:28 Antibiotics) and Diarrhea ciprofloxacin AdvReac Verified 09/18/22 11:28 gemifloxacin AdvReac Verified 09/18/22 11:28 levofloxacin AdvReac Verified 09/18/22 11:28 moxifloxacin AdvReac Verified 09/18/22 11:28 norfloxacin AdvReac Verified 09/18/22 11:28 ofloxacin AdvReac Verified 09/18/22 11:28 Review of Systems <Hector Barrientos PA-C - Last Filed: 09/18/22 18:09> Review of Systems Narrative: GENERAL: Denies chills, fatigue, malaise, fever, sweats. HEENT: Denies sinus pain, ear pain, sore throat, difficulty swallowing, dizziness. RESPIRATORY: Denies dyspnea, cough, wheezing, hemoptysis, sputum. CARDIOVASCULAR: Denies chest pain, palpitations, orthopnea, edema, GASTROINTESTINAL: Reports nausea and vomiting, denies abdominal pain : Denies dysuria, frequency, incontinence, hematuria, urinary retention. MUSCULOSKELETAL: denies weakness, joint pain, or bony pain SKIN: Denies rash, skin lesions, or other NEUROLOGIC: Denies weakness, headache, numbness, change in speech, confusion, seizures, incoordination. PSYCHIATRIC: No concerning psychosocial issues. 12 point review of systems is negative except for those stated above Patient History <Hector Barrientos PA-C - Last Filed: 09/18/22 18:09> Medical History BPH NOS w/o ur obs/LUTS Elevated PSA Erectile dysfunction Osteoarthritis Rheumatoid arthritis Surgical History History of back surgery Family History Brother Hearing impaired Social History marital status: number of children: 1 household members: none occupational status: previously employed Smoking Status: Former smoker alcohol intake: current caffeine: Yes Smoking Status: Former smoker alcohol intake frequency: a few times a week Alcohol type: beer Substance Use Type: does not use Exam <Hector Barrientos PA-C - Last Filed: 09/18/22 18:09> Narrative Exam Narrative: GENERAL: Well-developed patient, in mild distress. HEAD: Atraumatic. Normocephalic. EYES: Pupils equal round and reactive. Extraocular motions intact. No scleral icterus. No injection or drainage. ENT: Nose without bleeding, purulent drainage. Throat without erythema, tonsillar hypertrophy or exudate. Airway patent. NECK: Trachea midline. Non tender CARDIOVASCULAR: Regular rate and rhythm without murmurs, gallops, or rubs. RESPIRATORY: Clear to auscultation. Breath sounds equal bilaterally. No wheezes, rales, or rhonchi. GASTROINTESTINAL: Abdomen soft, non-tender, nondistended. EXTREMITIES: No edema or joint tenderness. BACK: Nontender without deformity or crepitance. No flank tenderness. NEURO: AOx3. SKIN: No rash or erythema of visible areas Initial Vital Signs Initial Vital Signs: Vital Signs Temperature 97.9 F 09/18/22 11:21 Pulse Rate 65 09/18/22 11:21 Respiratory Rate 14 09/18/22 11:21 Blood Pressure 159/72 H 09/18/22 11:21 Pulse Oximetry 98 09/18/22 11:21 Oxygen Delivery Method Room Air 09/18/22 11:21 <Rebecca Lopes DO - Last Filed: 09/18/22 18:59> Initial Vital Signs Initial Vital Signs: Vital Signs Temperature 97.9 F 09/18/22 11:21 Pulse Rate 65 09/18/22 11:21 Respiratory Rate 14 09/18/22 11:21 Blood Pressure 159/72 H 09/18/22 11:21 Pulse Oximetry 98 09/18/22 11:21 Oxygen Delivery Method Room Air 09/18/22 11:21 Course <Hector Barrientos PA-C - Last Filed: 09/18/22 18:09> Orders Ordered: ED Orders 09/18/22 11:45 Complete Blood Count AUTO DIFF Stat Comprehensive Metabolic Panel Stat Lipase Stat 09/18/22 11:48 Urine Microscopic Stat 09/18/22 13:09 CT abdomen pelvis w con Stat CT head/brain wo con Stat Discontinued Medications Acetaminophen (Acetaminophen 325 Mg Tablet) 975 mg PO NOW ONE Stop: 09/18/22 12:24 Sodium Chloride (Normal Saline 0.9%) 1,000 mls @ 1,000 mls/hr IV BOLUS ONE Stop: 09/18/22 13:22 Last Infusion: 09/18/22 13:32 Dose: 0 mls/hr Documented By: Admin: 09/18/22 12:25 Dose: 1,000 mls/hr Documented By: EDUIN Lorazepam (Lorazepam 2 Mg/Ml Inj) 0.5 mg IV NOW ONE Stop: 09/18/22 13:43 Last Admin: 09/18/22 13:55 Dose: 0.5 mg Documented By: VICENTE Metoclopramide HCl (Metoclopramide 10 Mg/2 Ml Inj) 10 mg IV NOW ONE Stop: 09/18/22 12:31 Last Admin: 09/18/22 12:33 Dose: 10 mg Documented By: EDUIN Ondansetron HCl (Ondansetron 4 Mg Odt) 4 mg PO NOW PRN PRN Reason: Nausea And Vomiting Ondansetron HCl (Ondansetron 4 Mg/2 Ml Inj) 4 mg IV NOW PRN PRN Reason: Nausea And Vomiting Last Admin: 09/18/22 11:55 Dose: 4 mg Documented By: SEMAJ Vital Signs Vital signs: Vital Signs - 8 hr 09/18/22 11:21 09/18/22 11:58 09/18/22 12:00 Temperature 97.9 F Pulse Rate 65 67 Respiratory Rate 14 Blood Pressure 159/72 H 155/74 H Pulse Oximetry 98 99 Oxygen Delivery Method Room Air 09/18/22 12:00 09/18/22 12:30 09/18/22 12:30 Temperature Pulse Rate 67 69 Respiratory Rate 16 16 Blood Pressure 145/70 H Pulse Oximetry 98 98 Oxygen Delivery Method Room Air 09/18/22 13:00 09/18/22 13:00 09/18/22 13:30 Temperature Pulse Rate 68 Respiratory Rate Blood Pressure 142/76 H 144/70 H Pulse Oximetry 98 Oxygen Delivery Method Room Air 09/18/22 13:30 09/18/22 14:00 09/18/22 14:00 Temperature Pulse Rate 67 69 Respiratory Rate Blood Pressure 131/63 Pulse Oximetry 99 99 Oxygen Delivery Method Room Air 09/18/22 14:21 09/18/22 15:33 Temperature Pulse Rate 71 66 Respiratory Rate Blood Pressure 127/60 Pulse Oximetry 97 97 Oxygen Delivery Method <Rebecca Lopes, DO - Last Filed: 09/18/22 18:59> Orders Ordered: ED Orders 09/18/22 11:45 Complete Blood Count AUTO DIFF Stat Comprehensive Metabolic Panel Stat Lipase Stat 09/18/22 11:48 Urine Microscopic Stat 09/18/22 13:09 CT abdomen pelvis w con Stat CT head/brain wo con Stat Discontinued Medications Acetaminophen (Acetaminophen 325 Mg Tablet) 975 mg PO NOW ONE Stop: 09/18/22 12:24 Sodium Chloride (Normal Saline 0.9%) 1,000 mls @ 1,000 mls/hr IV BOLUS ONE Stop: 09/18/22 13:22 Last Infusion: 09/18/22 13:32 Dose: 0 mls/hr Documented By: Admin: 09/18/22 12:25 Dose: 1,000 mls/hr Documented By: EDUIN Lorazepam (Lorazepam 2 Mg/Ml Inj) 0.5 mg IV NOW ONE Stop: 09/18/22 13:43 Last Admin: 09/18/22 13:55 Dose: 0.5 mg Documented By: VICENTE Metoclopramide HCl (Metoclopramide 10 Mg/2 Ml Inj) 10 mg IV NOW ONE Stop: 09/18/22 12:31 Last Admin: 09/18/22 12:33 Dose: 10 mg Documented By: EDUIN Ondansetron HCl (Ondansetron 4 Mg Odt) 4 mg PO NOW PRN PRN Reason: Nausea And Vomiting Ondansetron HCl (Ondansetron 4 Mg/2 Ml Inj) 4 mg IV NOW PRN PRN Reason: Nausea And Vomiting Last Admin: 09/18/22 11:55 Dose: 4 mg Documented By: AMU Vital Signs Vital signs: Vital Signs - 8 hr 09/18/22 11:21 09/18/22 11:58 09/18/22 12:00 Temperature 97.9 F Pulse Rate 65 67 Respiratory Rate 14 Blood Pressure 159/72 H 155/74 H Pulse Oximetry 98 99 Oxygen Delivery Method Room Air 09/18/22 12:00 09/18/22 12:30 09/18/22 12:30 Temperature Pulse Rate 67 69 Respiratory Rate 16 16 Blood Pressure 145/70 H Pulse Oximetry 98 98 Oxygen Delivery Method Room Air 09/18/22 13:00 09/18/22 13:00 09/18/22 13:30 Temperature Pulse Rate 68 Respiratory Rate Blood Pressure 142/76 H 144/70 H Pulse Oximetry 98 Oxygen Delivery Method Room Air 09/18/22 13:30 09/18/22 14:00 09/18/22 14:00 Temperature Pulse Rate 67 69 Respiratory Rate Blood Pressure 131/63 Pulse Oximetry 99 99 Oxygen Delivery Method Room Air 09/18/22 14:21 09/18/22 15:33 Temperature Pulse Rate 71 66 Respiratory Rate Blood Pressure 127/60 Pulse Oximetry 97 97 Oxygen Delivery Method MDM - Abdominal Pain <Hector Barrientos PA-C - Last Filed: 09/18/22 18:09> Lab Data 09/18/22 11:45 09/18/22 11:45 Labs: Lab Results 09/18/22 09/18/22 09/18/22 Range/Units 11:45 11:45 11:48 WBC 7.6 (4.5-11.0) X10^3/uL RBC 4.93 (4.5-5.9) X10^6/uL Hgb 15.7 (13.5-17.5) g/dL Hct 46.2 (41-53) % MCV 93.6 (80-100) fL MCH 31.9 (26-34) PG MCHC 34.0 (30-36) % RDW 13.4 (11.6-14.8) % Plt Count 205 (150-400) X10^3/uL Neut % (Auto) 66.2 (50-75) % Lymph % (Auto) 22.2 L (25-40) % Williams % (Auto) 8.8 (3-14) % Eos % (Auto) 1.9 L (2-4) % Baso % (Auto) 0.9 (0-2) % Neut # (Auto) 5000 (5118-6193) /uL Lymph # (Auto) 1700 (7875-2190) /uL Williams # (Auto) 700 (0-900) /uL Eos # (Auto) 100 (0-450) /uL Baso # (Auto) 100 (0-100) /uL Sodium 140 (137-145) mmol/L Potassium 3.8 (3.4-5.1) mmol/L Chloride 102 (98-107) mmol/L Carbon Dioxide 29 (22-32) mmol/L BUN 16 (9-20) mg/dL Creatinine 0.99 (0.66-1.25) mg/dL Estimated GFR > 60 (>60) mL/min BUN/Creatinine Ratio 16.2 (6-22) Glucose 101 (80-110) mg/dL Calcium 9.3 (8.4-10.2) mg/dL Total Bilirubin 0.9 (0.2-1.3) mg/dL AST 31 (17-59) IU/L ALT 25 (<50) IU/L Alkaline Phosphatase 83 (38-126) U/L Total Protein 8.0 (6.3-8.2) g/dL Albumin 4.3 (3.5-5.0) g/dL Globulin 3.7 (1.7-4.1) g/dL Albumin/Globulin Ratio 1.2 (1.0-2.8) Lipase 448 H (23-300) U/L Urine RBC None seen (0-5/HPF) Urine WBC 1-5/hpf (0-5/HPF) Ur Squamous Epith Cells 0-1 /hpf (0-5/HPF) Urine Bacteria None seen (None) Ur Culture Indicated? Cult not indicated Point of care testing: Urine Dip Bedside Urine Glucose Negative Bedside Urine Bilirubin - Negative Bedside Urine Ketone +/- 5 Urine Specific [place] 1.015 Bedside Urine Occult Blood - Negative Bedside Urine pH 6 Bedside Urine Protein +/- 15 Bedside Urine Urobilinogen - Negative Bedside Urine Nitrite - Negative Bedside Urine Leukocytes - Negative Esterase Imaging Data CT scan - head: Radiologist's Impression: PROCEDURE: CT HEAD/BRAIN WO CON INDICATIONS: Headache TECHNIQUE: Noncontrast 4.5 mm thick angled axial sections acquired from the foramen magnum to the vertex, with coronal and sagittal reformats. For radiation dose reduction, the following was used: automated exposure control, adjustment of mA and/or kV according to patient size. COMPARISON: [facility], CT, CT HEAD/BRAIN WO CON, 08/01/2020, 15:36. FINDINGS: Image quality: Excellent. CSF spaces: Basal cisterns are patent. No extra-axial fluid collections. The ventricles are symmetric in size and shape. Brain: No intracranial bleeds or masses. There is cerebral volume loss for age, with resultant ventricular and sulcal prominence. There are periventricular and deep white matter chronic small vessel ischemic changes. There is intracranial internal carotid artery atherosclerosis. Skull and face: Calvarium and visualized facial bones appear intact, without suspicious lesions. Sinuses: Visualized sinuses and mastoids are clear. IMPRESSION: Study within normal limits for age, without a cause headache identified. No hemorrhage, masses, or mass effect can be seen to the limits of noncontrast head CT. Dictated by: Preston Cheung M.D. on 09/18/2022 at 12:49 Approved by: Preston Cheung M.D. on 09/18/2022 at 12:50 CT scan - abdomen/pelvis: Radiologist's Impression: [address] [id number] Scan ReportSigned Patient: Samuel Manning R#: [id number]: 3Acct:[id number]/Sex: 77 / MDate of Service: 09/18/22Loc: EDAccession Number: [id number] Procedure: CT abdomen pelvis w con Ordering Provider: Hector Barrientos P.A-C PROCEDURE: CT ABDOMEN PELVIS W CON INDICATIONS: Persistent N/V TECHNIQUE: After the administration of intravenous contrast, axial sections acquired from the lung bases to the pubic symphysis. Coronal and sagittal reformats were performed. For radiation dose reduction, the following was used: automated exposure control, adjustment of mA and/or kV according to patient size. COMPARISON: [facility], CT, CT ABDOMEN PELVIS W CON, 08/18/2022, 15:37. FINDINGS: Image quality: Excellent. Lung bases: Stable 1 centimeter nodule in the right lower lobe (5/24). Stable 5 millimeters solid nodule in the right lower lobe (5/15). Heart: No significant findings. ABDOMEN: Liver: Unremarkable. Gallbladder: Mild gallbladder wall irregularity. No hydrops. No pe richolecystic edema to suggest inflammation. Biliary ducts: Unremarkable. Pancreas: Unremarkable. Spleen: Unremarkable. Adrenal Glands: Unremarkable. Kidneys and Ureters: Moderate burden of bilateral nonobstructing stones. Additional junction cortical defects of the left kidney, consistent with prior insult/injury. No hydronephrosis.. Stomach and Bowel: Colonic diverticulosis without evidence of diverticulitis. Mild wall thickening of the descending colon, with wall striation; colonic diverticula are not present within this region. Peritoneum: No abnormal intraperitoneal fluid. No free air. Ventral Wall: No hernias. Abdominal Nodes: No retroperitoneal or mesenteric adenopathy by size criteria. Vessels: Aorta and inferior vena cava are normal in size. PELVIS: Pelvic Organs: Unremarkable. Bladder: Unremarkable. Pelvic Nodes: No enlarged lymph nodes. Miscellaneous: Fat within the right inguinal canal. Bones: Unremarkable. IMPRESSION: Suspect mild descending colonic colitis, given wall thickening and wall striation (in the absence of segmental diverticula). Differential includes artifact from underdistention. No evidence of bowel obstruction. Resolved gallbladder wall thickening. Stable pulmonary nodules, recommend six-month follow-up. MDM Narrative Medical decision making narrative: MDM * differential diagnosis includes but not limited to gastroenteritis, colitis, acute mesenteric ischemia, appendicitis, cholecystitis, ulcerative colitis, Crohn's, alcohol toxicity, marijuana hyperemesis syndrome * Prior records reviewed: Patient was seen here 16 days ago with due to episodes of vomiting nausea diarrhea. Was also seen in the emergency department approximately a week prior to that for similar symptoms. No history of abdominal surgery. He has been referred to Gastroenterology by his PCP. Had a CT that showed abdomen pelvis with contrast showing lung nodules measuring up to 9 mm, no gallstones however moderate inflammatory changes of the gallbladder as well as the dilatation of the cystic duct. Adult abdominal ultrasound was also ordered which showed no concerning abnormalities. Patient did test positive for a UTI Macrobid as prescribed. Also given follow-up urology information if symptoms continue. Patient was also seen 2 years ago for a TIA. Symptoms included dizziness left- sided facial tingling and left arm numbness. Patient was admitted for obs for a TIA.He then had a MRI MRA of the head neck which showed 70-75% stenosis of the left internal carotid artery as well as 50% stenosis of the right internal carotid artery. He had high-grade stenoses in the left vertebral artery and moderate stenosis in the right vertebral artery. He also had high-grade stenosis in the left posterior cerebral artery and high-grade stenosis in the right posterior cerebral artery. I discussed this with Russ Mann vascular surgery with her PA oncology rep specialist Richelle Godinez. She also discussed with 1 of her physicians. Due to the concern of possible over read on the MRI MRA they recommended doing a CT angiogram of the head and neck. Patient declined the CTA of the head and neck as he wanted to go home. History of hypothyroidism as well. * My lab interpretation: No evidence of leukocytosis, not anemic, CMP unr emarkable other than an elevated lipase although only mildly elevated at 448. * My imgaing interpretation: CT showed no abnormalities other than the colitis noted above * Clinical Decision Rules/Scores evaluated: None * Independent discussions with: None ED Course: This is a 77-year-old male presents emergency department due to multiple episodes here 3 times for similar complaint it ultrasound from previous visit showed no abnormality and patient had no right upper quadrant tenderness palpation. Did not order ultrasound at this time. Ordered a CT abdomen and pelvis with contrast which showed mild colitis which may be causing the patient's symptoms. Patient does not have any UTI symptoms as before that would need further workup. Lab work was unremarkable. Recommend patient continue through with the Gastroenterology follow-up that he has already been given. Strongly advised him to call you to gastroenterology to make an appointment. Will also give the information of our general surgeons as they may be able to do an endoscopy earlier than what you Tess has available. Patient's nausea vomiting was controlled with the medications prescribed. Patient will prescribed a short course of Augmentin to treat the possible colitis this is maybe causing the symptoms. Patient was given a L of fluids as well. Lab work did show an elevated lipase but low concern for acute pancreatitis. CT head was unremarkable. Ordered as patient reported having a headache. Neuro exam o therwise normal. Shared Decision Making: Discussed plan with the patient is comfortable with plan Social Considerations: None Disposition: Discharged to home <Rebecca Lopes - Last Filed: 09/18/22 18:59> Lab Data Labs: Lab Results 09/18/22 09/18/22 09/18/22 Range/Units 11:45 11:45 11:48 WBC 7.6 (4.5-11.0) X10^3/uL RBC 4.93 (4.5-5.9) X10^6/uL Hgb 15.7 (13.5-17.5) g/dL Hct 46.2 (41-53) % MCV 93.6 (80-100) fL MCH 31.9 (26-34) PG MCHC 34.0 (30-36) % RDW 13.4 (11.6-14.8) % Plt Count 205 (150-400) X10^3/uL Neut % (Auto) 66.2 (50-75) % Lymph % (Auto) 22.2 L (25-40) % Williams % (Auto) 8.8 (3-14) % Eos % (Auto) 1.9 L (2-4) % Baso % (Auto) 0.9 (0-2) % Neut # (Auto) 5000 (2877-9479) /uL Lymph # (Auto) 1700 (4354-0187) /uL Williams # (Auto) 700 (0-900) /uL Eos # (Auto) 100 (0-450) /uL Baso # (Auto) 100 (0-100) /uL Sodium 140 (137-145) mmol/L Potassium 3.8 (3.4-5.1) mmol/L Chloride 102 (98-107) mmol/L Carbon Dioxide 29 (22-32) mmol/L BUN 16 (9-20) mg/dL Creatinine 0.99 (0.66-1.25) mg/dL Estimated GFR > 60 (>60) mL/min BUN/Creatinine Ratio 16.2 (6-22) Glucose 101 (80-110) mg/dL Calcium 9.3 (8.4-10.2) mg/dL Total Bilirubin 0.9 (0.2-1.3) mg/dL AST 31 (17-59) IU/L ALT 25 (<50) IU/L Alkaline Phosphatase 83 (38-126) U/L Total Protein 8.0 (6.3-8.2) g/dL Albumin 4.3 (3.5-5.0) g/dL Globulin 3.7 (1.7-4.1) g/dL Albumin/Globulin Ratio 1.2 (1.0-2.8) Lipase 448 H (23-300) U/L Urine RBC None seen (0-5/HPF) Urine WBC 1-5/hpf (0-5/HPF) Ur Squamous Epith Cells 0-1 /hpf (0-5/HPF) Urine Bacteria None seen (None) Ur Culture Indicated? Cult not indicated Point of care testing: Urine Dip Bedside Urine Glucose Negative Bedside Urine Bilirubin - Negative Bedside Urine Ketone +/- 5 Urine Specific [place] 1.015 Bedside Urine Occult Blood - Negative Bedside Urine pH 6 Bedside Urine Protein +/- 15 Bedside Urine Urobilinogen - Negative Bedside Urine Nitrite - Negative Bedside Urine Leukocytes - Negative Esterase Discharge Plan Departure Patient Disposition: Home Clinical Impression: Colitis Instructions: DI for Colitis Activity Restrictions/Additional Instructions: Thank you for coming to the [facility] Emergency Department today. As we discussed the CT showed evidence of mild colitis which is inflammation of the colon. Please take the antibiotics prescribed to help treat this. I also strongly recommend you call the [place] [facility] number to arrange an appointment as this may be faster than waiting for them to call you. We will also attached information for our general surgeons will be able to perform endoscopy and they may be able see you sooner than the providers. Also recommend you follow-up with your primary care provider as they may be able to refer to other chairlift operator that maybe seeing you sooner as well. The CT head was unremarkable. I hope you feel better soon. Prescriptions: New amoxicillin-pot clavulanate 875-125 mg tablet 1 tab PO Q8H 5 Days Qty: 15 0RF ondansetron 4 mg film 4 mg PO Q8H PRN (Reason: nausea and vomiting) Qty: 30 0RF No Action ASPIRIN (Aspirin EC) 81 mg PO SEE INSTRUCTIONS Qty: 0 Rx Instructions: Patient has not started taking this CA PANTOTHENATE/FOLIC ACID/VIT (MULTIVITAMIN) 1 tab PO 3XW Qty: 0 CALCIUM CARBONATE (Calcium) 600 mg PO BIDCC Qty: 0 ascorbic acid (vitamin C) 500 MG tablet 500 mg PO 3XW PRN (Reason: cold prevention) Qty: 0 cyanocobalamin (vitamin B-12) [Vitamin B-12] 1,000 mcg Tablet 1,000 mcg PO 3XW naphazoline 0.012 % Drops 1 - 2 drp OPHTHALMIC (EYE) QID PRN (Reason: Dry Eyes) levothyroxine 50 mcg tablet 50 mcg PO AC Rx Instructions: Take 30min prior to breakfast vitamin B complex Tablet 1 tab PO 3XW Rx Instructions: 500mg of B3 zinc Tablet,Chewable 0.5 tab PO 3XW Rx Instructions: Take 6mg (0.5 tab of 12mg) ondansetron 4 mg tablet,disintegrating 4 mg PO Q8H PRN (Reason: nausea and vomiting) Qty: 10 0RF hydrocortisone acetate 25 mg suppository 25 mg SC BEDTIME PRN (Reason: hemorrhoids) Qty: 12 0RF hydrocortisone 2.5 % cream with perineal applicator 1 applic SC QD-BID PRN (Reason: hemorrhoids) Qty: 30 0RF atorvastatin 20 mg tablet 20 mg PO DAILY cholecalciferol (vitamin D3) 50 mcg (2,000 unit) capsule 50 mcg PO DAILY Referrals: Zhao Bolanos MD [Physician] - (for possible endoscopy for persistent n/v ) Hector Barrientos PA-C [Emergency Provider] - Deonte Patterson MD [Primary Care Provider] - Stand Alone Forms: Patient Portal/API <Rebecca Lopes DO - Last Filed: 09/18/22 18:59> Cosign ED Attending Lesleeature Attestation: I was immediately available in the department for consultation.
--- NOTE | 2022-09-18 13:09 | DI.CT.S_ITS ---
PROCEDURE: CT ABDOMEN PELVIS W CON INDICATIONS: Persistent N/V TECHNIQUE: After the administration of intravenous contrast, axial sections acquired from the lung bases to the pubic symphysis. Coronal and sagittal reformats were performed. For radiation dose reduction, the following was used: automated exposure control, adjustment of mA and/or kV according to patient size. COMPARISON: [facility], CT, CT ABDOMEN PELVIS W CON, 08/18/2022, 15:37. FINDINGS: Image quality: Excellent. Lung bases: Stable 1 centimeter nodule in the right lower lobe (5/24). Stable 5 millimeters solid nodule in the right lower lobe (5/15). Heart: No significant findings. ABDOMEN: Liver: Unremarkable. Gallbladder: Mild gallbladder wall irregularity. No hydrops. No pericholecystic edema to suggest inflammation. Biliary ducts: Unremarkable. Pancreas: Unremarkable. Spleen: Unremarkable. Adrenal Glands: Unremarkable. Kidneys and Ureters: Moderate burden of bilateral nonobstructing stones. Additional junction cortical defects of the left kidney, consistent with prior insult/injury. No hydronephrosis.. Stomach and Bowel: Colonic diverticulosis without evidence of diverticulitis. Mild wall thickening of the descending colon, with wall striation; colonic diverticula are not present within this region. Peritoneum: No abnormal intraperitoneal fluid. No free air. Ventral Wall: No hernias. Abdominal Nodes: No retroperitoneal or mesenteric adenopathy by size criteria. Vessels: Aorta and inferior vena cava are normal in size. PELVIS: Pelvic Organs: Unremarkable. Bladder: Unremarkable. Pelvic Nodes: No enlarged lymph nodes. Miscellaneous: Fat within the right inguinal canal. Bones: Unremarkable. IMPRESSION: Suspect mild descending colonic colitis, given wall thickening and wall striation (in the absence of segmental diverticula). Differential includes artifact from underdistention. No evidence of bowel obstruction. Resolved gallbladder wall thickening. Stable pulmonary nodules, recommend six-month follow-up. Dictated by: Bhaskar Power M.D. on 09/18/2022 at 13:58 Approved by: Bhaskar Power M.D. on 09/18/2022 at 14:04
--- NOTE | 2022-09-18 13:09 | DI.CT.S_ITS ---
PROCEDURE: CT HEAD/BRAIN WO CON INDICATIONS: Headache TECHNIQUE: Noncontrast 4.5 mm thick angled axial sections acquired from the foramen magnum to the vertex, with coronal and sagittal reformats. For radiation dose reduction, the following was used: automated exposure control, adjustment of mA and/or kV according to patient size. COMPARISON: [facility], CT, CT HEAD/BRAIN WO CON, 08/01/2020, 15:36. FINDINGS: Image quality: Excellent. CSF spaces: Basal cisterns are patent. No extra-axial fluid collections. The ventricles are symmetric in size and shape. Brain: No intracranial bleeds or masses. There is cerebral volume loss for age, with resultant ventricular and sulcal prominence. There are periventricular and deep white matter chronic small vessel ischemic changes. There is intracranial internal carotid artery atherosclerosis. Skull and face: Calvarium and visualized facial bones appear intact, without suspicious lesions. Sinuses: Visualized sinuses and mastoids are clear. IMPRESSION: Study within normal limits for age, without a cause headache identified. No hemorrhage, masses, or mass effect can be seen to the limits of noncontrast head CT. Dictated by: Preston Cheung M.D. on 09/18/2022 at 12:49 Approved by: Preston Cheung M.D. on 09/18/2022 at 12:50
--- NOTE | 2022-09-18 13:30 | PC.NURSE ---
Patient reports continued nausea, does not feel he can tolerate PO. Reports frustration of recurrence of episodes.
[2022-09-18] MEDS: LORazepam 2 MG/ML INJ 0.5 MG IV (13:55)
== END 2022-09-18 15:40 | disposition home or self-care (01) ==
PROVIDERS: Emergency Medicine; Emergency Provider Physician Assistant Medical; PCP Family Medicine
DX: K52.9 Noninfective gastroenteritis and colitis, unspecified (principal)
CPT/HCPCS: 36415; 70450; 74177; 80053; 81003; 81015; 83690; 85025; 96361; 96374; 96375; 99284; J2060; J2405; J2765; Q9967

== ENCOUNTER → 2022-11-06 07:40 | Outpatient (CLI) | payer MEDICARE, OTHER, SELFPAY ==
[2020-08-01 18:33] VITALS: BMI 22.8
--- NOTE | 2022-11-06 | DI.NM.S_ITS ---
PROCEDURE: NM GASTRIC EMPTYING STUDY RADIOPHARMACEUTICAL: 1 mCi Tc-99m sulfur colloid in an egg sandwich. INDICATIONS: Nausea TECHNIQUE: A Tc-99m labeled sulfur colloid labeled egg sandwich or oatmeal was served to the patient. Anterior and posterior planar images of the abdomen were obtained at 0 minutes and 30 minutes, then at hourly intervals up to 4 hours. The patient was upright and ambulating during the interval. COMPARISON: None. FINDINGS: The stomach has normal size, morphology, and position. There is delayed emptying of solid gastric contents from the stomach by visual inspection. No gastroesophageal reflux is visualized. The percentage of tracer retained at specific time points are as follows: Time point Percent gastric retention Normal range 30 minutes 96% 70% or more 1 hour 85% 30% to 90% 2 hours 57% 60% or less 3 hours 35% 30% or less 4 hours 20% 10% or less IMPRESSION: Positive for delayed gastric emptying. Dictated by: Neptali Gardner M.D. on 11/06/2022 at 13:15 Approved by: Neptali Gardner M.D. on 11/06/2022 at 13:16
== END ==
PROVIDERS: PCP Family Medicine; Referring Provider Physician Assistant; Visit Provider Physician Assistant
DX: R11.0 Nausea (principal)
CPT/HCPCS: 78264; A9541

== ENCOUNTER 2023-01-03 12:23 | Emergency (ER) | payer MEDICARE, OTHER, SELFPAY ==
[2020-08-01 18:33] VITALS: BMI 22.8
[2023-01-03] VITALS (10 sets, daily range): BP systolic 159–190; BP diastolic 70–80; PULSE 56–68; RESP 15; TEMP 36.1; O2SAT 96–100; BMI 21.1
[2023-01-03] MEDS: SODIUM CHLORIDE 0.9% 1,000 ML 1000 ML IV (14:36)
[2023-01-03 14:41] LABS: Add Manual Diff / Slide Review NO; Basophils Absolute Auto 0 /uL (0-100); Basophils Percent Auto 0.8 % (0-2); Eosinophils Absolute Auto 100 /uL (0-450); Eosinophils Percent Auto 1.4 % (2-4); Hematocrit 43.9 % (41-53); Hemoglobin 14.9 g/dL (13.5-17.5); Lymphocytes Absolute Auto 1700 /uL (1100-4500); Lymphocytes Percent Auto 31.2 % (25-40); Mean Corpuscular HGB Conc 33.9 % (30-36); Mean Corpuscular Hemoglobin 31.3 PG (26-34); Mean Corpuscular Volume 92.4 fL (80-100); Monocytes Absolute Auto 500 /uL (0-900); Monocytes Percent Auto 9.7 % (3-14); Neutrophils Absolute Auto 3000 /uL (1500-7000); Neutrophils Percent Auto 56.9 % (50-75); Platelet Count 167 X10^3/uL (150-400); Red Blood Cell Count 4.75 X10^6/uL (4.5-5.9); Red Cell Distribution Width 12.9 % (11.6-14.8); White Blood Cell Count 5.3 X10^3/uL (4.5-11.0)
[2023-01-03 14:45] LABS: Alanine Aminotransferase 26 IU/L (<50); Albumin 4.2 g/dL (3.5-5.0); Albumin Globulin Ratio 1.2 (1.0-2.8); Alkaline Phosphatase 80 U/L (38-126); Aspartate Aminotransferase 41 IU/L (17-59); BUN Creatinine Ratio 12.6 (6-22); Bilirubin Total 0.6 mg/dL (0.2-1.3); Blood Urea Nitrogen 13 mg/dL (9-20); Calcium 9.7 mg/dL (8.4-10.2); Carbon Dioxide 31 mmol/L (22-32); Chloride 101 mmol/L (98-107); Estimated Glomerular Filt Rate > 60 mL/min (>60); Globulin 3.6 g/dL (1.7-4.1); Glucose 114 mg/dL (80-110); HEMOLYSIS 29 (0-50); Lipase 95 U/L (23-300); Potassium 4.1 mmol/L (3.4-5.1); Sodium 139 mmol/L (137-145); Total Protein 7.8 g/dL (6.3-8.2)
--- NOTE | 2023-01-03 15:08 | ED.NAVMDI ---
HPI - Nausea/Vomiting/Diarrhea General Chief complaint: Nausea/Vomiting/Diarrhea Stated complaint: gastroperisis/disoriented/weak/N Time Seen by Provider: 01/03/23 14:33 Source: patient Mode of arrival: Ambulatory History of Present Illness HPI Narrative: This is a 77-year-old male with history of hypothyroidism, rheumatoid arthritis, dyslipidemia delayed gastric emptying diagnosed on 11/06/2022 with gastric emptying new med scan. Patient has been following with Gastroenterology he will have episodes where he has nausea and vomiting for about 2 days and then will start to have increasing were improving symptoms. He states he is on day 4 and isn't starting to have much improvement. He states he has been through sort of his usual cycle usually starts to feel much better and has not. Patient denies fevers or chills. No passing out, no chest pain, no shortness of breath, no diaphoresis. He states he sometimes is having nausea. He is not having anymore vomiting for the past 2 days. He states he can typically eat some throughout these episodes. He was taking Reglan regularly, he reached out to his ordnance truck installation supervisor who also prescribe prochlorperazine. No abdominal back or flank pain. No diarrhea or constipation. He states he is having stools although less amount of output. No black or bloody stools. No dysuria, urgency or frequency. No new swelling in his extremities. Patient states he has been referred to Darlene ghosh for follow-up has not appointment in January. Former smoker, occasional alcohol, no illicit. No marijuana. Dr. Patterson is his PCP. He states that he does feel little shaky but isn't having any falls, he states when he takes shower makes it little lightheaded. He states he has been able to eat and drink. He states he has had about 15 lb of weight loss since July of 2022 but when he is focusing on his eating he will gain a little bit of weight. He has had imaging to evaluate for malignancy. His primary care physician is Dr. Patterson. His gastroenterolgist is in [place]. Related Data Home Medications Medication Instructions Recorded Confirmed ASPIRIN (Aspirin EC) 81 mg PO SEE INSTRUCTIONS ##0 10/02/12 08/01/20 CA PANTOTHENATE/FOLIC ACID/VIT 1 tab PO 3XW ##0 10/02/12 08/01/20 (MULTIVITAMIN) CALCIUM CARBONATE (Calcium) 600 mg PO BIDCC ##0 10/02/12 08/01/20 ascorbic acid (vitamin C) 500 mg 500 mg PO 3XW PRN cold prevention 10/02/12 08/01/20 tablet ##0 atorvastatin 20 mg tablet 20 mg PO DAILY 06/01/20 08/01/20 cholecalciferol (vitamin D3) 50 50 mcg PO DAILY 06/01/20 08/01/20 mcg (2,000 unit) capsule cyanocobalamin (vitamin B-12) 1,000 mcg PO 3XW 08/01/20 08/01/20 1,000 mcg tablet (Vitamin B-12) levothyroxine 50 mcg tablet 50 mcg PO AC 08/01/20 08/01/20 naphazoline 0.012 % eye drops 1 - 2 drp ophthalmic (eye) QID PRN 08/01/20 08/01/20 Dry Eyes vitamin B complex 1 tab PO 3XW 08/01/20 08/01/20 zinc 0.5 tab PO 3XW 08/01/20 08/01/20 Previous Rx's Medication Instructions Recorded hydrocortisone 2.5 % topical cream 1 applic FL QD-BID PRN hemorrhoids 09/02/22 with perineal applicator #30 grams hydrocortisone acetate 25 mg 25 mg FL BEDTIME PRN hemorrhoids 09/02/22 rectal suppository #12 ea ondansetron 4 mg disintegrating 4 mg PO Q8H PRN nausea and 09/02/22 tablet vomiting #10 tabs ondansetron 4 mg oral soluble film 4 mg PO Q8H PRN nausea and 09/18/22 vomiting #30 ea Allergies Allergy/AdvReac Type Severity Reaction Status Date / Time oxycodone Allergy Mild Rash on Verified 01/03/23 12:30 abdominal area Sulfa (Sulfonamide AdvReac Severe Vomiting Verified 01/03/23 12:30 Antibiotics) and Diarrhea ciprofloxacin AdvReac Verified 01/03/23 12:30 gemifloxacin AdvReac Verified 01/03/23 12:30 levofloxacin AdvReac Verified 01/03/23 12:30 moxifloxacin AdvReac Verified 01/03/23 12:30 norfloxacin AdvReac Verified 01/03/23 12:30 ofloxacin AdvReac Verified 01/03/23 12:30 Review of Systems Review of Systems ROS Unobtainable: All systems reviewed & are unremarkable except as noted in HPI and below Patient History Medical History BPH NOS w/o ur obs/LUTS Elevated PSA Erectile dysfunction Osteoarthritis Rheumatoid arthritis Surgical History History of back surgery Family History Brother Hearing impaired Social History marital status: number of children: 1 household members: none occupational status: previously employed Smoking Status: Former smoker alcohol intake: current caffeine: Yes Smoking Status: Former smoker alcohol intake frequency: holidays/special occasions only Alcohol type: beer Substance Use Type: does not use Exam Narrative Exam Narrative: GENERAL: Alert and oriented x three, elderly male in mild distress. HEENT: Head normocephalic, atraumatic, EOMI, pupils reactive, face symmetric, moist mucous membranes NECK: Supple, full range of motion CARDIOVASCULAR: Regular rate and rhythm without murmurs, rubs or gallops. No JVD. No swelling bilateral lower extremities. RESPIRATORY: Breath sounds equal bilaterally, no wheezes rales or rhonchi. ABDOMEN: Soft, nontender. Nondistended. Normoactive bowel sounds all 4 quadrants. No guarding or rebound, rigidity, no mass : No CVA tenderness EXTREMITIES: Normal range of motion, no clubbing or edema. Neurovascularly intact NEUROLOGICAL: Cranial nerves II through XII grossly intact. Moving all extremities SKIN: Warm, dry, no petechiae, no rashes or lesions. Initial Vital Signs Initial Vital Signs: Vital Signs Temperature 97.0 F L 01/03/23 12:30 Pulse Rate 64 01/03/23 12:30 Respiratory Rate 15 01/03/23 12:30 Blood Pressure 159/70 H 01/03/23 12:30 Pulse Oximetry 100 01/03/23 12:30 Oxygen Delivery Method Room Air 01/03/23 12:30 Course Orders Ordered: ED Orders 01/03/23 12:51 CBC Auto Diff [Complete Blood Count AUTO DIFF] Stat CMP [Comprehensive Metabolic Panel] Stat Lipase Stat Discontinued Medications Acetaminophen (Acetaminophen 325 Mg Tablet) 975 mg PO NOW ONE Stop: 01/03/23 15:57 Last Admin: 01/03/23 16:09 Dose: 975 mg Documented By: JOSE Sodium Chloride (Normal Saline 0.9%) 1,000 mls @ 1,000 mls/hr IV BOLUS ONE Stop: 01/03/23 15:32 Last Infusion: 01/03/23 15:46 Dose: 0 mls/hr Documented By: JOSE(2) Admin: 01/03/23 14:36 Dose: 1,000 mls/hr Documented By: JOSE(2) Vital Signs Vital signs: Vital Signs - 8 hr 01/03/23 12:30 01/03/23 14:38 01/03/23 14:39 Temperature 97.0 F L Pulse Rate 64 56 L Respiratory Rate 15 Blood Pressure 159/70 H 176/80 H Pulse Oximetry 100 98 Oxygen Delivery Method Room Air 01/03/23 15:00 01/03/23 15:01 01/03/23 15:01 Temperature Pulse Rate 61 60 Respiratory Rate Blood Pressure 164/72 H Pulse Oximetry 97 98 Oxygen Delivery Method 01/03/23 15:30 01/03/23 15:30 01/03/23 15:52 Temperature Pulse Rate 63 Respiratory Rate Blood Pressure 160/74 H 190/80 H Pulse Oximetry 96 Oxygen Delivery Method 01/03/23 15:52 01/03/23 16:00 01/03/23 16:00 Temperature Pulse Rate 68 60 Respiratory Rate Blood Pressure 161/70 H Pulse Oximetry 96 98 Oxygen Delivery Method 01/03/23 16:29 01/03/23 16:30 Temperature Pulse Rate 60 Respiratory Rate Blood Pressure 163/80 H Pulse Oximetry 97 Oxygen Delivery Method MDM - Nausea/Vomiting/Diarrhea Lab Data 01/03/23 12:51 01/03/23 12:51 Labs: Lab Results 01/03/23 01/03/23 Range/Units 12:51 12:51 WBC 5.3 (4.5-11.0) X10^3/uL RBC 4.75 (4.5-5.9) X10^6/uL Hgb 14.9 (13.5-17.5) g/dL Hct 43.9 (41-53) % MCV 92.4 (80-100) fL MCH 31.3 (26-34) PG MCHC 33.9 (30-36) % RDW 12.9 (11.6-14.8) % Plt Count 167 (150-400) X10^3/uL Neut % (Auto) 56.9 (50-75) % Lymph % (Auto) 31.2 (25-40) % [place] % (Auto) 9.7 (3-14) % Eos % (Auto) 1.4 L (2-4) % Baso % (Auto) 0.8 (0-2) % Neut # (Auto) 3000 (1165-5760) /uL Lymph # (Auto) 1700 (1292-9009) /uL [place] # (Auto) 500 (0-900) /uL Eos # (Auto) 100 (0-450) /uL Baso # (Auto) 0 (0-100) /uL Sodium 139 (137-145) mmol/L Potassium 4.1 (3.4-5.1) mmol/L Chloride 101 (98-107) mmol/L Carbon Dioxide 31 (22-32) mmol/L BUN 13 (9-20) mg/dL Creatinine 1.03 (0.66-1.25) mg/dL Estimated GFR > 60 (>60) mL/min BUN/Creatinine Ratio 12.6 (6-22) Glucose 114 H (80-110) mg/dL Calcium 9.7 (8.4-10.2) mg/dL Total Bilirubin 0.6 (0.2-1.3) mg/dL AST 41 (17-59) IU/L ALT 26 (<50) IU/L Alkaline Phosphatase 80 (38-126) U/L Total Protein 7.8 (6.3-8.2) g/dL Albumin 4.2 (3.5-5.0) g/dL Globulin 3.6 (1.7-4.1) g/dL Albumin/Globulin Ratio 1.2 (1.0-2.8) Lipase 95 (23-300) U/L Urine Dip Bedside Urine Glucose Negative Bedside Urine Bilirubin - Negative Bedside Urine Ketone - Negative Urine Specific [place] 1.010 Bedside Urine Occult Blood - Negative Bedside Urine pH 6.5 Bedside Urine Protein - Negative Bedside Urine Urobilinogen - Negative Bedside Urine Nitrite - Negative Bedside Urine Leukocytes - Negative Esterase MDM Narrative Medical decision making narrative: This is a 77-year-old male with history of gastroparesis, described as feeling weak he has been a little lightheaded no syncope no falls. Patient's vitals here he is slightly hypertensive heart rates in the 60s vitals are overall appropriate. CBC shows no major changes, CMP shows a glucose of 114, LFTs are negative lipase is negative. Poc urine shows specific gravity 1.010, no ketones or protein. Patient was given a L fluids, discussed with patient he is having nausea intermittently he defers anything here additional. TSH was appropriate in August. Discussed about imaging but he defers at this time. Patient's state his ordnance truck installation supervisor talked about having patient admitted for IV nutrition but this time he does not have any major vital signs are lab abnormalities he is tolerating orals he has had slow decrease in weight over time. He does have follow up with more specialized gastroenterology in January. Discussed having him follow up with primary care but does not appear to be a candidate for tPA and are PEG tube at this time. He was given a prescription for prochlorperazine in addition his Reglan we did review the you could take these alternatively but not at the same time he has had Zofran which he is not found it helpful. Discussed with patient about EGD/Colonscopy, he has had these. He has had imaging, gastric emptying, labs are overall reassuring. I did discuss with his primary care physician. Patient has been tolerating orals fluids and solids for several days med typically even when he is having his episodes. Was encouraged to keep his follow-up appointment. Did review the prescription he was given with his family. Discharge Plan Departure Patient Disposition: Home Clinical Impression: Nausea Activity Restrictions/Additional Instructions: Please follow up with your gastroenterology appointment in January. I would discuss with Dr. Patterson in the meantime about other options for treatment. You can take the Reglan or prochlorperazine but would not take them at the same time. Continue your other home medications as prescribed. Please return for fevers, worsening symptoms, passing out, new chest pain, shortness of breath, persistent vomiting, black or bloody stools, new swelling in your extremities, back or abdominal pain or other new or concerning changes Prescriptions: No Action ASPIRIN (Aspirin EC) 81 mg PO SEE INSTRUCTIONS Qty: 0 Rx Instructions: Patient has not started taking this CA PANTOTHENATE/FOLIC ACID/VIT (MULTIVITAMIN) 1 tab PO 3XW Qty: 0 CALCIUM CARBONATE (Calcium) 600 mg PO BIDCC Qty: 0 ascorbic acid (vitamin C) 500 MG tablet 500 mg PO 3XW PRN (Reason: cold prevention) Qty: 0 cyanocobalamin (vitamin B-12) [Vitamin B-12] 1,000 mcg Tablet 1,000 mcg PO 3XW naphazoline 0.012 % Drops 1 - 2 drp OPHTHALMIC (EYE) QID PRN (Reason: Dry Eyes) levothyroxine 50 mcg tablet 50 mcg PO AC Rx Instructions: Take 30min prior to breakfast vitamin B complex Tablet 1 tab PO 3XW Rx Instructions: 500mg of B3 zinc Tablet,Chewable 0.5 tab PO 3XW Rx Instructions: Take 6mg (0.5 tab of 12mg) ondansetron 4 mg tablet,disintegrating 4 mg PO Q8H PRN (Reason: nausea and vomiting) Qty: 10 0RF hydrocortisone acetate 25 mg suppository 25 mg FL BEDTIME PRN (Reason: hemorrhoids) Qty: 12 0RF hydrocortisone 2.5 % cream with perineal applicator 1 applic FL QD-BID PRN (Reason: hemorrhoids) Qty: 30 0RF ondansetron 4 mg film 4 mg PO Q8H PRN (Reason: nausea and vomiting) Qty: 30 0RF atorvastatin 20 mg tablet 20 mg PO DAILY cholecalciferol (vitamin D3) 50 mcg (2,000 unit) capsule 50 mcg PO DAILY Referrals: Deonte Patterson MD [Primary Care Provider] - Stand Alone Forms: Patient Portal/API
[2023-01-03] MEDS: ACETAMINOPHEN 325 MG TABLET 975 MG PO (16:09)
== END 2023-01-03 16:30 | disposition home or self-care (01) ==
PROVIDERS: Emergency Provider Emergency Medicine; PCP Family Medicine
DX: R11.2 Nausea with vomiting, unspecified (principal)
CPT/HCPCS: 36415; 80053; 81003; 83690; 85025; 99284

== ENCOUNTER → 2023-12-07 13:38 | Outpatient (CLI) | payer MEDICARE, OTHER, SELFPAY ==
[2020-08-01 18:33] VITALS: BMI 22.8
--- NOTE | 2023-12-07 13:41 | DI.MRI.S_ITS ---
PROCEDURE: MR HEAD/BRAIN WO CON INDICATIONS: Muscle weakness (generalized) TECHNIQUE: Non-contrast axial T1 spin echo, axial T2 fast spin echo, sagittal and axial FLAIR, coronal T2 fast spin echo, axial gradient echo, axial diffusion and ADC through the brain. COMPARISON: [facility], CT, CT HEAD/BRAIN WO CON, 09/18/2022, 13:31. FINDINGS: Image quality: Excellent. CSF spaces: Ventricles appear symmetric in size and shape. Basal cisterns are patent. No extra-axial fluid collections. Brain: No intracranial bleeds or mass effects. There is cerebral volume loss for age. There are periventricular and deep white matter chronic small vessel ischemic changes. Brainstem appears normal. Diffusion-weighted images show no acute infarct. No chronic ischemic insults. Normal intravascular flow voids are present. Skull and face: Calvarial bone marrow is normal in signal. Orbits are normal. Right lens replacement. Sinuses: Sinuses and mastoids are clear. IMPRESSION: No cause for patient's symptoms is identified. No acute intracranial abnormalities. Age-related global volume loss and chronic microvascular ischemic changes. Dictated by: Jose Ronquillo M.D. on 12/07/2023 at 15:19 Approved by: Jose Ronquillo M.D. on 12/07/2023 at 15:21
== END ==
PROVIDERS: PCP Family Medicine; Referring Provider Family Medicine; Visit Provider Family Medicine
DX: M62.81 Muscle weakness (generalized) (principal); R26.89 Other abnormalities of gait and mobility
CPT/HCPCS: 70551

== ENCOUNTER → 2025-04-24 12:12 | Outpatient (CLI) | payer MEDICARE, OTHER, SELFPAY ==
[2020-08-01 18:33] VITALS: BMI 22.8
--- NOTE | 2025-04-24 12:15 | DI.MRI.S_ITS ---
PROCEDURE: MR THORACIC SPINE WO CON INDICATIONS: Compressive myelopathy/Myelopathy;difficulty walki TECHNIQUE: Noncontrast sagittal T1 spine echo and T2 fast spin echo, sagittal STIR, and T2 fast spin echo through the thoracic spine. COMPARISON: None. FINDINGS: Image quality: Excellent. Alignment and Curvature: There is normal bony alignment. Bone Marrow: Marrow is of normal overall signal. No acute vertebral body compression fractures. Spinal Cord: Visualized spinal cord is normal in size and signal. Paraspinous Soft Tissues: No paravertebral masses. Miscellaneous: Multilevel disc desiccation is present. Posterior central protrusion with superimposed extrusion at T7-8. There is indentation of the ventral thecal sac as well as cord.. Mild left posterior paracentral protrusion at T8-9, T10-11. Skvv-ea-vfwkdukh left foraminal narrowing T8-9, moderate bilateral T9-10, T10- 11, [id number]-[id number] left L1-2. IMPRESSION: Scattered bulges and protrusions most prominent T7-8 demonstrating posterior central protrusion with superimposed extrusion. Dictated by: Ryann Goldsmith M.D. on 04/24/2025 at 16:10 Approved by: Ryann Goldsmith M.D. on 04/24/2025 at 16:14
--- NOTE | 2025-04-24 12:15 | DI.MRI.S_ITS ---
PROCEDURE: MR CERVICAL SPINE WO CON INDICATIONS: Compressive myelopathy/Myelopathy;difficulty walki TECHNIQUE: Noncontrast sagittal T1 spin echo and T2 fast spin echo, sagittal STIR, foraminal oblique sagittal T2 fast spin echo, and axial gradient echo or T2 fast spin echo through the cervical spine. COMPARISON: None. FINDINGS: Image quality: Excellent. Alignment and Curvature: There is trace retrolisthesis of C3 on C4, C4 on C5, C5 on C6 and C6 on C7. Bone Marrow: Marrow demonstrates normal overall signal. Spinal Cord: Visualized spinal cord has normal size and signal. No cerebellar tonsillar herniation. Paraspinous Soft Tissues: No paravertebral masses. Prevertebral soft tissues are normal in thickness. Discs: Moderate to severe multilevel disc desiccation most severe at C3-4, C4-5 C5-6 and C6-7. C2-C3: No disc bulge, spinal stenosis or foraminal narrowing. C3-C4: Mild disc bulge with superimposed posterior central protrusion. There is effacement the anterior thecal sac as well as slight flattening of the anterior cord. Moderate right and sggm-lk-dyhupnso left foraminal narrowing with uncovertebral hypertrophy. C4-C5: Mild disc bulge with small posterior central protrusion. There is indentation of the anterior thecal sac. Moderate right and fiif-aq-sruchkis left foraminal narrowing with uncovertebral hypertrophy. C5-C6: Mild disc bulge with cmyw-[id number] spinal stenosis. Moderate bilateral foraminal narrowing with uncovertebral hypertrophy. C6-C7: Mild disc bulge with mild spinal stenosis. Moderate bilateral foraminal narrowing with uncovertebral hypertrophy. C7-T1: No disc bulge, spinal stenosis or foraminal narrowing. IMPRESSION: Multilevel disc bulges/protrusions. Multilevel overall moderate foraminal narrowing secondary to uncovertebral arthropathy. Dictated by: Ryann Goldsmith M.D. on 04/24/2025 at 15:56 Approved by: Ryann Goldsmith M.D. on 04/24/2025 at 16:05
== END ==
LOC: MRI 12:13
PROVIDERS: PCP Family Medicine; Referring Provider Psychiatry & Neurology Neurology; Visit Provider Psychiatry & Neurology Neurology
DX: G91.9 Hydrocephalus, unspecified (principal); G62.9 Polyneuropathy, unspecified; M50.31 Other cervical disc degeneration, high cervical region; M50.21 Other cervical disc displacement, high cervical region; M48.02 Spinal stenosis, cervical region; M51.34 Other intervertebral disc degeneration, thoracic region; M51.24 Other intervertebral disc displacement, thoracic region; R29.2 Abnormal reflex; R26.9 Unspecified abnormalities of gait and mobility; Z74.09 Other reduced mobility
CPT/HCPCS: 72141; 72146

== ENCOUNTER → 2025-04-25 14:11 | Outpatient (CLI) | payer MEDICARE, OTHER, SELFPAY ==
[2020-08-01 18:33] VITALS: BMI 22.8
--- NOTE | 2025-04-25 14:16 | DI.MRI.S_ITS ---
PROCEDURE: MR ANGIO NECK W CON INDICATIONS: Vertebrobasilar insufficiency TECHNIQUE: Axial and sagittal TruFISP through the neck. Coronal dynamic MRA after the administration of contrast in the arterial and venous phases, with rotating 3- dimensional maximum intensity projection (MIP) reformats constructed from subtraction images. COMPARISON: [facility], MR, MR HEAD/BRAIN WO CON, 04/25/2025, 14:19. [facility], MR, MR ANGIO HEAD WO CON, 04/25/2025, 14:19. [facility], MR, MR HEAD/BRAIN WO CON, 12/07/2023, 14:11. CT, CT HEAD/BRAIN WO CON, 09/18/2022, 13:31. [facility], CT, CT ANGIO HEAD AND NECK, 08/02/2020, 17:36. [facility], MR, MR STROKE, 08/02/2020, 10:30. CT, CT HEAD/BRAIN WO CON, 08/01/2020, 15:36. FINDINGS: Image quality: Excellent. Carotid system: Great vessels demonstrate a conventional anatomy as they arise from the aortic arch. The origins of the common carotid arteries appear normal. The calibers and courses of the common carotid arteries are likewise normal. The carotid bifurcations appear normal bilaterally. The internal carotid arteries demonstrate stenosis at the origin bilaterally, approximately 50% on the right and 70-75% on the left. This is relatively unchanged. Posterior circulation: Right vertebral artery dominance. Moderate stenosis is present at the origin of the right vertebral artery. High-grade stenosis is present at the origin of the left vertebral artery with diminutive flow distal to the origin. Multiple areas of high-grade stenosis are present in the V2, V3 and V4 segments of the left vertebral artery. Overall appearances are relatively stable. . Miscellaneous: Subclavian arteries are patent throughout. Pre-contrast images through the neck demonstrate no soft tissue abnormalities. IMPRESSION: Stable interval exam demonstrating high-grade stenosis at the origin of the left vertebral artery with multiple areas of short-segment stenosis within the V2, V3 and V4 segments. Stable appearance of 7 is 75% stenosis at the origin of the right internal carotid artery, approximately 50% stenosis on the left. Any quantitative measurements of stenosis were performed using NASCET criteria. Dictated by: Ryann Goldsmith M.D. on 04/27/2025 at 11:20 Approved by: Ryann Goldsmith M.D. on 04/27/2025 at 11:29
--- NOTE | 2025-04-25 14:16 | DI.MRI.S_ITS ---
PROCEDURE: MR ANGIO HEAD WO CON INDICATIONS: Vertebrobasilar insufficiency TECHNIQUE: Noncontrast axial 3-D [id number] MR angiogram, with 3-dimensional maximum intensity projection (MIP) reformats of the internal carotid arteries and posterior circulation then performed. COMPARISON: [facility], MR, MR ANGIO NECK W CON, 04/25/2025, 15:01. [facility], MR, MR HEAD/BRAIN WO CON, 04/25/2025, 14:19. [facility], MR, MR HEAD/BRAIN WO CON, 12/07/2023, 14:11. CT, CT HEAD/BRAIN WO CON, 09/18/2022, 13:31. CT, CT ANGIO HEAD AND NECK, 08/02/2020, 17:36. MR, MR STROKE, 08/02/2020, 10:30. CT, CT HEAD/BRAIN WO CON, 08/01/2020, 15:36. FINDINGS: Image quality: Excellent. Anterior circulation: Intracranial internal carotid arteries demonstrate atherosclerotic irregularity within the cavernous and supraclinoid segments with [id number] stenosis, right greater than left, relatively unchanged. The flow within the paired anterior cerebral arteries is normal and symmetric. The flow within the middle cerebral arteries is normal and symmetric. The anterior communicating artery is seen. No aneurysms. Posterior circulation: Visualized portions of the vertebral arteries demonstrate normal caliber, and join to form a normal appearing basilar artery. There is high- grade stenosis within the V4 segment of the left vertebral artery. High-grade stenosis is also present at the origin of the left posterior cerebral artery as well as the distal P1 segment. These are overall unchanged. No aneurysms. 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 Right vertebral artery is widely patent. Relatively stable appearance of high-grade stenosis at the origin of the left P1 segment of the posterior cerebral artery as well as distal P1 segment. Dictated by: Ryann Goldsmith M.D. on 04/27/2025 at 11:09 Approved by: Ryann Goldsmith M.D. on 04/27/2025 at 11:20
--- NOTE | 2025-04-25 14:16 | DI.MRI.S_ITS ---
PROCEDURE: MR HEAD/BRAIN WO CON INDICATIONS: Vertebrobasilar insufficiency TECHNIQUE: Non-contrast axial T1 spin echo, axial T2 fast spin echo, sagittal and axial FLAIR, coronal T2 fast spin echo, axial gradient echo, axial diffusion and ADC through the brain. COMPARISON: [facility], MR, MR ANGIO NECK W CON, 04/25/2025, 15:01. [facility], MR, MR ANGIO HEAD WO CON, 04/25/2025, 14:19. [facility], MR, MR HEAD/BRAIN WO CON, 12/07/2023, 14:11. CT, CT ANGIO HEAD AND NECK, 08/02/2020, 17:36. MR, MR STROKE, 08/02/2020, 10:30. CT, CT HEAD/BRAIN WO CON, 08/01/2020, 15:36. FINDINGS: Image quality: Excellent. CSF spaces: Ventricles appear symmetric in size and shape. Basal cisterns are patent. No extra-axial fluid collections. Brain: No intracranial bleeds or mass effects. There is cerebral volume loss for age. There are periventricular and deep white matter chronic small vessel ischemic changes. Brainstem appears normal. Diffusion-weighted images show no acute infarct. 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 Loss of flow void within the V4 segment of the left vertebral artery. This corresponds to previous area of stenosis. Skull and face: Calvarial bone marrow is normal in signal. Orbits are normal. Sinuses: Sinuses and mastoids are clear. IMPRESSION: 1. No acute intracranial process. 2. Moderate atrophy and chronic microvascular ischemic changes. 3. Loss of flow void within the left V4 segment of the left vertebral artery consistent with previous stenosis. Dictated by: Ryann Goldsmith M.D. on 04/27/2025 at 10:59 Approved by: Ryann Goldsmith M.D. on 04/27/2025 at 11:07
== END ==
PROVIDERS: PCP Family Medicine; Referring Provider Psychiatry & Neurology Neurology; Visit Provider Psychiatry & Neurology Neurology
DX: G91.9 Hydrocephalus, unspecified (principal); G62.9 Polyneuropathy, unspecified; I66.22 Occlusion and stenosis of left posterior cerebral artery; I65.23 Occlusion and stenosis of bilateral carotid arteries; I65.02 Occlusion and stenosis of left vertebral artery; R29.2 Abnormal reflex; R29.6 Repeated falls; Z74.09 Other reduced mobility
CPT/HCPCS: 70544; 70548; 70551; A9579